=== PATIENT | female | born 1975 | race Caucasian/White ===

== ENCOUNTER 2017-08-22 08:19 | Inpatient (IN) | payer MEDICAID ==
[~2017-08-22] VITALS: Ht 162.6 cm; Wt 99.8 kg
[2017-08-22 08:26] VITALS: BP_SYST 140
[2017-08-22] MEDS ORDERED: LORazepam 2 MG/ML VIAL (FOR ER USE) IVP ONE (09:00)
[2017-08-22] MEDS ORDERED: METH500T PO (09:04)
[2017-08-22] MEDS ORDERED: LORA-673 PO (09:04)
[2017-08-22] MEDS ORDERED: MORP15TA60 PO (09:04)
[2017-08-22] MEDS ORDERED: ALBMDI INH (09:04)
[2017-08-22] MEDS ORDERED: GABA-533 PO (09:04)
[2017-08-22] MEDS ORDERED: LEVO150T PO (09:04)
[2017-08-22] MEDS ORDERED: LUBI24CA5 PO (09:04)
[2017-08-22] MEDS ORDERED: HYDR-4100 PO (09:04)
[2017-08-22] MEDS ORDERED: PARO20TA51 PO (09:04)
[2017-08-22] MEDS ORDERED: MONT10TA25 PO (09:04)
[2017-08-22] MEDS ORDERED: RANI-362 PO (09:04)
[2017-08-22 09:13] LABS: BILIRUBIN,URINE NEGATIVE (NEGATIVE); BLOOD, URINE NEGATIVE (NEGATIVE); CLARITY/URINE CLEAR (CLEAR); COLOR,URINE YELLOW (YELLOW); GLUCOSE,URINE NEGATIVE (NEGATIVE); KETONES,URINE NEGATIVE (NEGATIVE); LEUKOCYTE ESTERASE ,URINE NEGATIVE (NEGATIVE); NITRITE, URINE NEGATIVE (NEGATIVE); PH,URINE 6.5 (5.0-8.0); PROTEIN URINE NEGATIVE (NEGATIVE); UROBILINOGEN,URINE 0.2 (0.2-1.0)
[2017-08-22 09:17] LABS: BASOPHILS % (AUTO) 0.4 % (0.0-2.0); EOSINOPHILS # (AUTO) 0.2 K/uL (0.0-0.4); EOSINOPHILS % (AUTO) 1.8 % (0.0-4.0); HEMATOCRIT 40.6 % (36-48); HEMOGLOBIN 13.1 g/dL (12.0-16.0); LYMPHOCYTES # (AUTO) 1.8 K/uL (1.0-5.5); LYMPHOCYTES % (AUTO) 15.6 % (20.5-51.5); MEAN CORPUSCULAR HEMOGLOBIN 28 pg (27-31); MEAN CORPUSCULAR HGB CONC 32 % (32-36); MEAN CORPUSCULAR VOLUME 85 fL (79.0-98.0); MONOCYTES # (AUTO) 0.6 K/uL (0.0-1.0); MONOCYTES % (AUTO) 4.8 % (1.7-9.3); NEUTROPHILS % (AUTO) 77.4 % (40.0-70.0); PLATELET COUNT (AUTO) 343 K/uL (130-430); RED BLOOD CELL COUNT(AUTO) 4.76 MIL/uL (4.2-6.2); RED CELL DISTRIBUTION WIDTH 13.6 % (9.0-15.0); WHITE BLOOD COUNT (AUTO) 11.6 K/uL (4.8-10.8)
[2017-08-22 09:18] LABS: CALCIUM 9.3 mg/dL (8.4-11.0); CREATININE 0.57 mg/dL (0.55-1.30); POTASSIUM 4.3 mmol/L (3.5-5.1)
[2017-08-22 09:23] LABS: ALBUMIN 3.5 g/dL (3.4-4.8); TOTAL BILIRUBIN 0.3 mg/dL (0.0-1.0)
[2017-08-22] MEDS ORDERED: levETIRAcetam 500 MG TABLET PO ONE (10:15)
[2017-08-22 11:13] VITALS: BP_SYST 135
[2017-08-22] MEDS ORDERED: ALBUTEROL MDI INHALATION 8 GM INH INH PRN (12:00)
[2017-08-22] MEDS ORDERED: ALBUTEROL SULFATE (PRN) 2.5 MG/3 ML VIAL.NEB INH (12:30)
[2017-08-22 12:53] VITALS: BP_SYST 135
[2017-08-22] MEDS ORDERED: METHOCARBAMOL 500 MG TABLET PO SCH (13:00)
[2017-08-22] MEDS: GABAPENTIN 400 MG CAPSULE PO SCH ×3 (13:02→21:23)
[2017-08-22] MEDS ORDERED: LEVOTHYROXINE SODIUM 0.15 MG TABLET PO ONE (14:00)
[2017-08-22] MEDS: METHOCARBAMOL 500 MG TABLET PO SCH ×2 (14:09→21:23)
[2017-08-22] MEDS ORDERED: ONDANSETRON HCL 4 MG/2 ML VIAL IVP ONE (14:45)
[2017-08-22 15:30] VITALS: BP_SYST 117
[2017-08-22] MEDS: LORazepam 2 MG/ML VIAL IVP PRN (16:10)
[2017-08-22 17:29] LABS: BARBITURATE, URINE NEGATIVE (NEG <=200); BENZODIAZEPINE, URINE POSITIVE (NEG <=150); CANNABINOID, URINE NEGATIVE (NEG <=50); COCAINE, URINE NEGATIVE (NEG <=150); METHAMPHETAMINES SCREEN,URINE NEGATIVE (NEG <=500); OPIATE, URINE POSITIVE (NEG <=100); PHENCYCLIDINE SCREEN,URINE NEGATIVE (NEG <=25); UR TRICYCLIC ANTIDEPRESSANTS NEGATIVE (NEG <=300); URINE AMPHETAMINE NEGATIVE (NEG <=500); URINE METHADONE NEGATIVE (NEG <=200); URINE OXYCODONE SCREEN NEGATIVE (NEG <=100); URINE PROPOXYPHENE SCREEN NEGATIVE (NEG <=300)
[2017-08-22] MEDS: LUBIPROSTONE 24 MCG CAPSULE PO SCH (18:00)
[2017-08-22] MEDS ORDERED: MONTELUKAST 10 MG TABLET PO SCH (18:00)
[2017-08-22 20:00] VITALS: BP_SYST 107
[2017-08-22] MEDS ORDERED: MORPHINE SULFATE 15 MG TABLET.SA PO SCH (21:00)
[2017-08-22] MEDS: ONDANSETRON HCL 4 MG/2 ML VIAL IVP PRN (21:23)
[2017-08-22] MEDS: MORPHINE 2 MG/ML INJ. SYRINGE IVP PRN (21:24)
[2017-08-23] VITALS (7 sets, daily range): BP systolic 107–128
[2017-08-23] MEDS: MORPHINE 2 MG/ML INJ. SYRINGE IVP PRN ×3 (03:59→15:01)
[2017-08-23] MEDS: METHOCARBAMOL 500 MG TABLET PO SCH ×2 (06:03→13:31)
[2017-08-23] MEDS: LORazepam 2 MG/ML VIAL IVP PRN ×2 (06:14→09:09)
[2017-08-23] MEDS ORDERED: LEVOTHYROXINE SODIUM 0.15 MG TABLET PO SCH ×2 (07:00)
[2017-08-23 07:23] LABS: BASOPHILS # (AUTO) 0.1 K/uL (0.0-0.2); BASOPHILS % (AUTO) 0.6 % (0.0-2.0); EOSINOPHILS # (AUTO) 0.2 K/uL (0.0-0.4); EOSINOPHILS % (AUTO) 2.6 % (0.0-4.0); HEMATOCRIT 36.2 % (36-48); HEMOGLOBIN 12.1 g/dL (12.0-16.0); LYMPHOCYTES # (AUTO) 2.2 K/uL (1.0-5.5); LYMPHOCYTES % (AUTO) 23.7 % (20.5-51.5); MEAN CORPUSCULAR HEMOGLOBIN 29 pg (27-31); MEAN CORPUSCULAR HGB CONC 34 % (32-36); MEAN CORPUSCULAR VOLUME 85 fL (79.0-98.0); MONOCYTES # (AUTO) 0.6 K/uL (0.0-1.0); MONOCYTES % (AUTO) 6.7 % (1.7-9.3); NEUTROPHILS % (AUTO) 66.4 % (40.0-70.0); PLATELET COUNT (AUTO) 293 K/uL (130-430); RED BLOOD CELL COUNT(AUTO) 4.24 MIL/uL (4.2-6.2); RED CELL DISTRIBUTION WIDTH 13.7 % (9.0-15.0); WHITE BLOOD COUNT (AUTO) 9.1 K/uL (4.8-10.8)
[2017-08-23 08:02] LABS: CALCIUM 8.7 mg/dL (8.4-11.0); CREATININE 0.7 mg/dL (0.55-1.30); POTASSIUM 3.9 mmol/L (3.5-5.1); TOTAL BILIRUBIN 0.3 mg/dL (0.0-1.0)
[2017-08-23] MEDS: LUBIPROSTONE 24 MCG CAPSULE PO SCH (08:29)
[2017-08-23] MEDS: GABAPENTIN 400 MG CAPSULE PO SCH ×3 (08:30→16:06)
[2017-08-23] MEDS ORDERED: PARoxetine HCL 20 MG TABLET PO SCH (09:00)
[2017-08-23] MEDS: ONDANSETRON HCL 4 MG/2 ML VIAL IVP PRN ×2 (10:09→16:05)
[2017-08-23] MEDS ORDERED: *CUBICIN 4 MG/KG Q24H/PHARMACY XX PRN (11:00)
[2017-08-23] MEDS ORDERED: COMMUNICATION ORDER XX ONE (11:30)
[2017-08-23] MEDS ORDERED: DIPHENHYDRAMINE INJ 50 MG/ML VIAL IVP SCH (12:45)
[2017-08-23] MEDS ORDERED: DAPTOmycin 400 MG in NS 50 ML IV SCH (13:00)
[2017-08-23] MEDS ORDERED: MUPIROCIN 2% TOPICAL OINTMENT 22 GM NS SCH (21:00)
[2017-08-24] MEDS ORDERED: LEVOTHYROXINE SODIUM 0.075 MG TABLET PO SCH (07:00)
== END 2017-08-23 17:15 | disposition home health service (06) | DRG 53 ==
LOC: SED 08:19 → STU 10:51
PROVIDERS: ADMIT Internal Medicine; ATTEND Internal Medicine
DX: G40.909 Epilepsy, unspecified, not intractable, without status epilepticus (principal); L02.211 Cutaneous abscess of abdominal wall; B95.62 Methicillin resistant Staphylococcus aureus infection as the cause of diseases classified elsewhere; J45.909 Unspecified asthma, uncomplicated; G89.4 Chronic pain syndrome; E66.9 Obesity, unspecified; E87.6 Hypokalemia; E89.0 Postprocedural hypothyroidism; Z85.42 Personal history of malignant neoplasm of other parts of uterus; Z68.37 Body mass index [BMI] 37.0-37.9, adult; Z85.850 Personal history of malignant neoplasm of thyroid; Z90.710 Acquired absence of both cervix and uterus; Z88.9 Allergy status to unspecified drugs, medicaments and biological substances
CPT/HCPCS: 36415; 70450-TC; 70551; 71045; 80053; 80307; 81003; 83605; 83735-TC; 84443-TC; 84484; 85025; 87040-TC; 87070-TC; 87081; 93005; 95816; 96374; 99285; J0878; J1200; J2060; J2270; J2405

== ENCOUNTER → 2017-10-09 | Emergency (ER) | payer MEDICAID ==
[~2017-10-09] VITALS: Ht 154.9 cm; Wt 99.8 kg
[~2017-10-09] MED LIST: ALBMDI INH; GABA-533 PO; HYDR-4100 PO; KETOROLAC TROMETHAMINE 30 MG VIAL IVP ONE; LEVO150T PO; LORA-673 PO; LUBI24CA5 PO; METH500T PO; MONT10TA25 PO; MORP15TA60 PO; NACL 0.9% 1,000 ML IV ONE; ONDANSETRON HCL 4 MG/2 ML VIAL IVP ONE; PANTOPRAZOLE SODIUM 40 MG/VIAL (PROTONIX) IVP ONE; PARO20TA51 PO; RANI-362 PO
[2017-10-09 10:35] VITALS: BP_SYST 114
[2017-10-09 12:20] LABS: BASOPHILS # (AUTO) 0.2 K/uL (0.0-0.2); BASOPHILS % (AUTO) 1.5 % (0.0-2.0); EOSINOPHILS % (AUTO) 0.2 % (0.0-4.0); HEMATOCRIT 41.9 % (36-48); HEMOGLOBIN 13.7 g/dL (12.0-16.0); LYMPHOCYTES # (AUTO) 1.5 K/uL (1.0-5.5); LYMPHOCYTES % (AUTO) 11.8 % (20.5-51.5); MEAN CORPUSCULAR HEMOGLOBIN 27 pg (27-31); MEAN CORPUSCULAR HGB CONC 33 % (32-36); MEAN CORPUSCULAR VOLUME 83 fL (79.0-98.0); MONOCYTES # (AUTO) 0.4 K/uL (0.0-1.0); MONOCYTES % (AUTO) 3.2 % (1.7-9.3); NEUTROPHILS # (AUTO) 10.2 K/uL (1.8-7.7); NEUTROPHILS % (AUTO) 83.3 % (40.0-70.0); PLATELET COUNT (AUTO) 332 K/uL (130-430); RED BLOOD CELL COUNT(AUTO) 5.03 MIL/uL (4.2-6.2); RED CELL DISTRIBUTION WIDTH 13.1 % (9.0-15.0); WHITE BLOOD COUNT (AUTO) 12.4 K/uL (4.8-10.8)
[2017-10-09 12:37] LABS: ALBUMIN 3.5 g/dL (3.4-4.8); POTASSIUM 3.3 mmol/L (3.5-5.1); TOTAL BILIRUBIN 0.3 mg/dL (0.0-1.0)
[2017-10-09 12:41] LABS: BILIRUBIN,URINE NEGATIVE (NEGATIVE); BLOOD, URINE NEGATIVE (NEGATIVE); CLARITY/URINE SL HAZY (CLEAR); COLOR,URINE YELLOW (YELLOW); GLUCOSE,URINE NEGATIVE (NEGATIVE); KETONES,URINE 1+ (NEGATIVE); LEUKOCYTE ESTERASE ,URINE NEGATIVE (NEGATIVE); NITRITE, URINE NEGATIVE (NEGATIVE); PH,URINE 6.5 (5.0-8.0); PROTEIN URINE NEGATIVE (NEGATIVE)
[2017-10-09 12:43] LABS: CALCIUM 8.8 mg/dL (8.4-11.0)
[2017-10-09 12:47] LABS: CREATININE 0.72 mg/dL (0.55-1.30)
[2017-10-09 14:53] VITALS: BP_SYST 125
== END | disposition still patient (30) ==
LOC: SED 10:12
DX: R11.10 Vomiting, unspecified (principal); F41.9 Anxiety disorder, unspecified; Z85.850 Personal history of malignant neoplasm of thyroid; Z88.0 Allergy status to penicillin; Z88.2 Allergy status to sulfonamides; Z88.1 Allergy status to other antibiotic agents; Z88.5 Allergy status to narcotic agent; Z90.49 Acquired absence of other specified parts of digestive tract; Z90.710 Acquired absence of both cervix and uterus; Z88.8 Allergy status to other drugs, medicaments and biological substances; Z79.899 Other long term (current) drug therapy
CPT/HCPCS: 36415; 74176; 80053; 81003; 83690; 85025; 96361; 96374; 96375; 96376; 99285; C9113; J1885; J2405; J7030

== ENCOUNTER 2017-11-27 13:36 | Emergency (ER) | payer MEDICAID ==
[~2017-11-27] VITALS: Ht 154.9 cm; Wt 88.5 kg
[~2017-11-27 13:36] MED LIST changes: -KETOROLAC TROMETHAMINE 30 MG VIAL IVP ONE; -NACL 0.9% 1,000 ML IV ONE; -ONDANSETRON HCL 4 MG/2 ML VIAL IVP ONE; -PANTOPRAZOLE SODIUM 40 MG/VIAL (PROTONIX) IVP ONE
[2017-11-27 13:56] VITALS: BP_SYST 119
[2017-11-27 14:48] VITALS: BP_SYST 124
== END 2017-11-27 14:48 | disposition home or self-care (01) ==
LOC: SED 13:36
DX: R21 Rash and other nonspecific skin eruption (principal); R03.0 Elevated blood-pressure reading, without diagnosis of hypertension; F41.9 Anxiety disorder, unspecified; F32.9 Major depressive disorder, single episode, unspecified; Z90.710 Acquired absence of both cervix and uterus; Z88.0 Allergy status to penicillin; Z88.2 Allergy status to sulfonamides; Z88.1 Allergy status to other antibiotic agents; Z79.899 Other long term (current) drug therapy
CPT/HCPCS: 99283

== ENCOUNTER 2017-12-11 16:08 | Emergency (ER) | payer MEDICAID ==
[~2017-12-11] VITALS: Ht 154.9 cm; Wt 95.3 kg
[2017-12-11 16:13] VITALS: BP_SYST 133
--- NOTE | 2017-12-11 16:24 | NUR ---
Patient to ER bed 2 to gown for evaluation. Side rails up. Report given to Luly ARITA.
--- NOTE | 2017-12-11 16:27 | NUR ---
Pt brought by self,A&Ox4, pt presents to ER with bump and redmark on R lower abdomen,no discharge noted, pt states she has Hx of multiple abscess, also pt states she was diagnosed with shingles a week ago,pt on acyclovir , pt is afebrile, VS WNL.
--- NOTE | 2017-12-11 16:38 | NUR ---
ER ERIBERTO Oliva examining patient.
[2017-12-11] MEDS ORDERED: LIDOCAINE/EPI 2% 1:100000 20 ML VIAL INJ ONE (16:45)
[2017-12-11] MEDS ORDERED: LIDOCAINE 1% 10 MG/ML, 20 ML MDV INJ ONE (17:00)
[2017-12-11] MEDS ORDERED: HYDROcodone/ACETAMIN 7.5-325 MG TAB PO ONE (17:00)
[2017-12-11] MEDS ORDERED: HYDROcodone/ACETAMIN 7.5-325 MG TAB ONE (17:01)
--- NOTE | 2017-12-11 17:02 | NUR ---
Pain medication given, pt tolerated well. Medication would not scan, had to get from a different pyxis. Hazel WEI is at bedside performing I&D in sterile techinque
[2017-12-11 17:21] VITALS: BP_SYST 133
--- NOTE | 2017-12-11 17:21 | NUR ---
Note undone in EDM - 12/11/17 at 1723 by [email or web address] Patient given written and verbal discharge instructions and verbalizes understanding. ER MD discussed with patient the results and treatment provided. Patient in stable condition. ID arm band removed. IV catheter removed intact and dressing applied, no active bleeding. Rx of Muporocin and [place] given. Patient educated on pain management and to follow up with PMD. Pain Scale 2/10 tolerable for pt Opportunity for questions provided and answered. Medication side effect fact sheet provided.
== END 2017-12-11 17:21 | disposition home or self-care (01) ==
LOC: SED 16:08
DX: L02.211 Cutaneous abscess of abdominal wall (principal); R03.0 Elevated blood-pressure reading, without diagnosis of hypertension; F41.9 Anxiety disorder, unspecified; Z90.710 Acquired absence of both cervix and uterus; Z85.850 Personal history of malignant neoplasm of thyroid; Z79.899 Other long term (current) drug therapy; Z88.0 Allergy status to penicillin; Z88.2 Allergy status to sulfonamides; Z88.1 Allergy status to other antibiotic agents; Z88.8 Allergy status to other drugs, medicaments and biological substances
CPT/HCPCS: 99283; J2001

== ENCOUNTER 2018-02-19 12:15 | Emergency (ER) | payer MEDICAID ==
[~2018-02-19] VITALS: Ht 154.9 cm; Wt 97.5 kg
[~2018-02-19 12:15] MED LIST changes: +PARO-63 PO; -PARO20TA51 PO
[2018-02-19 12:19] VITALS: BP_SYST 107
--- NOTE | 2018-02-19 14:00 | NUR ---
Called patient, no answer.
--- NOTE | 2018-02-19 14:00 | NUR ---
Patient to ER bed 07 to gown for evaluation. Side rails up.
--- NOTE | 2018-02-19 14:32 | NUR ---
Called for patient. Unable to locate patient.
--- NOTE | 2018-02-19 14:41 | NUR ---
Called for patient. Unable to locate patient. Patient presumed to have left without being seen.
== END 2018-02-19 14:41 | disposition left against medical advice (07) ==
LOC: SED 12:15
DX: R42 Dizziness and giddiness (principal); Z53.21 Procedure and treatment not carried out due to patient leaving prior to being seen by health care provider

== ENCOUNTER 2018-03-04 05:20 | Emergency (ER) | payer MEDICAID ==
[~2018-03-04] VITALS: Ht 154.9 cm; Wt 97.5 kg
[2018-03-04 05:23] VITALS: BP_SYST 119
[2018-03-04] MEDS ORDERED: LIDOCAINE 1% 10 MG/ML, 20 ML MDV IJ ONE (06:30)
[2018-03-04 06:55] VITALS: BP_SYST 119
== END 2018-03-04 06:55 | disposition home or self-care (01) ==
LOC: SED 05:20
DX: L02.211 Cutaneous abscess of abdominal wall (principal); E03.9 Hypothyroidism, unspecified; F32.9 Major depressive disorder, single episode, unspecified; F41.9 Anxiety disorder, unspecified; Z86.14 Personal history of Methicillin resistant Staphylococcus aureus infection; Z90.710 Acquired absence of both cervix and uterus; Z79.899 Other long term (current) drug therapy; Z88.6 Allergy status to analgesic agent; Z88.1 Allergy status to other antibiotic agents; Z88.5 Allergy status to narcotic agent; Z88.0 Allergy status to penicillin; Z88.2 Allergy status to sulfonamides
CPT/HCPCS: 99283

== ENCOUNTER 2018-03-06 10:29 | Emergency (ER) | payer MEDICAID ==
[~2018-03-06] VITALS: Ht 154.9 cm; Wt 97.5 kg
[2018-03-06 10:33] VITALS: BP_SYST 112
== END 2018-03-06 11:34 | disposition home or self-care (01) ==
LOC: SED 10:29
DX: S50.02XA Contusion of left elbow, initial encounter (principal); F32.9 Major depressive disorder, single episode, unspecified; F41.9 Anxiety disorder, unspecified; Z85.850 Personal history of malignant neoplasm of thyroid; W22.8XXA Striking against or struck by other objects, initial encounter; Y93.89 Activity, other specified; Y92.89 Other specified places as the place of occurrence of the external cause; Y99.8 Other external cause status
CPT/HCPCS: 99284; J7120

== ENCOUNTER 2018-10-17 16:32 | Emergency (ER) | payer MEDICAID ==
[~2018-10-17] VITALS: Ht 154.9 cm; Wt 99.8 kg
[2018-10-17 16:32] VITALS: BP_SYST 119
--- NOTE | 2018-10-17 16:32 | NUR ---
BROUGHT BACK TO BED #3 AND TRIAGED. REPORT GIVEN TO TASNEEM
--- NOTE | 2018-10-17 16:45 | NUR ---
Patient presented to ER with C/o chest pain. atient A&Ox4, afebrile, skin pink, pain 10/10, respirations equal bilat. Patient placed on quality assurance monitor final and pulse-ox monitor, EKG completed upon arrival. Patietn states chest pain started 10/15/18 after PICC line placement, for past 2 days chest pain has increased prompting ER visit today. patient states she is receiving IV ABX treatment via PICC line with Dr. Mahoney. Patient states chest pain radiating to left arm.
--- NOTE | 2018-10-17 17:01 | NUR ---
ER Dr. Barraza at bedside examining patient.
[2018-10-17] MEDS ORDERED: KETOROLAC TROMETHAMINE 30 MG VIAL IVP ONE (17:15)
--- NOTE | 2018-10-17 17:15 | NUR ---
energy and conservation technician at bedside for X-ray
--- NOTE | 2018-10-17 17:21 | NUR ---
venipuncture at bedside for blood speciman collection
[2018-10-17 17:41] LABS: BASOPHILS # (AUTO) 0.1 K/uL (0.0-0.2); BASOPHILS % (AUTO) 0.5 % (0.0-2.0); EOSINOPHILS # (AUTO) 0.3 K/uL (0.0-0.4); EOSINOPHILS % (AUTO) 2.6 % (0.0-4.0); HEMATOCRIT 35.4 % (36-48); HEMOGLOBIN 11.4 g/dL (12.0-16.0); LYMPHOCYTES # (AUTO) 1.8 K/uL (1.0-5.5); LYMPHOCYTES % (AUTO) 14.3 % (20.5-51.5); MEAN CORPUSCULAR HEMOGLOBIN 26 pg (27-31); MEAN CORPUSCULAR HGB CONC 32 % (32-36); MEAN CORPUSCULAR VOLUME 80 fL (79.0-98.0); MONOCYTES # (AUTO) 0.7 K/uL (0.0-1.0); MONOCYTES % (AUTO) 5.4 % (1.7-9.3); NEUTROPHILS # (AUTO) 9.9 K/uL (1.8-7.7); NEUTROPHILS % (AUTO) 77.2 % (40.0-70.0); PLATELET COUNT (AUTO) 288 K/uL (130-430); RED BLOOD CELL COUNT(AUTO) 4.46 MIL/uL (4.2-6.2); RED CELL DISTRIBUTION WIDTH 16.8 % (9.0-15.0); WHITE BLOOD COUNT (AUTO) 12.8 K/uL (4.8-10.8)
[2018-10-17 17:49] LABS: CALCIUM 9.2 mg/dL (8.4-11.0); CREATININE 0.75 mg/dL (0.55-1.30); POTASSIUM 3.4 mmol/L (3.5-5.1)
[2018-10-17 17:54] LABS: ALBUMIN 3.2 g/dL (3.4-4.8); TOTAL BILIRUBIN 0.3 mg/dL (0.0-1.0)
--- NOTE | 2018-10-17 18:18 | NUR ---
radiology/air and hydronic balancing technician at bedside
[2018-10-17] MEDS ORDERED: MORPHINE 4 MG/ML INJ. SYRINGE IVP ONE (18:30)
--- NOTE | 2018-10-17 19:10 | NUR ---
1909 - Received report from LYLA Mcneal. Pt here for pain s/p PICC line placement 2 days ago. Pt states pain is 10/10, just received morphine IV, will re-assess. Vss. Awaiting lab results and dispo.
--- NOTE | 2018-10-17 19:10 | NUR ---
Report given to Naz ARITA
--- NOTE | 2018-10-17 19:50 | NUR ---
1950 - Pt up to rest room, states pain has decreased to 7/10. Awaiting dispo. Resp even and unlabored, vss, A&OX4. Ambulatory w/ steady gait, no assistance.
[2018-10-17 20:10] VITALS: BP_SYST 125
--- NOTE | 2018-10-17 20:10 | NUR ---
2009 - Patient given written and verbal discharge instructions and verbalizes understanding. ER MD discussed with patient the results and treatment provided. Patient in stable condition. ID arm band removed. PICC line remained in place, no redness, swelling noted, dressing dry and intact Patient educated on pain management and to follow up with PMD. Pain Scale 5. Opportunity for questions provided and answered. Medication side effect fact sheet provided.
== END 2018-10-17 20:10 | disposition home or self-care (01) ==
LOC: SED 16:32
DX: R07.89 Other chest pain (principal); F41.9 Anxiety disorder, unspecified; F32.9 Major depressive disorder, single episode, unspecified; Z85.850 Personal history of malignant neoplasm of thyroid; Z90.89 Acquired absence of other organs; Z90.710 Acquired absence of both cervix and uterus; Z88.0 Allergy status to penicillin; Z88.1 Allergy status to other antibiotic agents; Z88.2 Allergy status to sulfonamides; Z88.6 Allergy status to analgesic agent; Z88.8 Allergy status to other drugs, medicaments and biological substances; Z79.899 Other long term (current) drug therapy
CPT/HCPCS: 36415; 71045; 80053; 82550; 84484; 85025; 85379; 85610; 93005; 93971; 96374; 96375; 99284; J1885; J2270

== ENCOUNTER 2018-12-19 10:48 | Emergency (ER) | payer MEDICAID ==
[~2018-12-19] VITALS: Ht 154.9 cm; Wt 106.6 kg
[2018-12-19 10:48] VITALS: BP_SYST 113
[2018-12-19] MEDS ORDERED: PROCHLORPERAZINE EDISYLATE 10 MG/2 ML VIAL IVP ONE (11:15)
[2018-12-19] MEDS ORDERED: KETOROLAC TROMETHAMINE 30 MG VIAL IVP ONE (11:15)
[2018-12-19] MEDS ORDERED: MORPHINE 4 MG/ML INJ. SYRINGE IVP ONE (11:15)
[2018-12-19] MEDS ORDERED: NACL 0.9% 1,000 ML IV ONE (11:15)
[2018-12-19 11:32] LABS: BASOPHILS % (AUTO) 0.4 % (0.0-2.0); EOSINOPHILS # (AUTO) 0.1 K/uL (0.0-0.4); HEMATOCRIT 36.1 % (36-48); HEMOGLOBIN 11.7 g/dL (12.0-16.0); LYMPHOCYTES # (AUTO) 1.2 K/uL (1.0-5.5); LYMPHOCYTES % (AUTO) 13.5 % (20.5-51.5); MEAN CORPUSCULAR HEMOGLOBIN 26 pg (27-31); MEAN CORPUSCULAR HGB CONC 32 % (32-36); MEAN CORPUSCULAR VOLUME 79 fL (79.0-98.0); MONOCYTES # (AUTO) 0.5 K/uL (0.0-1.0); MONOCYTES % (AUTO) 5.8 % (1.7-9.3); NEUTROPHILS # (AUTO) 7.3 K/uL (1.8-7.7); NEUTROPHILS % (AUTO) 79.3 % (40.0-70.0); PLATELET COUNT (AUTO) 291 K/uL (130-430); RED BLOOD CELL COUNT(AUTO) 4.57 MIL/uL (4.2-6.2); RED CELL DISTRIBUTION WIDTH 16.3 % (9.0-15.0); WHITE BLOOD COUNT (AUTO) 9.2 K/uL (4.8-10.8)
[2018-12-19 11:48] LABS: BILIRUBIN,URINE NEGATIVE (NEGATIVE); BLOOD, URINE NEGATIVE (NEGATIVE); CLARITY/URINE SL HAZY (CLEAR); COLOR,URINE YELLOW (YELLOW); GLUCOSE,URINE NEGATIVE (NEGATIVE); KETONES,URINE NEGATIVE (NEGATIVE); LEUKOCYTE ESTERASE ,URINE NEGATIVE (NEGATIVE); NITRITE, URINE NEGATIVE (NEGATIVE); PH,URINE 6.5 (5.0-8.0); PROTEIN URINE NEGATIVE (NEGATIVE); UROBILINOGEN,URINE 0.2 (0.2-1.0)
[2018-12-19 11:57] LABS: CALCIUM 8.7 mg/dL (8.4-11.0); CREATININE 0.69 mg/dL (0.55-1.30); POTASSIUM 3.6 mmol/L (3.5-5.1)
[2018-12-19 12:00] LABS: PROTHROMBIN TIME 10.1 SECS (9.5-12.5)
[2018-12-19 12:01] LABS: ALBUMIN 3.2 g/dL (3.4-4.8); TOTAL BILIRUBIN 0.2 mg/dL (0.0-1.0)
[2018-12-19 12:08] LABS: BARBITURATE, URINE NEGATIVE (NEG <=200); BENZODIAZEPINE, URINE NEGATIVE (NEG <=150); CANNABINOID, URINE NEGATIVE (NEG <=50); COCAINE, URINE NEGATIVE (NEG <=150); METHAMPHETAMINES SCREEN,URINE NEGATIVE (NEG <=500); OPIATE, URINE NEGATIVE (NEG <=100); PHENCYCLIDINE SCREEN,URINE NEGATIVE (NEG <=25); UR TRICYCLIC ANTIDEPRESSANTS NEGATIVE (NEG <=300); URINE AMPHETAMINE NEGATIVE (NEG <=500); URINE METHADONE NEGATIVE (NEG <=200); URINE OXYCODONE SCREEN NEGATIVE (NEG <=100); URINE PROPOXYPHENE SCREEN NEGATIVE (NEG <=300)
[2018-12-19 13:27] VITALS: BP_SYST 113
== END 2018-12-19 13:27 | disposition home or self-care (01) ==
LOC: SED 10:48
DX: R51 Headache (principal); F41.9 Anxiety disorder, unspecified; F32.9 Major depressive disorder, single episode, unspecified; Z85.850 Personal history of malignant neoplasm of thyroid; Z88.0 Allergy status to penicillin; Z88.1 Allergy status to other antibiotic agents; Z88.2 Allergy status to sulfonamides; Z88.6 Allergy status to analgesic agent; Z88.8 Allergy status to other drugs, medicaments and biological substances; Z79.899 Other long term (current) drug therapy
CPT/HCPCS: 36415; 70450; 80053; 80307; 81003; 81025; 84484; 84703; 85025; 85610; 85730; 96361; 96374; 96375; 99284; J0780; J1885; J2270; J7030

== ENCOUNTER 2019-01-05 09:21 | Emergency (ER) | payer MEDICAID ==
[~2019-01-05] VITALS: Ht 154.9 cm; Wt 103.4 kg
[2019-01-05 09:24] VITALS: BP_SYST 116
[2019-01-05] MEDS ORDERED: FAMOTIDINE PF 20 MG/2 ML VIAL IVP ONE (09:45)
[2019-01-05] MEDS ORDERED: MORPHINE 4 MG/ML INJ. SYRINGE IVP ONE ×2 (09:45→11:15)
[2019-01-05] MEDS ORDERED: KETOROLAC TROMETHAMINE 15 MG VIAL IVP ONE (09:45)
[2019-01-05] MEDS ORDERED: NACL 0.9% 1,000 ML IV ONE (09:45)
[2019-01-05] MEDS ORDERED: ONDANSETRON HCL 4 MG/2 ML VIAL IVP ONE (09:45)
[2019-01-05 10:00] LABS: BASOPHILS # (AUTO) 0.1 K/uL (0.0-0.2); BASOPHILS % (AUTO) 0.5 % (0.0-2.0); EOSINOPHILS # (AUTO) 0.1 K/uL (0.0-0.4); EOSINOPHILS % (AUTO) 0.7 % (0.0-4.0); HEMATOCRIT 39.8 % (36-48); HEMOGLOBIN 12.8 g/dL (12.0-16.0); LYMPHOCYTES # (AUTO) 1.5 K/uL (1.0-5.5); LYMPHOCYTES % (AUTO) 15.2 % (20.5-51.5); MEAN CORPUSCULAR HEMOGLOBIN 26 pg (27-31); MEAN CORPUSCULAR HGB CONC 32 % (32-36); MEAN CORPUSCULAR VOLUME 80 fL (79.0-98.0); MONOCYTES # (AUTO) 0.4 K/uL (0.0-1.0); MONOCYTES % (AUTO) 4.1 % (1.7-9.3); NEUTROPHILS # (AUTO) 7.8 K/uL (1.8-7.7); NEUTROPHILS % (AUTO) 79.5 % (40.0-70.0); PLATELET COUNT (AUTO) 310 K/uL (130-430); RED BLOOD CELL COUNT(AUTO) 4.95 MIL/uL (4.2-6.2); RED CELL DISTRIBUTION WIDTH 16.9 % (9.0-15.0); WHITE BLOOD COUNT (AUTO) 9.9 K/uL (4.8-10.8)
[2019-01-05 10:15] LABS: CALCIUM 8.7 mg/dL (8.4-11.0); CREATININE 0.76 mg/dL (0.55-1.30); POTASSIUM 3.8 mmol/L (3.5-5.1)
[2019-01-05 10:20] LABS: ALBUMIN 3.4 g/dL (3.4-4.8); TOTAL BILIRUBIN 0.4 mg/dL (0.0-1.0)
[2019-01-05 13:31] VITALS: BP_SYST 105
== END 2019-01-05 12:30 | disposition home or self-care (01) ==
LOC: SED 09:21
DX: R10.10 Upper abdominal pain, unspecified (principal); R11.10 Vomiting, unspecified; R19.7 Diarrhea, unspecified; F32.9 Major depressive disorder, single episode, unspecified; F41.9 Anxiety disorder, unspecified; Z90.89 Acquired absence of other organs; Z88.0 Allergy status to penicillin; Z88.1 Allergy status to other antibiotic agents; Z88.2 Allergy status to sulfonamides; Z88.6 Allergy status to analgesic agent; Z88.8 Allergy status to other drugs, medicaments and biological substances; Z79.899 Other long term (current) drug therapy
CPT/HCPCS: 36415; 74021; 76700; 80053; 81025; 83690; 85025; 96361; 96374; 96375; 96376; 99284; J1885; J2270; J2405; J3490; J7030

== ENCOUNTER 2019-01-06 10:27 | Emergency (ER) | payer MEDICAID ==
[~2019-01-06] VITALS: Ht 154.9 cm; Wt 103.0 kg
[2019-01-06 10:39] VITALS: BP_SYST 126
--- NOTE | 2019-01-06 11:35 | NUR ---
Patient to ER bed 8 to gown for evaluation. Side rails up. Patient cohorted with significant other per patient request. Report given to Luly ARITA.
--- NOTE | 2019-01-06 11:36 | NUR ---
Pt brought by self, A&Ox4, pt presents to ER with epigastric pain, N/V, pt was recently seen at ER and given Zofran but symptoms not improving , skin pink and warm, cap refill <3.
--- NOTE | 2019-01-06 11:41 | NUR ---
JIMI Owens at bedside examining patient.
[2019-01-06] MEDS ORDERED: NACL 0.9% 1,000 ML IV ONE (11:42)
[2019-01-06] MEDS ORDERED: METOCLOPRAMIDE HCL 10 MG/2 ML VIAL IVP ONE (11:45)
[2019-01-06] MEDS ORDERED: MORPHINE 4 MG/ML INJ. SYRINGE IVP ONE ×2 (11:45→13:45)
[2019-01-06 12:08] LABS: BASOPHILS % (AUTO) 0.3 % (0.0-2.0); EOSINOPHILS # (AUTO) 0.1 K/uL (0.0-0.4); EOSINOPHILS % (AUTO) 0.6 % (0.0-4.0); HEMATOCRIT 40.3 % (36-48); LYMPHOCYTES # (AUTO) 0.8 K/uL (1.0-5.5); LYMPHOCYTES % (AUTO) 9.2 % (20.5-51.5); MEAN CORPUSCULAR HEMOGLOBIN 26 pg (27-31); MEAN CORPUSCULAR HGB CONC 32 % (32-36); MONOCYTES # (AUTO) 0.5 K/uL (0.0-1.0); MONOCYTES % (AUTO) 6.3 % (1.7-9.3); NEUTROPHILS # (AUTO) 7.3 K/uL (1.8-7.7); NEUTROPHILS % (AUTO) 83.6 % (40.0-70.0); PLATELET COUNT (AUTO) 252 K/uL (130-430); RED BLOOD CELL COUNT(AUTO) 4.95 MIL/uL (4.2-6.2); RED CELL DISTRIBUTION WIDTH 16.6 % (9.0-15.0); WHITE BLOOD COUNT (AUTO) 8.7 K/uL (4.8-10.8)
[2019-01-06 12:13] LABS: MEAN CORPUSCULAR VOLUME 82 fL (79.0-98.0)
[2019-01-06 12:20] LABS: BILIRUBIN,URINE NEGATIVE (NEGATIVE); BLOOD, URINE NEGATIVE (NEGATIVE); CLARITY/URINE HAZY (CLEAR); COLOR,URINE AMBER (YELLOW); GLUCOSE,URINE NEGATIVE (NEGATIVE); KETONES,URINE NEGATIVE (NEGATIVE); LEUKOCYTE ESTERASE ,URINE NEGATIVE (NEGATIVE); NITRITE, URINE NEGATIVE (NEGATIVE); PROTEIN URINE TRACE (NEGATIVE); UROBILINOGEN,URINE 0.2 (0.2-1.0)
[2019-01-06 12:20] LABS: CALCIUM 9.3 mg/dL (8.4-11.0); CREATININE 0.83 mg/dL (0.55-1.30); POTASSIUM 3.9 mmol/L (3.5-5.1)
[2019-01-06 12:26] LABS: ALBUMIN 3.5 g/dL (3.4-4.8); TOTAL BILIRUBIN 0.4 mg/dL (0.0-1.0)
[2019-01-06 12:27] LABS: BACTERIA,URINE FEW /HPF (None Seen); MUCUS,URINE 3+ /LPF (None Seen); RBC,URINE 0-3 /HPF (0-3); WBC,URINE 0-3 /HPF (0-3)
--- NOTE | 2019-01-06 12:30 | NUR ---
Pt resting at this time, VS WNL, respirations even and unlabored
[2019-01-06 14:41] VITALS: BP_SYST 126
--- NOTE | 2019-01-06 14:43 | NUR ---
Patient given written and verbal discharge instructions and verbalizes understanding. ER MD discussed with patient the results and treatment provided. Patient in stable condition. ID arm band removed. IV catheter removed intact and dressing applied, no active bleeding. Rx of [place] Reglan given. Patient educated on pain management and to follow up with PMD. Pain Scale 0/10 Opportunity for questions provided and answered. Medication side effect fact sheet provided.
[2019-01-07] MEDS ORDERED: HYDR2TAB4 PO (13:09)
[2019-01-07] MEDS ORDERED: MORP15TA60 PO (13:11)
== END 2019-01-06 14:41 | disposition home or self-care (01) ==
LOC: SED 10:27
DX: R10.10 Upper abdominal pain, unspecified (principal); R11.10 Vomiting, unspecified; R19.7 Diarrhea, unspecified; F32.9 Major depressive disorder, single episode, unspecified; F41.9 Anxiety disorder, unspecified; Z85.850 Personal history of malignant neoplasm of thyroid; Z88.0 Allergy status to penicillin; Z88.1 Allergy status to other antibiotic agents; Z88.2 Allergy status to sulfonamides; Z88.6 Allergy status to analgesic agent; Z88.8 Allergy status to other drugs, medicaments and biological substances; Z79.899 Other long term (current) drug therapy
CPT/HCPCS: 36415; 74176; 80053; 81000; 81025; 83690; 85025; 96361; 96374; 96375; 96376; 99284; J2270; J2765; J7030

== ENCOUNTER 2019-01-07 08:03 | Inpatient (IN) | payer MEDICAID ==
[~2019-01-07] VITALS: Ht 154.9 cm; Wt 103.0 kg
[2019-01-07 08:09] VITALS: BP_SYST 122
--- NOTE | 2019-01-07 08:14 | NUR ---
Patient to ER bed 8 to gown for evaluation. Side rails up. Report given to Yariel ARITA.
--- NOTE | 2019-01-07 08:16 | NUR ---
Pt c/o abd pain with vomiting .Pt seen in ED x 2 days. Pt h/o chronic anxiety,back pain and depression.
--- NOTE | 2019-01-07 08:33 | NUR ---
ER at bedside examining patient.
[2019-01-07] MEDS ORDERED: NACL 0.9% 1,000 ML IV ONE (08:54)
[2019-01-07] MEDS ORDERED: fentaNYL CITRATE/PF 100 MCG/2 ML AMP IVP ONE (09:00)
[2019-01-07] MEDS ORDERED: HALOPERIDOL LACTATE 5 MG/ML VIAL IVP ONE (09:15)
[2019-01-07] MEDS ORDERED: NS 250 ML IV ONE (09:30)
[2019-01-07] MEDS ORDERED: PHYTONADIONE 10 MG/ML AMP IV ONE (09:30)
[2019-01-07 09:31] LABS: BASOPHILS % (AUTO) 0.3 % (0.0-2.0); EOSINOPHILS % (AUTO) 0.2 % (0.0-4.0); HEMATOCRIT 39.5 % (36-48); HEMOGLOBIN 12.8 g/dL (12.0-16.0); LYMPHOCYTES # (AUTO) 0.7 K/uL (1.0-5.5); LYMPHOCYTES % (AUTO) 8.1 % (20.5-51.5); MEAN CORPUSCULAR HEMOGLOBIN 26 pg (27-31); MEAN CORPUSCULAR HGB CONC 32 % (32-36); MEAN CORPUSCULAR VOLUME 82 fL (79.0-98.0); MONOCYTES # (AUTO) 0.5 K/uL (0.0-1.0); MONOCYTES % (AUTO) 5.7 % (1.7-9.3); NEUTROPHILS # (AUTO) 7.4 K/uL (1.8-7.7); NEUTROPHILS % (AUTO) 85.7 % (40.0-70.0); PLATELET COUNT (AUTO) 255 K/uL (130-430); RED BLOOD CELL COUNT(AUTO) 4.85 MIL/uL (4.2-6.2); RED CELL DISTRIBUTION WIDTH 16.8 % (9.0-15.0); WHITE BLOOD COUNT (AUTO) 8.6 K/uL (4.8-10.8)
--- NOTE | 2019-01-07 09:40 | NUR ---
pt medicated for pain.pt tolerated well.
[2019-01-07 09:44] LABS: CALCIUM 8.8 mg/dL (8.4-11.0); CREATININE 0.87 mg/dL (0.55-1.30); POTASSIUM 3.8 mmol/L (3.5-5.1)
[2019-01-07 09:50] LABS: ALBUMIN 3.3 g/dL (3.4-4.8); TOTAL BILIRUBIN 0.4 mg/dL (0.0-1.0)
--- NOTE | 2019-01-07 10:00 | NUR ---
pt medicated for nausea.
[2019-01-07] MEDS ORDERED: DIPHENHYDRAMINE INJ 50 MG/ML VIAL IVP ONE ×2 (10:30→13:30)
--- NOTE | 2019-01-07 10:30 | NUR ---
pt medicated for anxiety after administering Haldol.Pt given Benadryl.Continuing to monitor.
[2019-01-07] MEDS ORDERED: DIPHENHYDRAMINE INJ 50 MG/ML VIAL ONE ×2 (10:37→13:41)
--- NOTE | 2019-01-07 11:15 | NUR ---
Nausea and pain resolving per pt report.Pt resting.
[2019-01-07 11:20] LABS: BILIRUBIN,URINE NEGATIVE (NEGATIVE); CLARITY/URINE CLEAR (CLEAR); COLOR,URINE YELLOW (YELLOW); GLUCOSE,URINE NEGATIVE (NEGATIVE); KETONES,URINE 1+ (NEGATIVE); LEUKOCYTE ESTERASE ,URINE NEGATIVE (NEGATIVE); NITRITE, URINE NEGATIVE (NEGATIVE); PH,URINE 6.5 (5.0-8.0); PROTEIN URINE TRACE (NEGATIVE); UROBILINOGEN,URINE 0.2 (0.2-1.0)
[2019-01-07 11:25] LABS: BARBITURATE, URINE NEGATIVE (NEG <=200); BENZODIAZEPINE, URINE NEGATIVE (NEG <=150); CANNABINOID, URINE NEGATIVE (NEG <=50); COCAINE, URINE NEGATIVE (NEG <=150); METHAMPHETAMINES SCREEN,URINE NEGATIVE (NEG <=500); OPIATE, URINE POSITIVE (NEG <=100); PHENCYCLIDINE SCREEN,URINE NEGATIVE (NEG <=25); UR TRICYCLIC ANTIDEPRESSANTS NEGATIVE (NEG <=300); URINE AMPHETAMINE NEGATIVE (NEG <=500); URINE METHADONE NEGATIVE (NEG <=200); URINE OXYCODONE SCREEN NEGATIVE (NEG <=100); URINE PROPOXYPHENE SCREEN NEGATIVE (NEG <=300)
[2019-01-07 11:26] LABS: BLOOD, URINE TRACE (NEGATIVE)
[2019-01-07 11:31] LABS: BACTERIA,URINE FEW /HPF (None Seen); RBC,URINE 0-3 /HPF (0-3); WBC,URINE 0-3 /HPF (0-3)
[2019-01-07 11:32] LABS: MUCUS,URINE 1+ /LPF (None Seen)
--- NOTE | 2019-01-07 12:20 | NUR ---
Pt reports pain continuing to resolve
[2019-01-07] MEDS ORDERED: PANTOPRAZOLE SODIUM 40 MG/VIAL (PROTONIX) IVP ONE (12:45)
[2019-01-07] MEDS ORDERED: HYDR2TAB4 PO (13:09)
[2019-01-07] MEDS ORDERED: MORP15TA60 PO (13:11)
--- NOTE | 2019-01-07 13:12 | NUR ---
Medication reconciliation completed with information provided by pt. Any prior medication reconciliation on file was reviewed and corrected.
--- NOTE | 2019-01-07 13:35 | NUR ---
Patient will be admitted to care of . Admitted to medsurg unit. Will go to room 134A. Summary report printed. Report will be given at bedside.
--- NOTE | 2019-01-07 13:40 | NUR ---
ADMISSION NOTE Received patient from ER via bunny, received report from HORTENSIA ARITA. Patient admitted with diagnosis of ABDOMINAL PAIN. Patient oriented to hospital routine, call light, toileting and safety-
--- NOTE | 2019-01-07 13:50 | NUR ---
OPENING NOTE: PATIENT RESTING IN BED, AWAKE AND ALERT. INTRODUCED PATIENT TO CALL LIGHT, BED AND ROOM. PATIENT IS AAOX4, VERBALLY RESPONSIVE WITH CLEAR SPEECH. PATIENT ON ROOM AIR AND SATURATING AT 99% O2, NO ACUTE SIGNS OF RESP DISTRESS, NO SOB. BREATHING EVEN AND UNLABORED. IV INTACT AND PATENT, NO REDNESS/SWELLING. CONTINUE TO MONITOR.
[2019-01-07 13:57] VITALS: BP_SYST 123
--- NOTE | 2019-01-07 14:00 | NUR ---
CONSULTATION PAGED REASON FOR CONSULTATION:ABDOMINAL PAIN WAS CONSULT CALLED?Y PERSON WHO WAS NOTIFIED:TINY CONSULTING PHYSICIAN:RADHA HILLMAN TRANSIT PLANNING MANAGER SPECIALTY:GI TRANSIT PLANNING MANAGER PHONE NUMBER:[phone] REQUESTING PHYSICIAN:SHAYNA HORTON
[2019-01-07] MEDS ORDERED: METOCLOPRAMIDE HCL 10 MG/2 ML VIAL IVP PRN (14:30)
[2019-01-07] MEDS ORDERED: MORPHINE 2 MG/ML INJ. SYRINGE IVP PRN (14:30)
[2019-01-07] MEDS: D5NS 1,000 ML IV SCH ×2 (15:13→23:50)
[2019-01-07] MEDS: ONDANSETRON HCL 4 MG/2 ML VIAL IVP PRN (15:13)
[2019-01-07] MEDS: LORazepam 2 MG/ML VIAL IVP PRN ×2 (15:13→21:18)
--- NOTE | 2019-01-07 18:54 | NUR ---
CLOSING NOTE: PATIENT RESTING IN BED, HOB ELEVATED. RESTING WITH EYES CLOSED, AROUSABLE TO LIGHT STIMULI. NO ACUTE SIGNS OF RESP DISTRESS, NO SOB. BREATHING EVEN AND UNLABORED. IV INTACT AND PATENT, NO REDNESS/SWELLING TO SITE. WILL ENDORSE PLAN OF CARE TO NOC RN.
[2019-01-07 19:00] VITALS: BP_SYST 115
--- NOTE | 2019-01-07 19:00 | NUR ---
change of shift.pt.preset quiescent affect;calm,somnolent.pt.presents iv fluids infusing.pt.to submit to egd;01/08/19. general status stable.respiratory stsu stable;unlabored @room air.pt.capable to reposition self.call light/telephone w/in the reach of the pt.
[2019-01-07 20:00] VITALS: BP_SYST 115
--- NOTE | 2019-01-07 20:00 | NUR ---
pt.assessed.v/s assessed;values w/in normal limits,.pt.presents no c/o pain,nausea.diet status to convert to npo:midnight.pt.to submit to egd;01/08/19.consent is singed.diet status;clear liquids.i have apprised the pt.that i may provide snacks/beverages w/in the clear liquids category.pt.has requested jello/juices.i have provided the the snacks/beverages,iv fluids infusing via peripheral line:location;lt. wrist.general status stable.respiratory status stale;unlabored @room air.pt.capable to reposition self.call light./telephone w/in the reach of the pt.
--- NOTE | 2019-01-07 21:00 | NUR ---
2100p medication administered;pepcid;ivp.pt.had requested ativan;anxiety;i have administered ativan;1mg ivp. to f/u re;medication efficacy.
[2019-01-07] MEDS: PANTOPRAZOLE SODIUM 40 MG/VIAL (PROTONIX) IVP SCH (21:12)
--- NOTE | 2019-01-07 22:00 | NUR ---
pt.assessed.pt.presents quiescent affect;calm.somnolent.iv acces intact;patent;iv fluids infusing.general status stable. pt.capable to reposition self.call light/telephone w/in the reach of the pt.
--- NOTE | 2019-01-08 | NUR ---
pt.assessed.v.s assessed;values w/in normal limits.no c/o pain,nausea.iv access assessed;intact;patent;iv fluids infusing.i have re-iterated to the pt.that the diet status has converted to npo::2/t egd in am.01/08/19.pt.capable to reposition self.general status stable.respiratory statu stable.call light/telephone placed w/in the reach of the pt.
--- NOTE | 2019-01-08 02:00 | NUR ---
pt.assessed.presents quiescent affect;calm;somnolent.iv access intact;patent.iv fluids infusing.general status stable.respiratory status stable. pt.capable to reposition self.call light/telephone w/in reach of the pt.pt's has arrived;present.
--- NOTE | 2019-01-08 02:30 | NUR ---
pt.has removed the iv access.i have changed the sheets/pillow cases.to re-established the iv access.
[2019-01-08 02:56] VITALS: BP_SYST 96
--- NOTE | 2019-01-08 04:00 | NUR ---
pt.assessed.pt.presents quiescent affect;calm,somnolent.general status stable.respiratory status stable;unlabored.pt.capable to reposition self.call light/telephone w/in the reach of the pt. @bedside.
[2019-01-08] MEDS: D5NS 1,000 ML IV SCH ×3 (06:16→20:34)
--- NOTE | 2019-01-08 06:22 | NUR ---
pt assessed.pt,.presents quiescent affect;calm,somnolent.pt.to submit to egd;01/08/19.consent signed.pt.has remained diet status;npo. pt.capable to reposition self.general status stable.respiratory status stable.call light/telephone w/in the reach of the pt.
--- NOTE | 2019-01-08 08:00 | NUR ---
OPENING NOTE patient is resting in bed A&O x4, patient denies any acute distress or pain, patient states she is having acid reflux, breathing is even and unlabored on room air, IV to right AC 22g started by Migue ARITA, IVF infusing as ordered, educated patient on plan of care and call light system, will continue to monitor, safety precautions in place, at bedside, NPO status in place, call light within reach.
[2019-01-08 08:10] VITALS: BP_SYST 137
[2019-01-08] MEDS: LORazepam 2 MG/ML VIAL IVP PRN ×2 (08:16→18:22)
[2019-01-08] MEDS: PANTOPRAZOLE SODIUM 40 MG/VIAL (PROTONIX) IVP SCH ×2 (08:16→20:27)
--- NOTE | 2019-01-08 09:25 | NUR ---
Paged Dr. Gonzales for EGD schedule
[2019-01-08] MEDS: MORPHINE 4 MG/ML INJ. SYRINGE IVP PRN ×3 (09:46→20:31)
--- NOTE | 2019-01-08 10:45 | NUR ---
NOTES patient is resting in bed with eyes closed, pain is controlled at this time, no other acute distress noted, breathing is even and unlabored on room air, at bedside, will continue to monitor, safety precautions in place, call light within reach.
--- NOTE | 2019-01-08 12:19 | NUR ---
PAGED DR TAM FOR EGD SCHEDULE S/W RAUDEL EXCHANGE
[2019-01-08 12:50] VITALS: BP_SYST 117
--- NOTE | 2019-01-08 14:15 | NUR ---
PATIENT OFF THE FLOOR FOR EGD.
[2019-01-08] MEDS ORDERED: fentaNYL CITRATE/PF 100 MCG/2 ML AMP ONE (14:18)
[2019-01-08] MEDS ORDERED: MIDAZOLAM HCL 5 MG/5 ML VIAL ONE ×2 (14:18→14:19)
[2019-01-08] MEDS ORDERED: SIMETHICONE 40 MG/0.6 ML ML ONE (14:19)
--- NOTE | 2019-01-08 15:38 | NUR ---
Back from GI lab via wheelchair EGD completed, alert/oriented, back to bed safety/fall precaution initiated verbalized understanding
[2019-01-08 15:45] VITALS: BP_SYST 119
--- NOTE | 2019-01-08 18:43 | NUR ---
CLOSING NOTE PATIENT IS RESTING IN BED, ANXIETY AND PAIN CONTROLLED AT THIS TIME, PATIENT DENIES ANY ACUTE DISTRESS, BREATHING IS EVEN AND UNLABORED ON ROOM AIR, IVF INFUSING ORDERED, ALL NEEDS WERE MET THROUGHOUT SHIFT, WILL ENDORSE REPORT TO ONCOMING NURSE, AT BEDSIDE, SAFETY PRECAUTIONS IN PLACE, CALL LIGHT WITHIN REACH.
--- NOTE | 2019-01-08 19:35 | NUR ---
OPENING NOTE RECEIVED CARE OF PT. PATIENT IS RESTING IN BED WITH A VISITOR AT BEDSIDE. NO S/S OF ACUTE ACUTE DISTRESS, BREATHING IS EVEN AND UNLABORED ON ROOM AIR. IVF INFUSING AT ORDERED RATE WITH NO SIGN OF INFILTRATION AT IV SITE. EDUCATED PT ON PLAN OF CARE AND USE OF CALL LIGHT. SAFETY PRECAUTIONS ARE IN PLACE: BED IS LOCKED IN LOWEST POSITION, CALL LIGHT IS WITH PT, SIDE RAILS UP X2, PERSONAL ITEMS WITHIN REACH. WILL MONITOR.
[2019-01-08 20:00] VITALS: BP_SYST 123
--- NOTE | 2019-01-08 20:31 | NUR ---
PAIN/MORPHINE PT REPORTING SEVERE ABDOMINAL PAIN. MORPHINE 4 MG IVP ADMINISTERED. MEDICATION ACTION AND POTENTIAL SIDE EFFECTS EXPLAINED TO PT. PT VERBALIZED UNDERSTANDING. SAFETY PRECAUTIONS ARE IN PLACE. WILL MONITOR.
--- NOTE | 2019-01-08 22:35 | NUR ---
RN ROUNDS: PT RESTING IN BED WITH EYES CLOSED, A VISITOR IS AT BEDSIDE. NO S/S OF ACUTE DISTRESS, BREATHING IS EVEN AND UNLABORED TO ROOM AIR WITH VISIBLE RISE AND FALL OF CHEST. IVF INFUSING AT ORDERED RATE. SAFETY PRECAUTIONS MAINTAINED. WILL MONITOR.
--- NOTE | 2019-01-09 | NUR ---
NPO PT NPO FOR PROCEDURE TOMORROW. PT EDUCATED REGARDING NPO STATUS. NPO CONE PLACED AT BEDSIDE. WILL MONITOR.
[2019-01-09 00:38] VITALS: BP_SYST 110
[2019-01-09] MEDS: LORazepam 2 MG/ML VIAL IVP PRN ×4 (00:38→21:57)
--- NOTE | 2019-01-09 00:38 | NUR ---
ANXIETY/ATIVAN PT REPORTING ANXIETY AND REQUESTING ATIVAN. ATIVAN 1 MG IVP ADMINISTERED TO PT. MEDICATION ACTION AND POTENTIAL SIDE EFFECTS EXPLAINED. PT VERBALIZED UNDERSTANDING. SAFETY MAINTAINED. WILL MONITOR.
--- NOTE | 2019-01-09 02:10 | NUR ---
RN ROUNDS: PT RESTING IN BED WITH EYES CLOSED. PT HAS FAMILY AT BEDSIDE. NO S/S OF ACUTE DISTRESS, BREATHING IS EVEN AND UNLABORED TO ROOM AIR WITH VISIBLE BILATERAL RISE AND FALL OF CHEST. IVF INFUSING AT ORDERED RATE WITH NO SIGN OF INFILTRATION AT IV SITE. SAFETY PRECAUTIONS REMAIN IN PLACE. WILL MONITOR.
[2019-01-09] MEDS: D5NS 1,000 ML IV SCH ×2 (03:05→20:11)
--- NOTE | 2019-01-09 04:04 | NUR ---
RN ROUNDS: PT RESTING IN BED, EYES ARE CLOSED, NO S/S OF ACUTE DISTRESS NOTED. VISIBLE RISE AND FALL OF CHEST BILATERALLY, BREATHING IS UNLABORED TO ROOM AIR. PT SEEMS TO BE COMFORTABLE AT THIS TIME. SAFETY PRECAUTIONS ARE IN PLACE. WILL MONITOR.
--- NOTE | 2019-01-09 06:52 | NUR ---
CLOSING NOTE PT AAOX4, RESTING IN BED. PT EDUCATED REGARDING HIDA PROCEDURE SCHEDULED FOR TODAY. NPO STATUS MAINTAINED. IVF ARE INFUSING AT ORDERED RATE. SAFETY PRECAUTIONS MAINTAINED. ALL NEEDS MET DURING SHIFT. WILL CONTINUE TO MONITOR UNTIL PT CARE IS ENDORSED TO DAY SHIFT RN.
--- NOTE | 2019-01-09 08:00 | NUR ---
initial notes rec patient awake alert with ivf infusing well on the l ac. no infiltration noted. resp easy and unlabored. no sob noted. bed to the lowest position and side rails up and locked. call light within reached. at bedside.
[2019-01-09] MEDS: PANTOPRAZOLE SODIUM 40 MG/VIAL (PROTONIX) IVP SCH ×2 (08:30→20:10)
--- NOTE | 2019-01-09 10:30 | NUR ---
rounds seen by dr dr cervantes and with orders. back from hida scan.stated if patient aman mechanical at dinner time can be d/c.
[2019-01-09] MEDS: MORPHINE 4 MG/ML INJ. SYRINGE IVP PRN ×2 (11:38→18:53)
--- NOTE | 2019-01-09 13:00 | NUR ---
rounds went for another picture of the hida scan via wheelchair and back. no sob noted.
[2019-01-09 14:33] VITALS: BP_SYST 123
--- NOTE | 2019-01-09 15:08 | NUR ---
Dietitian Recommendations * Recommend continuing full liquid diet * Consider advance diet if/when medically appropriate LP, RD Please refer to Nutrition Assessment for details. Addendum: 01/09/19 at [address] Amended: Links added.
--- NOTE | 2019-01-09 16:37 | NUR ---
Surgical consult called: for Dr. Gauthier, regarding cholecystitis, ordered by Dr. Kasper, spoke with Neena.
[2019-01-09 16:45] VITALS: BP_SYST 100
--- NOTE | 2019-01-09 18:48 | NUR ---
IV access IV site leaking, catheter removed, catheter intact, no bleeding, new IV catheter inserted to left wrist, 22G, flushes easily with blood return, patient tolerated well.
--- NOTE | 2019-01-09 19:00 | NUR ---
closing notes seen by dr bobo at bedside. no sob noted . bed to the lowest position and side rails up and locked. call light within reached.
--- NOTE | 2019-01-09 19:35 | NUR ---
OPENING NOTE RECEIVED CARE OF PT. PATIENT IS AAOX4, RESTING IN BED WITH AT BEDSIDE. NO S/S OF ACUTE ACUTE DISTRESS, BREATHING IS EVEN AND UNLABORED ON ROOM AIR. IVF INFUSING AT ORDERED RATE WITH NO SIGN OF INFILTRATION AT IV SITE. EDUCATED PT ON PLAN OF CARE AND USE OF CALL LIGHT. SAFETY PRECAUTIONS ARE IN PLACE: BED IS LOCKED IN LOWEST POSITION, CALL LIGHT IS WITH PT, SIDE RAILS UP X2, PERSONAL ITEMS WITHIN REACH. WILL MONITOR.
[2019-01-09 20:00] VITALS: BP_SYST 117
--- NOTE | 2019-01-09 20:30 | NUR ---
MD ROUNDS DR. EDDY AT NURSING STATION, INFORMED THAT PT WILL HAVE A LAPAROSCOPIC CHOLECYSTECTOMY TOMORROW.
--- NOTE | 2019-01-09 21:57 | NUR ---
ANXIETY/ATIVAN GIVEN PT REPORTING ANXIETY AND REQUESTING ATIVAN. ATIVAN 1 MG IVP ADMINISTERED TO PT. MEDICATION ACTION AND POTENTIAL SIDE EFFECTS EXPLAINED. PT VERBALIZED UNDERSTANDING. SAFETY MAINTAINED. WILL MONITOR.
--- NOTE | 2019-01-09 22:45 | NUR ---
IV RE-INSERTION: Complaining of pain to IV site. Restarted on RIGHT FOREARM. Successful after MULTIPLE attempts. Resumed current IVF of D5NS and regulated @ 125 per hour. Will observe for any signs of infiltration.
--- NOTE | 2019-01-10 | NUR ---
NPO PT NPO FOR PROCEDURE TOMORROW. PT EDUCATED REGARDING NPO STATUS. NPO CONE PLACED AT BEDSIDE. WILL MONITOR.
[2019-01-10 00:19] VITALS: BP_SYST 127
--- NOTE | 2019-01-10 00:30 | NUR ---
CONSENT SIGNED PT SIGNED CONSENT FOR SURGERY.
--- NOTE | 2019-01-10 02:05 | NUR ---
RN ROUNDS: PT RESTING IN BED WITH EYES CLOSED, IS AT BEDSIDE. NO S/S OF ACUTE DISTRESS, BREATHING IS EVEN AND UNLABORED TO ROOM AIR WITH VISIBLE RISE AND FALL OF CHEST. IVF INFUSING AT ORDERED RATE. SAFETY PRECAUTIONS MAINTAINED. WILL MONITOR.
[2019-01-10] MEDS: D5NS 1,000 ML IV SCH ×4 (04:01→23:32)
[2019-01-10] MEDS: LORazepam 2 MG/ML VIAL IVP PRN ×3 (04:06→23:42)
--- NOTE | 2019-01-10 04:06 | NUR ---
ANXIETY/ATIVAN PT REPORTING ANXIETY AND IS REQUESTING ATIVAN. ATIVAN 1 MG IVP ADMINISTERED TO PT ORDERED. PT REMINDED OF MEDICATION ACTION AND POTENTIAL SIDE EFFECTS, PT VERBALIZED UNDERSTANDING. SAFETY MAINTAINED. WILL MONITOR.
[2019-01-10 06:12] LABS: INR 1.1 (0.8-1.2); PROTHROMBIN TIME 11.1 SECS (9.5-12.5)
[2019-01-10 06:29] LABS: ALBUMIN 2.7 g/dL (3.4-4.8); CREATININE 0.68 mg/dL (0.55-1.30); POTASSIUM 3.3 mmol/L (3.5-5.1); TOTAL BILIRUBIN 0.3 mg/dL (0.0-1.0)
--- NOTE | 2019-01-10 06:47 | NUR ---
CLOSING NOTE PT AAOX4, RESTING IN BED. NO S/S OF ACUTE DISTRESS, BREATHING IS UNLABORED TO ROOM AIR. NPO STATUS MAINTAINED. IVF ARE INFUSING AT ORDERED RATE, NO SIGN OF INFILTRATION AT IV SITE. SAFETY PRECAUTIONS MAINTAINED. ALL NEEDS MET DURING SHIFT. WILL CONTINUE TO MONITOR UNTIL PT CARE IS ENDORSED TO DAY SHIFT RN.
[2019-01-10 07:30] LABS: BASOPHILS # (AUTO) 0.1 K/uL (0.0-0.2); BASOPHILS % (AUTO) 0.9 % (0.0-2.0); EOSINOPHILS # (AUTO) 0.1 K/uL (0.0-0.4); EOSINOPHILS % (AUTO) 1.2 % (0.0-4.0); HEMATOCRIT 36.2 % (36-48); HEMOGLOBIN 11.8 g/dL (12.0-16.0); LYMPHOCYTES # (AUTO) 1.2 K/uL (1.0-5.5); LYMPHOCYTES % (AUTO) 14.2 % (20.5-51.5); MEAN CORPUSCULAR HEMOGLOBIN 26 pg (27-31); MEAN CORPUSCULAR HGB CONC 33 % (32-36); MEAN CORPUSCULAR VOLUME 81 fL (79.0-98.0); MONOCYTES # (AUTO) 0.5 K/uL (0.0-1.0); MONOCYTES % (AUTO) 6.1 % (1.7-9.3); NEUTROPHILS # (AUTO) 6.8 K/uL (1.8-7.7); NEUTROPHILS % (AUTO) 77.6 % (40.0-70.0); PLATELET COUNT (AUTO) 257 K/uL (130-430); RED BLOOD CELL COUNT(AUTO) 4.48 MIL/uL (4.2-6.2); RED CELL DISTRIBUTION WIDTH 16.5 % (9.0-15.0); WHITE BLOOD COUNT (AUTO) 8.8 K/uL (4.8-10.8)
[2019-01-10 08:00] VITALS: BP_SYST 125
--- NOTE | 2019-01-10 08:08 | NUR ---
paged dr bay for k-level of 3.3, pt is npo for lap vs open tony.
[2019-01-10] MEDS: PANTOPRAZOLE SODIUM 40 MG/VIAL (PROTONIX) IVP SCH ×2 (08:28→20:47)
--- NOTE | 2019-01-10 09:06 | NUR ---
ATTENDING MD DR HORNE WAS CALLED RE: LOW K LEVEL. SPOKE TO FABI.
[2019-01-10] MEDS ORDERED: POTASSIUM CHLORIDE 20 MEQ in NS 250 ML IV ONE (09:45)
--- NOTE | 2019-01-10 12:13 | NUR ---
pt given chg bath in preparation for surgery.
--- NOTE | 2019-01-10 12:34 | NUR ---
pt in bed, resting comfortably, family at bedside.
[2019-01-10 13:08] VITALS: BP_SYST 133
[2019-01-10] MEDS: MORPHINE 4 MG/ML INJ. SYRINGE IVP PRN ×2 (14:04→20:48)
--- NOTE | 2019-01-10 14:05 | NUR ---
pt given pain med. family at bedside. informed pt that surgery unable to give me exact time for surgery.
[2019-01-10 14:12] VITALS: BP_SYST 133
[2019-01-10] MEDS ORDERED: ONDANSETRON HCL 4 MG/2 ML VIAL IVP PRN (15:30)
[2019-01-10] MEDS ORDERED: fentaNYL CITRATE/PF 100 MCG/2 ML AMP IVP PRN ×2 (15:30)
[2019-01-10] MEDS: DIPHENHYDRAMINE INJ 50 MG/ML VIAL IVP SCH ×2 (16:00→23:31)
--- NOTE | 2019-01-10 16:00 | NUR ---
pt taken by or tech nurses for surgery.
[2019-01-10] MEDS: AZTREONAM 1 GM in NS 50 ML IV SCH (16:30)
[2019-01-10 17:09] VITALS: BP_SYST 118
--- NOTE | 2019-01-10 17:30 | NUR ---
D/C Patient Patient given medication reconciliation form and D/C instructions. Exit Care provided. Patient verbalized understanding. MD discussed with patient the results and treatment provided. Ambulatory with steady gait for discharge to home. Patient in stable condition, ID band removed. IV catheter removed, intact and dressing applied, no active bleeding. Patient told to check with her pharmacy for new Rx. Patient educated on pain management. All belongings sent with patient. Pt on stable condition on discharged. Pt's family drove pt home. Addendum: 01/10/19 at 1943 by Robles Noel RN PLEASE DISREGARD THIS PATIENT NOTE: THIS BELONGS TO ANOTHER PATIENT.
[2019-01-10] MEDS: hydrALAZINE HCL 20 MG/ML VIAL ONE ×2 (18:05→18:50)
[2019-01-10] MEDS ORDERED: fentaNYL CITRATE/PF 100 MCG/2 ML AMP ONE (18:38)
--- NOTE | 2019-01-10 19:30 | NUR ---
Opening notes Received report. Patient resting in bed. Vital signs are stable. Patient is complaining of pain. PACU nurse has already given pain medications. Incision sites are clean, dry and intact. IVF are infusing. family is at the bedside. Call light with the patient. Safety precautions in place.
--- NOTE | 2019-01-10 19:43 | NUR ---
CLOSING NOTES, PT CAME BACK FROM [facility] AT AROUND [facility] , PT'S VITALS WNL, NO FEVER. C/O PAIN. PAIN MED WAS GIVEN IN PACU PER REPORT. . ENDORSED TO NIGHT LYLA HERNÁNDEZ.
[2019-01-10 20:00] VITALS: BP_SYST 121
--- NOTE | 2019-01-10 21:02 | NUR ---
Medications scheduled and prn pain medications given. Educated the action and side effects of medications. Patient verbalized understanding and tolerated well. No signs of allergic reaction noted. No other needs. Call light with the patient. Safety precautions in place.
--- NOTE | 2019-01-10 22:45 | NUR ---
Post op vitals refused. Initial and current vital signs are stable. No signs of distress noted. Breathing even and unlabored.
[2019-01-11] MEDS: AZTREONAM 1 GM in NS 50 ML IV SCH ×3 (00:07→16:21)
--- NOTE | 2019-01-11 00:49 | NUR ---
Antibiotics was started 30 minutes after benadryl was administered. Educated the action and side effects of medication. No signs of allergic reaction noted. Will continue to monitor.
[2019-01-11] MEDS: MORPHINE 4 MG/ML INJ. SYRINGE IVP PRN ×5 (01:54→22:37)
--- NOTE | 2019-01-11 03:00 | NUR ---
Resting Patient resting in bed. No signs of distress noted. Breathing even and unlabored. Provided patient with jello. No other needs. Call light with the patient. Safety precautions in place.
[2019-01-11 03:32] VITALS: BP_SYST 115
--- NOTE | 2019-01-11 04:45 | NUR ---
Sleeping No signs of distress noted. Breathing even and unlabored. IVF infusing well. Call light with the patient. Safety precautions in place.
[2019-01-11] MEDS: D5NS 1,000 ML IV SCH (06:16)
[2019-01-11] MEDS: LORazepam 2 MG/ML VIAL IVP PRN ×3 (06:46→21:32)
[2019-01-11] MEDS: LEVOTHYROXINE SODIUM 0.075 MG TABLET PO SCH (06:46)
--- NOTE | 2019-01-11 06:53 | NUR ---
Closing notes Patient complaining of anxiety. PRN anxiety medication given. Educated the action and side effects of medications. Patient verbalized understanding and tolerated well. No signs of allergic reaction. Informed patient to use incentive spirometer throughout the day and walk as much as tolerated. Patient verbalized understanding. All needs met throughout the shift. call light with the patient. Safety precautions in place. will endorse care to day shift RN.
--- NOTE | 2019-01-11 07:15 | NUR ---
report received at the bedside. patient aaox 4. lungs bilaterally clear. verbalized passing gas a lot. dressing x 3 on the abdominal areas. dry/intact. no bleeding noted. has iv access on the rt hand #20. w/D5NS at 125cc/hr infusing on well. bed in low position, alarmed and locked. call lights within reach. instructed to call for assistance.
--- NOTE | 2019-01-11 07:50 | NUR ---
morphine 4 mg iv given.
[2019-01-11 07:52] VITALS: BP_SYST 138
[2019-01-11] MEDS: DIPHENHYDRAMINE INJ 50 MG/ML VIAL IVP SCH (07:57)
--- NOTE | 2019-01-11 08:45 | NUR ---
azactam iv antibiotic given.
--- NOTE | 2019-01-11 09:00 | NUR ---
due medication given.
[2019-01-11] MEDS: PANTOPRAZOLE SODIUM 40 MG/VIAL (PROTONIX) IVP SCH ×2 (09:39→20:33)
--- NOTE | 2019-01-11 10:00 | NUR ---
seen by dr bay and order to have full liquid at this time.
--- NOTE | 2019-01-11 10:26 | NUR ---
stable at this time. watching tv.
--- NOTE | 2019-01-11 12:30 | NUR ---
tolerating clear liquids po.
[2019-01-11 12:39] VITALS: BP_SYST 132
[2019-01-11] MEDS: ONDANSETRON HCL 4 MG/2 ML VIAL IVP PRN (13:46)
--- NOTE | 2019-01-11 13:55 | NUR ---
Tolerating full liquid , no nausea/vomiting passing gas , bowel sound positive , pain is in the incision 10/10 ,dressing dry/clean due pain meds given slowly; Dr. Dumont informed regarding patient progress , IV fluid discontinued, fall safety/precaution initiated , verbalized understanding.
[2019-01-11] MEDS ORDERED: DIPHENHYDRAMINE INJ 50 MG/ML VIAL IVP ONE (16:00)
[2019-01-11 16:35] VITALS: BP_SYST 129
--- NOTE | 2019-01-11 17:00 | NUR ---
Premedicate patient with Benadryl prior to Azactam infusion , no adverse reaction .
--- NOTE | 2019-01-11 17:30 | NUR ---
Mobility Ambulate to hallway with steady gait accompanied by the , with mild abdominal incision pain tolerable as verbalized.
[2019-01-11] MEDS ORDERED: POTASSIUM CHLORIDE 20 MEQ TAB.PRT.SR PO ONE (19:15)
--- NOTE | 2019-01-11 19:15 | NUR ---
initial notes: pt is awake,alert,oriented x 4. still complain of pain9/10 after pain mediaction. explained give more time for medication to work. stable. iv lock to her right hand gauge 20- intact and patent. pt has 4 incision to her abdomen s/p lap tony, covered with steri strips clean dry and intact. pt is ambulatory. pt stated that she can take shower per ok by dr. bobo. explained to pt plan of care. safety, to use call light. pt verbalized understanding. needs attended call light in rails up. low bed position, at bedside. will follow u[p.
[2019-01-11 19:51] VITALS: BP_SYST 121
--- NOTE | 2019-01-11 20:30 | NUR ---
pt is having shower assisted by her , ty.
[2019-01-11] MEDS: DOCUSATE SODIUM 100 MG CAPSULE PO SCH (20:33)
--- NOTE | 2019-01-11 22:05 | NUR ---
pt is asking for pain mediation, told pt that her morphine is not due til 2229. pt willing to wait. explained the side effects. pt verbalized understanding. stable. needs attended. call light in reach. will follow-up.
--- NOTE | 2019-01-12 01:15 | NUR ---
pt complain that she is nauseated and had pain. explained to her zofran is available, but moprhine is due until 230 am. pt understanding. stable. not distress. needs attended. will given zofran.
[2019-01-12] MEDS: ONDANSETRON HCL 4 MG/2 ML VIAL IVP PRN (01:22)
[2019-01-12 01:51] VITALS: BP_SYST 128
--- NOTE | 2019-01-12 03:00 | NUR ---
pt call for pain medication, stable. remind about pain medication side effects. pt verbalizd understanding. call light in reach. side rails up. will follow-up.
[2019-01-12] MEDS: MORPHINE 4 MG/ML INJ. SYRINGE IVP PRN ×3 (03:12→11:50)
--- NOTE | 2019-01-12 04:58 | NUR ---
pt wakes up and call for pain medication, stable. no sob. explain to pt that pain medication is no due. pt willing to wait. needs attended. call light in reach. will follow-up.
--- NOTE | 2019-01-12 06:06 | NUR ---
sleeping, not distress. stable. no sob. call light in reach. at bedside. will follow-up.
[2019-01-12] MEDS: LEVOTHYROXINE SODIUM 0.075 MG TABLET PO SCH (06:42)
[2019-01-12 06:53] LABS: ALBUMIN 2.8 g/dL (3.4-4.8); CALCIUM 8.2 mg/dL (8.4-11.0); CREATININE 0.84 mg/dL (0.55-1.30); POTASSIUM 3.4 mmol/L (3.5-5.1); TOTAL BILIRUBIN 0.3 mg/dL (0.0-1.0)
--- NOTE | 2019-01-12 07:25 | NUR ---
closing: pt is resting, wakes up. no pain, not distress. iv lock intact and patent. needs attended the whole shift. at bedside. sbar report given to am rn.
--- NOTE | 2019-01-12 07:58 | NUR ---
Opening Note Report received from [facility] shift nurse. Patient is currently resting in bed. Abd incisions x 4 are dry and intact covered with steri strips. IV is on the right hand 20g, Sl. No signs of acute distress at the moment. Call light is within reach and bed is in the lowest position. Will continue to monitor.
[2019-01-12 08:00] VITALS: BP_SYST 122
[2019-01-12] MEDS: DOCUSATE SODIUM 100 MG CAPSULE PO SCH (08:33)
[2019-01-12] MEDS: LORazepam 2 MG/ML VIAL IVP PRN (08:33)
[2019-01-12] MEDS: PANTOPRAZOLE SODIUM 40 MG/VIAL (PROTONIX) IVP SCH (08:33)
--- NOTE | 2019-01-12 10:03 | NUR ---
MD rounds Dr. Dumont examined the patient at the bedside. stated that the patient may be dc'd home.
[2019-01-12] MEDS ORDERED: POTASSIUM CHLORIDE 20 MEQ TAB.PRT.SR PO ONE ×2 (10:30→11:45)
--- NOTE | 2019-01-12 12:03 | NUR ---
Rounds patient is currently resting in bed. Tolerating her diet well.
[2019-01-12 12:46] VITALS: BP_SYST 111
[2019-01-12 12:48] VITALS: BP_SYST 122
--- NOTE | 2019-01-12 13:40 | NUR ---
MD rounds Dr. Kwok examined the patient at the bedside. stated that patient may be dc'd home.
--- NOTE | 2019-01-12 14:10 | NUR ---
Transition of Care Note Patient given medication reconciliation form and D/C instructions. Exit Care provided. Patient verbalized understanding. MD discussed with patient the results and treatment provided. Ambulatory with steady gait for discharge to home. Patient in stable condition, ID band removed. IV catheter removed, intact and dressing applied, no active bleeding. Patient educated on pain management. All belongings sent with patient.
== END 2019-01-12 14:10 | disposition home or self-care (01) | DRG 263 ==
LOC: SED 08:03 → SMU 12:27
PROVIDERS: ADMIT Internal Medicine Hospice and Palliative Medicine; ATTEND Internal Medicine Hospice and Palliative Medicine
PROC: 0DB68ZX Excision of Stomach, Via Natural or Artificial Opening Endoscopic, Diagnostic (ICD-10-PCS; 2019-01-08)
PROC: 0DB98ZX Excision of Duodenum, Via Natural or Artificial Opening Endoscopic, Diagnostic (ICD-10-PCS; principal; 2019-01-08 14:00)
PROC: 0FT44ZZ Resection of Gallbladder, Percutaneous Endoscopic Approach (ICD-10-PCS; 2019-01-10)
DX: K82.8 Other specified diseases of gallbladder (principal); E44.1 Mild protein-calorie malnutrition; E66.01 Morbid (severe) obesity due to excess calories; K81.1 Chronic cholecystitis; G89.29 Other chronic pain; K66.0 Peritoneal adhesions (postprocedural) (postinfection); F31.9 Bipolar disorder, unspecified; E87.6 Hypokalemia; Z79.891 Long term (current) use of opiate analgesic; Z88.1 Allergy status to other antibiotic agents; Z88.0 Allergy status to penicillin; Z88.2 Allergy status to sulfonamides; Z88.8 Allergy status to other drugs, medicaments and biological substances; Z79.899 Other long term (current) drug therapy; Z90.710 Acquired absence of both cervix and uterus; Z68.41 Body mass index [BMI] 40.0-44.9, adult
CPT/HCPCS: 36415; 43239; 78226; 80053; 80307; 81000-TC; 83605; 83690-TC; 84702-TC; 85025; 85610-TC; 85730-TC; 87081; 88304; 88305; 88312; 88313; 93005; 94010; 96361; 96374; 96375; 96376; 99285; A9537; C1727; C9113; J0360; J1200; J1630; J2060; J2250; J2270; J2405; J3010; J3480; J3490; J7030; J7042; J7050

== ENCOUNTER 2019-01-13 00:49 | Emergency (ER) | payer MEDICAID ==
[~2019-01-13] VITALS: Ht 154.9 cm; Wt 103.0 kg
[~2019-01-13 00:49] MED LIST changes: -GABA-533 PO; -HYDR-4100 PO; +HYDR2TAB4 PO; -LORA-673 PO; -LUBI24CA5 PO; -METH500T PO; -PARO-63 PO
[2019-01-13 01:20] VITALS: BP_SYST 124
[2019-01-13] MEDS ORDERED: MORPHINE 4 MG/ML INJ. SYRINGE IVP ONE (01:45)
[2019-01-13 03:17] VITALS: BP_SYST 124
== END 2019-01-13 03:17 | disposition home or self-care (01) ==
LOC: SED 00:49
DX: G89.18 Other acute postprocedural pain (principal); Z90.49 Acquired absence of other specified parts of digestive tract; F41.9 Anxiety disorder, unspecified; Z79.899 Other long term (current) drug therapy; Z88.2 Allergy status to sulfonamides; Z88.1 Allergy status to other antibiotic agents; Z91.018 Allergy to other foods; W19.XXXA Unspecified fall, initial encounter; Y93.89 Activity, other specified; Y92.89 Other specified places as the place of occurrence of the external cause; Y99.8 Other external cause status
CPT/HCPCS: 74021; 96374; 99283; J2270

== ENCOUNTER 2019-01-15 11:01 | Emergency (ER) | payer MEDICAID ==
[~2019-01-15] VITALS: Ht 154.9 cm; Wt 102.1 kg
[2019-01-15 11:11] VITALS: BP_SYST 113
[2019-01-15] MEDS ORDERED: MORPHINE 4 MG/ML INJ. SYRINGE IM ONE ×2 (12:30→13:15)
[2019-01-15] MEDS ORDERED: MORPHINE 4 MG/ML INJ. SYRINGE IVP ONE (13:00)
[2019-01-15] MEDS ORDERED: ONDANSETRON HCL 4 MG/2 ML VIAL IVP ONE (13:00)
[2019-01-15] MEDS ORDERED: ONDANSETRON 4 MG ODT TAB PO ONE (13:15)
[2019-01-15] MEDS ORDERED: KETOROLAC TROMETHAMINE 30 MG VIAL IM ONE (13:30)
[2019-01-15 13:39] VITALS: BP_SYST 113
[2019-01-16] MEDS ORDERED: PREG75CA PO (21:49)
[2019-01-16] MEDS ORDERED: CYM30 PO (21:49)
== END 2019-01-15 13:39 | disposition home or self-care (01) ==
LOC: SED 11:01
DX: S50.11XA Contusion of right forearm, initial encounter (principal); R10.11 Right upper quadrant pain; E03.9 Hypothyroidism, unspecified; F32.9 Major depressive disorder, single episode, unspecified; F41.9 Anxiety disorder, unspecified; Z85.850 Personal history of malignant neoplasm of thyroid; Z79.899 Other long term (current) drug therapy; Z88.0 Allergy status to penicillin; Z88.1 Allergy status to other antibiotic agents; Z88.2 Allergy status to sulfonamides; Z88.6 Allergy status to analgesic agent; Z91.018 Allergy to other foods; Z88.8 Allergy status to other drugs, medicaments and biological substances; W01.0XXA Fall on same level from slipping, tripping and stumbling without subsequent striking against object, initial encounter; Y93.89 Activity, other specified; Y92.89 Other specified places as the place of occurrence of the external cause; Y99.8 Other external cause status
CPT/HCPCS: 73090; 96372; 99283; J1885; J2270; Q0162

== ENCOUNTER 2019-01-16 20:07 | Inpatient (IN) | payer MEDICAID ==
[~2019-01-16] VITALS: Ht 154.9 cm; Wt 106.1 kg
[2019-01-16 20:23] VITALS: BP_SYST 159
--- NOTE | 2019-01-16 20:28 | NUR ---
Patient to ER bed 4 to gown for evaluation. Side rails up. Report given to Margarito ARITA.
--- NOTE | 2019-01-16 20:30 | NUR ---
AWAKE, ALERT, ORIENTED X4. PT STATES THAT SHE HAD A GALL BLADDER SURGERY LAST 01/10/19. STATES THAT SINCE THIS MORNING SHE NOTICED SOME BUMPS, PIMPLES AND REDNESS ON THE INSERTION SITE OF THE LAPAROSCOPY. C/O PAIN 9/10 IN PAIN SCALE.
--- NOTE | 2019-01-16 20:35 | NUR ---
ER at bedside examining patient.
--- NOTE | 2019-01-16 21:20 | NUR ---
ABLE TO AMBULATE TO TOILET TO URINATE.
[2019-01-16] MEDS ORDERED: PREG75CA PO (21:49)
[2019-01-16] MEDS ORDERED: CYM30 PO (21:49)
[2019-01-16 22:32] LABS: BASOPHILS # (AUTO) 0.1 K/uL (0.0-0.2); BASOPHILS % (AUTO) 1.2 % (0.0-2.0); CALCIUM 8.6 mg/dL (8.4-11.0); CREATININE 0.78 mg/dL (0.55-1.30); EOSINOPHILS # (AUTO) 0.2 K/uL (0.0-0.4); EOSINOPHILS % (AUTO) 2.4 % (0.0-4.0); HEMATOCRIT 33.1 % (36-48); HEMOGLOBIN 10.7 g/dL (12.0-16.0); LYMPHOCYTES # (AUTO) 1.8 K/uL (1.0-5.5); LYMPHOCYTES % (AUTO) 18.2 % (20.5-51.5); MEAN CORPUSCULAR HEMOGLOBIN 27 pg (27-31); MEAN CORPUSCULAR HGB CONC 32 % (32-36); MEAN CORPUSCULAR VOLUME 82 fL (79.0-98.0); MONOCYTES # (AUTO) 0.6 K/uL (0.0-1.0); MONOCYTES % (AUTO) 6.1 % (1.7-9.3); NEUTROPHILS # (AUTO) 6.9 K/uL (1.8-7.7); NEUTROPHILS % (AUTO) 72.1 % (40.0-70.0); PLATELET COUNT (AUTO) 241 K/uL (130-430); POTASSIUM 3.7 mmol/L (3.5-5.1); RED BLOOD CELL COUNT(AUTO) 4.05 MIL/uL (4.2-6.2); RED CELL DISTRIBUTION WIDTH 16.7 % (9.0-15.0); WHITE BLOOD COUNT (AUTO) 9.6 K/uL (4.8-10.8)
[2019-01-16 22:38] LABS: ALBUMIN 2.8 g/dL (3.4-4.8); TOTAL BILIRUBIN 0.2 mg/dL (0.0-1.0)
--- NOTE | 2019-01-16 22:51 | NUR ---
Patient will be admitted to care of DR ESCALANTE. Admitted to unit. Will go to room . Belongings list completed. Summary report printed. Report GIVEN TO KRIS ARITA.
--- NOTE | 2019-01-16 22:58 | NUR ---
ADMISSION: The patient, CATINA VELAZQUEZ, 43 y/o, F admitted by AMADO ESCALANTE MD with diagnosis of abd wall infection, was given written information regarding hospital policies, unit procedures and contact persons.
[2019-01-16 23:05] VITALS: BP_SYST 118
--- NOTE | 2019-01-16 23:05 | NUR ---
ROUNDS PATIENT RESTING COMFORTABLY IN BED, NOT IN DISTRESS, VITALS STABLE. CLAIMED TO HAVE ABDOMINAL PAIN AT THIS TIME. ASSESSMENT DONE AND DOCUMENTED. SEE FLOWSHEET. PLAN OF CARE DISCUSSED AND PATIENT VERBALIZED UNDERSTANDING. ORIENTED TO HER ROOM, PHONE AND CALL LIGHT . NEEDS ATTENDED TO. SAFETY AND FALL PRECAUTION MEASURES IN PLACED. CALL LIGHT PLACED WITHIN REACH.
--- NOTE | 2019-01-16 23:25 | NUR ---
Paged Dr. Ventura.
--- NOTE | 2019-01-16 23:30 | NUR ---
DR. ESCALANTE CALLED AND TALKED TO DR. ESCALANTE, PATIENT WANTS MORPHINE IV SINCE [facility]CO WILL NOT BE WORKING ON HER. NO NEW ORDER GIVEN, WILL NOT GIVE ANY IV PAIN MEDICATION. WILL CONTINUE TO MONITOR.
[2019-01-17] VITALS (7 sets, daily range): BP systolic 101–133
[2019-01-17] MEDS: HYDROcodone/ACETAMIN 5-325 MG TAB (NORCO/ VICODIN) PO PRN ×3 (00:01→20:38)
[2019-01-17] MEDS: ONDANSETRON HCL 4 MG/2 ML VIAL IVP PRN ×3 (00:01→20:38)
--- NOTE | 2019-01-17 02:13 | NUR ---
ROUNDS PATIENT ASLEEP, RESPIRATIONS EVEN AND UNLABORED, NO SIGNS OF ANY PAIN AND DISCOMFORT NOTED. WILL CONTINUE TO MONITOR.
--- NOTE | 2019-01-17 04:12 | NUR ---
PATIENT RESTING: Patient resting quietly. No acute distress noted. Vital signs within normal range.
--- NOTE | 2019-01-17 06:26 | NUR ---
CLOSING NOTES PATIENT AWAKE, VITALS STABLE, NO COMPLAINTS AT THIS TIME. ALL NEEDS ATTENDED TO. SAFETY MEASURES MAINTAINED. CALL LIGHT PLACED WITHIN REACH.
--- NOTE | 2019-01-17 07:55 | NUR ---
patient aaox 4. lungs bilaterally clear. no pain nor acute distress noted.
--- NOTE | 2019-01-17 10:00 | NUR ---
went to the bathroom. family at the bedside.
--- NOTE | 2019-01-17 11:35 | NUR ---
ID consult called: for Dr. Parker, regarding abdominal wall infection, ordered by Dr. Ventura, spoke with Ayana.
--- NOTE | 2019-01-17 11:45 | NUR ---
dr ugarte came and evaluate the patient.
[2019-01-17] MEDS ORDERED: *CUBICIN 4 MG/KG Q24H/PHARMACY XX PRN (12:00)
--- NOTE | 2019-01-17 13:14 | NUR ---
placed a arm board on the right hand for safety.
--- NOTE | 2019-01-17 13:49 | NUR ---
Dietitian Recommendations *Recommend continuing Low Fat diet per MD orders. Please see Nutritional Assessment for details. HUYEN, RD
[2019-01-17] MEDS ORDERED: DIPHENHYDRAMINE INJ 50 MG/ML VIAL IVP SCH (14:30)
--- NOTE | 2019-01-17 14:30 | NUR ---
dr cervantes see the patient and made orders.
--- NOTE | 2019-01-17 14:54 | NUR ---
dr cervantes came and see the patient. medication reconciliation done.
[2019-01-17] MEDS ORDERED: DIPHENHYDRAMINE INJ 50 MG/ML VIAL IVP ONE (15:00)
[2019-01-17] MEDS ORDERED: LevALBUTEROL HCL 1.25 MG/0.5 ML *CONC.* VIAL.NEB (XOPENEX CONC.) INH PRN (15:00)
--- NOTE | 2019-01-17 15:21 | NUR ---
benadryl 50 mg iv given before iv cubicin
[2019-01-17] MEDS: DAPTOmycin 400 MG in NS 50 ML IV SCH (15:52)
--- NOTE | 2019-01-17 15:52 | NUR ---
cubicin iv given at this time. after benadryl iv administration
--- NOTE | 2019-01-17 16:00 | NUR ---
assists on adls.
[2019-01-17] MEDS: MONTELUKAST 10 MG TABLET PO SCH (18:08)
--- NOTE | 2019-01-17 18:48 | NUR ---
eat dinner good. no complained made so far
--- NOTE | 2019-01-17 19:25 | NUR ---
Opening notes Received report. Patient resting in bed. No signs of distress noted. Patient complains of pain and nausea. Will medication. Breathing even and unlabored. IV patent and intact, saline locked. No other needs. Call light with the patient. Safety precautions in place.
--- NOTE | 2019-01-17 19:30 | NUR ---
endorsed to incoming nurse Victorina ARITA
[2019-01-17] MEDS: PREGABALIN 75 MG CAPSULE (LYRICA) PO SCH (20:38)
--- NOTE | 2019-01-17 21:00 | NUR ---
New IV inserted/Medications New IV inserted to R hand 24. Patient tolerated well. Medications scheduled and prn given. Educated the action and side effects of medications. Patient verbalized understanding and tolerated well. No signs of allergic reaction noted. Call light with the patient. Safety precautions in place.
--- NOTE | 2019-01-17 23:00 | NUR ---
Resting Patient resting in bed. Watching TV. No signs of distress noted. Breathing even and unlabored. Call light with the patient. Safety precautions in place.
--- NOTE | 2019-01-18 02:00 | NUR ---
Sleeping Provided patient with warm blanked. No signs of distress noted. Breathing even and unlabored. Call light with the patient. Safety precautions in place.
[2019-01-18] MEDS: HYDROcodone/ACETAMIN 5-325 MG TAB (NORCO/ VICODIN) PO PRN ×2 (02:57→11:23)
--- NOTE | 2019-01-18 04:00 | NUR ---
Sleeping No signs of distress noted. Breathing even and unlabored. Call light with the patient. Safety precautions in place. at bedside.
[2019-01-18] MEDS: LEVOTHYROXINE SODIUM 0.075 MG TABLET PO SCH (06:05)
[2019-01-18] MEDS: ONDANSETRON HCL 4 MG/2 ML VIAL IVP PRN ×2 (06:10→11:21)
--- NOTE | 2019-01-18 07:00 | NUR ---
Closing notes Patient resting in bed. PRN nausea medication given for nausea. No adverse effects noted. IV patent and intact, saline locked. All needs met throughout the shift. Call light with the patient. safety precautions in place. Will endorse care to day shift RN.
--- NOTE | 2019-01-18 07:12 | NUR ---
report received at the bedside. patient aaox 4. lungs clear bilaterally. has new iv access on the rt hand #24. saline lock. ambulatory. bed in low position, alarmed and locked. call lights within reach. call for any assistance.
[2019-01-18 08:01] VITALS: BP_SYST 98
--- NOTE | 2019-01-18 08:07 | NUR ---
patient has eaten breakfast good. no pain nor distress. noted.
[2019-01-18] MEDS: DULoxetine HCL 30 MG CAPSULE.DR (CYMBALTA) PO SCH (08:14)
[2019-01-18] MEDS: DULoxetine HCL 20 MG CAPSULE.DR PO SCH (08:14)
[2019-01-18] MEDS: PREGABALIN 75 MG CAPSULE (LYRICA) PO SCH ×2 (08:14→20:15)
--- NOTE | 2019-01-18 09:00 | NUR ---
due medication given as ordered.
--- NOTE | 2019-01-18 10:36 | NUR ---
patient resting and family at the bedside.
--- NOTE | 2019-01-18 11:23 | NUR ---
norco tablet po given. zofran 4 mg iv for nausea. made comfortable.
[2019-01-18 11:31] VITALS: BP_SYST 113
--- NOTE | 2019-01-18 13:10 | NUR ---
benadryl 50 mg iv given prior to Cubicin Iv antibiotic.
[2019-01-18] MEDS: DAPTOmycin 400 MG in NS 50 ML IV SCH (13:42)
[2019-01-18] MEDS ORDERED: DIPHENHYDRAMINE INJ 50 MG/ML VIAL IVP SCH (14:00)
[2019-01-18 15:32] VITALS: BP_SYST 98
--- NOTE | 2019-01-18 16:00 | NUR ---
resting. no pain nor acute distress noted.
[2019-01-18] MEDS: MONTELUKAST 10 MG TABLET PO SCH (17:43)
--- NOTE | 2019-01-18 17:50 | NUR ---
dr cervantes called by sarah for orders.
--- NOTE | 2019-01-18 18:14 | NUR ---
awaiting for dr cervantes to call for pain medication
--- NOTE | 2019-01-18 18:42 | NUR ---
toradol 15 mg iv given as ordered for pain
[2019-01-18] MEDS ORDERED: KETOROLAC TROMETHAMINE 15 MG VIAL IVP ONE (18:45)
[2019-01-18] MEDS ORDERED: KETOROLAC TROMETHAMINE 30 MG VIAL ONE (18:50)
--- NOTE | 2019-01-18 18:59 | NUR ---
closing notes: patient verbalized many thanks for taking care of me today. very much happy. all needs are met. still w/rt hand #24. saline lock. maintained safety precaution. bed in low position, alarmed and locked. call lights within reach. toradol 15 mg iv given x one 1842pm for abdominal pain. ambulatory. endorsed to incoming nurse
--- NOTE | 2019-01-18 19:37 | NUR ---
endorsed to incoming nurse Vidya ARITA
--- NOTE | 2019-01-18 20:15 | NUR ---
Opening notes Pt AAOx4, VSS afebrile. No s/s distress noted. Pt denies pain at this time. Mid abdomen and lower abdomen noted with erythema, but no drainage noted. Encouraged pt to call for assistance. Call light within reach. To monitor.
[2019-01-18 21:43] VITALS: BP_SYST 105
[2019-01-19 00:45] VITALS: BP_SYST 108
[2019-01-19] MEDS: KETOROLAC TROMETHAMINE 15 MG VIAL IVP PRN ×4 (00:50→18:56)
--- NOTE | 2019-01-19 00:50 | NUR ---
Pain Pt c/o abd sharp pain, medicated with Toradol 15mg IVP as needed. R. hand no s/s infiltration. Call light within reach. To monitor.
--- NOTE | 2019-01-19 02:15 | NUR ---
Rounds Pt asleep, no s/s distress noted. Call light within reach. To monitor.
--- NOTE | 2019-01-19 05:00 | NUR ---
Rounds Pt asleep, no s/s distress or discomfort noted. Call light within reach. To monitor.
[2019-01-19 06:19] LABS: CALCIUM 8.5 mg/dL (8.4-11.0); CREATININE 0.89 mg/dL (0.55-1.30); POTASSIUM 4.5 mmol/L (3.5-5.1)
[2019-01-19] MEDS: LEVOTHYROXINE SODIUM 0.075 MG TABLET PO SCH (06:41)
[2019-01-19] MEDS: ONDANSETRON HCL 4 MG/2 ML VIAL IVP PRN ×4 (06:41→23:07)
--- NOTE | 2019-01-19 07:15 | NUR ---
Closing notes Pt c/o abd pain. IV R hand clogged. AN restarted on L. wrist 22G flushes well with NS. Toradol 15mg IVP given as needed and Zofran 4mg IVP. All needs met throughout the night. CAll light within reach. Endorsed to AM nurse.
--- NOTE | 2019-01-19 07:23 | NUR ---
Opening Note received bedside SBAR report from physical therapy aide RN, patient resting in bed, no acute distress noted, respirations even and unlabored, educated patient on use of call light and asked to call for assistance, patient verbalized understanding, call light in reach, educated patient on use of bed alarm for patient safety, patient refusing bed alarm, bed in low and locked position.
[2019-01-19 08:00] VITALS: BP_SYST 113
[2019-01-19] MEDS: DULoxetine HCL 30 MG CAPSULE.DR (CYMBALTA) PO SCH (08:28)
[2019-01-19] MEDS: PREGABALIN 75 MG CAPSULE (LYRICA) PO SCH ×2 (08:28→21:52)
[2019-01-19] MEDS: DULoxetine HCL 20 MG CAPSULE.DR PO SCH (08:36)
--- NOTE | 2019-01-19 09:17 | NUR ---
RN Rounds patient resting in bed, no acute distress noted, patient reports pain is controlled, no additional needs at this time.
[2019-01-19] MEDS: DIPHENHYDRAMINE INJ 50 MG/ML VIAL IVP SCH (11:30)
--- NOTE | 2019-01-19 11:41 | NUR ---
Nausea/Medication patient complaint of nausea, patient requesting PRN medication for nausea, educated patient on use and side effects of zofran, patient verbalized understanding, tolerated medication administration well, no acute distress noted.
[2019-01-19 12:00] VITALS: BP_SYST 125
[2019-01-19] MEDS: DAPTOmycin 400 MG in NS 50 ML IV SCH (12:41)
--- NOTE | 2019-01-19 13:15 | NUR ---
RN Rounds patient resting in bed, no acute distress noted, patient reports pain is controlled at this time, no additional needs.
--- NOTE | 2019-01-19 15:20 | NUR ---
Ambulated to bathroom patient ambulated to bathroom, steady gait noted, voided x1, patient ambulated back to bed, patient resting in bed.
[2019-01-19 16:00] VITALS: BP_SYST 106
[2019-01-19] MEDS: HYDROcodone/ACETAMIN 5-325 MG TAB (NORCO/ VICODIN) PO PRN (16:42)
--- NOTE | 2019-01-19 16:55 | NUR ---
Nausea/Medication patient complaint of nausea, patient complaint of pain, educated patient on use and side effects of PRN norco and PRN zofran, patient verbalized understanding, tolerated medication administration well, no acute distress noted, patients at bedside.
[2019-01-19] MEDS: MONTELUKAST 10 MG TABLET PO SCH (17:58)
--- NOTE | 2019-01-19 18:17 | NUR ---
RN Rounds patient sitting up in bed eating dinner, tolerating well, patient reports nausea is controlled, no acute distress noted, patients at bedside.
--- NOTE | 2019-01-19 19:21 | NUR ---
Closing Note bedside SBAR report given to receiving RN, patient resting in bed, patient reports pain is controlled, no acute distress noted, patients at bedside, educated patient on use of call light and asked to call for assistance, patient verbalized understanding, call light in reach, educated patient on use of bed alarm for patient safety, patient refusing bed alarm, bed in low and locked position, care endorsed to welfare administrator RN.
[2019-01-19 20:00] VITALS: BP_SYST 112
--- NOTE | 2019-01-19 20:00 | NUR ---
Initial note: Received report from daysmacrina RN. Patient is awake in bed, no distress. Alert and oriented x4, tolerating room air. IV site to left wrist is patent and benign. Pain is at controlled level at this time, not requesting pain medication. Call light with patient. Safety and fall precautions in place. Will continue with plan of care.
--- NOTE | 2019-01-19 23:07 | NUR ---
Nausea: Patient complained feeling nauseous. Educated patient regarding Zofran indications and side effects, understanding verbalized. Medication administered as ordered. Call light with patient. Will continue to monitor.
[2019-01-20 00:22] VITALS: BP_SYST 103
[2019-01-20] MEDS: KETOROLAC TROMETHAMINE 15 MG VIAL IVP PRN ×4 (01:43→22:45)
--- NOTE | 2019-01-20 01:45 | NUR ---
Pain: Patient complaining of moderate abdominal pain. Toradol IVP administered via right AC IV site. Education provided regarding indications, side effects. Call light with patient. Safety, fall precautions in place. Will continue monitoring.
--- NOTE | 2019-01-20 04:04 | NUR ---
Rounds: Patient is resting in bed, no distress. Even, unlabored breathing on room air. Call light with patient. Will continue to monitor.
[2019-01-20] MEDS: LEVOTHYROXINE SODIUM 0.075 MG TABLET PO SCH (06:02)
--- NOTE | 2019-01-20 06:48 | NUR ---
Closing note: Patient is resting in bed, no distress. IV site to left wrist is patent and benign. All needs met. Call light is with patient. Safety and fall precautions observed. Hourly rounding performed throughout shift. Will endorse care to dayshift RN.
--- NOTE | 2019-01-20 07:08 | NUR ---
Opening Note received bedside SBAR report from data designer RN, patient resting in bed, no acute distress noted, patient reports pain is controlled, patients at bedside, educated patient on use of call light and asked to call for assistance, patient verbalized understanding, call light in reach, educated patient on use of bed alarm for patient safety, patient refusing bed alarm, bed in low and locked position, contact isolation precautions in place.
[2019-01-20 08:00] VITALS: BP_SYST 103
[2019-01-20] MEDS: PREGABALIN 75 MG CAPSULE (LYRICA) PO SCH ×2 (08:03→20:16)
[2019-01-20] MEDS: DULoxetine HCL 30 MG CAPSULE.DR (CYMBALTA) PO SCH (08:03)
[2019-01-20] MEDS: ONDANSETRON HCL 4 MG/2 ML VIAL IVP PRN ×4 (08:03→22:45)
[2019-01-20] MEDS: DULoxetine HCL 20 MG CAPSULE.DR PO SCH (08:03)
--- NOTE | 2019-01-20 09:29 | NUR ---
RN Rounds patient resting in bed, respirations even and unlabored on room air, no acute distress noted, patient reports pain and nausea are controlled, patients at bedside.
--- NOTE | 2019-01-20 11:45 | NUR ---
RN Rounds patient resting in bed, no acute distress noted, provided patient with towel, clean gown, and hygiene items, patient completed hygiene independently, no additional needs at this time.
[2019-01-20 12:00] VITALS: BP_SYST 127
[2019-01-20] MEDS: DIPHENHYDRAMINE INJ 50 MG/ML VIAL IVP SCH (12:41)
[2019-01-20] MEDS: DAPTOmycin 400 MG in NS 50 ML IV SCH (13:43)
--- NOTE | 2019-01-20 13:45 | NUR ---
RN Rounds patient resting in bed, respirations even and unlabored on room air, no acute distress noted, patient reports pain is controlled, patients at bedside.
--- NOTE | 2019-01-20 16:31 | NUR ---
Pain Management patient complain of pain, patient requesting PRN pain medication, educated patient on use and side effects of PRN toradol, patient verbalized understanding, tolerated medication administration well, no acute distress noted, patients at bedside.
[2019-01-20 16:32] VITALS: BP_SYST 100
[2019-01-20] MEDS: MONTELUKAST 10 MG TABLET PO SCH (17:23)
--- NOTE | 2019-01-20 17:51 | NUR ---
RN Rounds patient sitting up in bed eating dinner, tolerating well, patient reports nausea is controlled, patients at bedside.
--- NOTE | 2019-01-20 19:16 | NUR ---
Closing Note bedside SBAR report given to receiving RN, patient resting in bed, no acute distress noted, patients at bedside, educated patient on use of call light and asked to call for assistance, patient verbalized understanding, call light in reach, educated patient on use of bed alarm for patient safety, patient refusing bed alarm, bed in low and locked position, contact isolation precautions in place, care endorsed to nightclub manager RN.
--- NOTE | 2019-01-20 19:20 | NUR ---
Initial note: Received report from dayshift RN. Patient is awake in bed, complaining of abdominal pain, but no acute distress otherwise. Alert and oriented x4, tolerating room air. IV to left wrist is patent and benign. Patient's present at bedside. Contact isolation in place per Dr. Daly for MRSA of wound. Call light with patient. Safety and fall precautions in place. Will continue with plan of care.
[2019-01-20] MEDS: HYDROcodone/ACETAMIN 5-325 MG TAB (NORCO/ VICODIN) PO PRN (19:21)
--- NOTE | 2019-01-20 19:22 | NUR ---
Pain: Patient complained of abdominal pain. Administered [place] 5-325 as indicated. Patient was educated regarding indications and side effects of medication. Patient verbalized understanding. Call light with patient, will continue monitoring.
[2019-01-20 20:00] VITALS: BP_SYST 109
--- NOTE | 2019-01-20 21:05 | NUR ---
Rounds: Patient is awake in bed, no distress. Even and unlabored breathing on room air. Call light with patient. Safety, fall precautions in place. Will continue to monitor.
--- NOTE | 2019-01-20 22:47 | NUR ---
Pain/nausea: Patient complaining of moderate abdominal pain and nausea. Educated patient regarding Toradol IVP for pain and Zofran IVP for nausea. Medications both administered intravenously via left wrist IV site, no infiltration noted. Call light is with patient. Safety and fall precautions in place. Will continue to monitor.
--- NOTE | 2019-01-21 00:32 | NUR ---
Rounds: Patient is resting in bed, no distress noted. Even and unlabored breathing on room air. Call light with patient. Safety, fall, contact isolation precautions in place. Will continue monitoring.
[2019-01-21 00:58] VITALS: BP_SYST 103
--- NOTE | 2019-01-21 03:43 | NUR ---
Rounds: Patient is sleeping. Respirations are even, unlabored on room air. present at bedside. Call light with patient. Will continue to monitor.
[2019-01-21] MEDS: KETOROLAC TROMETHAMINE 15 MG VIAL IVP PRN ×2 (05:13→11:11)
[2019-01-21] MEDS: ONDANSETRON HCL 4 MG/2 ML VIAL IVP PRN ×2 (05:13→11:11)
[2019-01-21] MEDS: LEVOTHYROXINE SODIUM 0.075 MG TABLET PO SCH (06:42)
--- NOTE | 2019-01-21 06:48 | NUR ---
Closing note: Patient is awake in bed, no acute distress. Even and unlabored breathing on room air. No complaints of pain at this time. All needs met. Safety, fall, contact isolation precautions observed. Hourly rounding done throughout shift. Will endorse care to dayshift RN.
--- NOTE | 2019-01-21 07:30 | NUR ---
rn opening note Report was endorsed by night nurse. Patient is awake and alert, no signs of any distress, breathing is equal and non labored. Patient has no complaints at this time. Patient educated transportation supervisor light,call light is with patient. Patients spouse is at bed side. no other needs at this time. will continue to monitor.
[2019-01-21 07:49] VITALS: BP_SYST 105
[2019-01-21 08:00] VITALS: BP_SYST 105
[2019-01-21] MEDS: DULoxetine HCL 20 MG CAPSULE.DR PO SCH (08:38)
[2019-01-21] MEDS: PREGABALIN 75 MG CAPSULE (LYRICA) PO SCH (08:38)
[2019-01-21] MEDS: DULoxetine HCL 30 MG CAPSULE.DR (CYMBALTA) PO SCH (08:38)
--- NOTE | 2019-01-21 09:00 | NUR ---
rn rounding Patient is awake and alert, sitting up in bed no signs of any distress, breathing is equal and non labored. Patients spouse is at bed side. Patient has all safety precautions in place. will continue to monitor. no other needs at this time.
--- NOTE | 2019-01-21 11:17 | NUR ---
Pain medication/nausea medication Patient complains of pain and also states that she is having nausea and vomited one time. Medicated per order. Patient is awake and alert. Patient educated distillation operator light for assistance. Patient has call light with her. Patient spouse is at bed side. Patient has no other needs at this time. will continue to monitor.
[2019-01-21 11:26] VITALS: BP_SYST 117
[2019-01-21] MEDS: DIPHENHYDRAMINE INJ 50 MG/ML VIAL IVP SCH (12:23)
--- NOTE | 2019-01-21 12:27 | NUR ---
Medication Patients scheduled medication given as ordered. Patient is awake and alert educated on side effects and to use call light for assistance. Patient verbalized understanding. Patient has call light with her. Will continue to monitor. no other needs at this time.
[2019-01-21] MEDS: DAPTOmycin 400 MG in NS 50 ML IV SCH (13:38)
--- NOTE | 2019-01-21 13:40 | NUR ---
Medication Patients scheduled medication given as ordered. Patient pictures taken of wounds. Patient educated golf tournament consultant light for assistance. Call light is with patient. Patient has call light with her. States she is going to take a nap. Her sister will be here to pick her up for discharge.
--- NOTE | 2019-01-21 13:43 | NUR ---
DC Planning: Per dr Daly: the pt can be dc home today and to go to outpatient infusion ctr for IV cubicin x [address] Ventura made aware. >> CM call [facility] infusion [facility], [place] # [phone] opt#5, LVM to Kamryn, project control officer to return my call confirming the IV Cubicin set up, starting first dose tomorrow. The pt will be dc today per dr. Ventura order. >> Per pt: she aware of the outpatient IV abx infusion . She already spoke with dr. Daly this am.
[2019-01-21 14:33] VITALS: BP_SYST 117
[2019-01-21 14:53] VITALS: BP_SYST 97
--- NOTE | 2019-01-21 15:17 | NUR ---
discharge Patient's sister jen here to continuous pickling line pickler helper patient. Patient is awake and alert, no signs of any distress, breathing is equal and non labored. Patient has no complaints at this time. IV catheter to left wrist removed catheter intact gauze placed at insertion site. Patient educated on discharge paper work. Patient copy given to patient no further questions. will follow up with IV antibiotics at outside clinic. Patient refusing to be transferred VIA wheelchair to car states she wants to walk her self. ID band was removed. no other needs .
== END 2019-01-21 15:15 | disposition home or self-care (01) | DRG 383 ==
LOC: SED 20:07 → SMU 22:14
PROVIDERS: ADMIT Family Medicine; ATTEND Family Medicine
DX: L03.311 Cellulitis of abdominal wall (principal); Z68.41 Body mass index [BMI] 40.0-44.9, adult; L02.221 Furuncle of abdominal wall; L02.211 Cutaneous abscess of abdominal wall; B95.62 Methicillin resistant Staphylococcus aureus infection as the cause of diseases classified elsewhere; E03.9 Hypothyroidism, unspecified; F41.9 Anxiety disorder, unspecified; G89.29 Other chronic pain; M54.9 Dorsalgia, unspecified; F32.9 Major depressive disorder, single episode, unspecified; J45.909 Unspecified asthma, uncomplicated; E66.9 Obesity, unspecified; Z90.49 Acquired absence of other specified parts of digestive tract; Z88.2 Allergy status to sulfonamides; Z88.0 Allergy status to penicillin; Z88.1 Allergy status to other antibiotic agents; Z86.14 Personal history of Methicillin resistant Staphylococcus aureus infection; Z88.6 Allergy status to analgesic agent; Z91.018 Allergy to other foods; Z79.899 Other long term (current) drug therapy
CPT/HCPCS: 36415; 80048; 80053; 83605; 85025; 87040-TC; 87081; 99284; J0878; J1200; J1885; J2405; J7050

== ENCOUNTER 2019-03-03 15:24 | Inpatient (IN) | payer MEDICAID ==
[~2019-03-03] VITALS: Ht 154.9 cm; Wt 105.7 kg
[~2019-03-03 15:24] MED LIST changes: +CYM30 PO; -HYDR2TAB4 PO; +PREG75CA PO
[2019-03-03 15:32] VITALS: BP_SYST 14; BP_SYST 142
--- NOTE | 2019-03-03 15:32 | NUR ---
Patient to ER bed 7 to gown for evaluation. Side rails up. Assumed care.
--- NOTE | 2019-03-03 16:05 | NUR ---
Patient arrived via POV with spouse. Patient AAOX4, and ambulatory with limping gait. Patient c/c of spider bites x3 to right lateral leg. Patient states associated symptoms are mild abdominal pain, nausea, slight diarrhea, pain to right knee down. rate at 8/10. Patient states she first noticed the bites last night. Patient took PO benadryl last night with no relief. Patient applied alcohol topically. Motrin was taken for pain, approximately 1100, with no relief. Patient notes she has history of abscesses, and has allergies to almost antibiotics, she can only take IV abx, cubicin and she must take benadryl prior to administering. Will continue to follow up and monitor.
--- NOTE | 2019-03-03 16:07 | NUR ---
ER at bedside examining patient.
[2019-03-03] MEDS ORDERED: NACL 0.9% 1,000 ML IV ONE (16:15)
[2019-03-03 16:51] LABS: BASOPHILS % (AUTO) 0.4 % (0.0-2.0); EOSINOPHILS # (AUTO) 0.1 K/uL (0.0-0.4); EOSINOPHILS % (AUTO) 1.1 % (0.0-4.0); HEMATOCRIT 35.4 % (36-48); HEMOGLOBIN 11.5 g/dL (12.0-16.0); LYMPHOCYTES # (AUTO) 1.3 K/uL (1.0-5.5); LYMPHOCYTES % (AUTO) 14.3 % (20.5-51.5); MEAN CORPUSCULAR HEMOGLOBIN 27 pg (27-31); MEAN CORPUSCULAR HGB CONC 33 % (32-36); MEAN CORPUSCULAR VOLUME 82 fL (79.0-98.0); MONOCYTES # (AUTO) 0.5 K/uL (0.0-1.0); MONOCYTES % (AUTO) 5.7 % (1.7-9.3); NEUTROPHILS # (AUTO) 6.9 K/uL (1.8-7.7); NEUTROPHILS % (AUTO) 78.5 % (40.0-70.0); PLATELET COUNT (AUTO) 275 K/uL (130-430); RED BLOOD CELL COUNT(AUTO) 4.31 MIL/uL (4.2-6.2); RED CELL DISTRIBUTION WIDTH 17.4 % (9.0-15.0); WHITE BLOOD COUNT (AUTO) 8.8 K/uL (4.8-10.8)
--- NOTE | 2019-03-03 16:53 | NUR ---
Patient will be admitted to care of Dr. James. Admitted to Medsurg unit. Will go to room 119B. Belongings list completed. Summary report printed. Report will be given at bedside.
[2019-03-03 16:57] LABS: BILIRUBIN,URINE NEGATIVE (NEGATIVE); BLOOD, URINE NEGATIVE (NEGATIVE); CLARITY/URINE CLEAR (CLEAR); COLOR,URINE YELLOW (YELLOW); GLUCOSE,URINE NEGATIVE (NEGATIVE); KETONES,URINE NEGATIVE (NEGATIVE); LEUKOCYTE ESTERASE ,URINE NEGATIVE (NEGATIVE); NITRITE, URINE NEGATIVE (NEGATIVE); PROTEIN URINE NEGATIVE (NEGATIVE); UROBILINOGEN,URINE 0.2 (0.2-1.0)
[2019-03-03] MEDS ORDERED: FLUT1BLS3 INH (16:57)
[2019-03-03] MEDS ORDERED: LEVO125T PO (16:57)
[2019-03-03] MEDS ORDERED: PREG75CA PO (16:57)
[2019-03-03] MEDS ORDERED: TRAZ-218 PO (16:57)
[2019-03-03] MEDS ORDERED: SPIRIVA INH (16:57)
[2019-03-03] MEDS ORDERED: MONT10TA25 PO (16:57)
[2019-03-03] MEDS ORDERED: DULO60CA41 PO (16:57)
[2019-03-03 16:58] LABS: CALCIUM 8.5 mg/dL (8.4-11.0); CREATININE 0.8 mg/dL (0.55-1.30); POTASSIUM 3.6 mmol/L (3.5-5.1)
[2019-03-03 17:00] LABS: PROTHROMBIN TIME 10.1 SECS (9.5-12.5)
--- NOTE | 2019-03-03 17:01 | NUR ---
ADMISSION NOTE Received patient from ER via bunny, received report from CHRISTIANA ARITA. Patient admitted with diagnosis of CELLULITIS. Patient oriented to hospital routine, call light, toileting and safety-patient verbalized understanding.
--- NOTE | 2019-03-03 17:05 | NUR ---
CONSULTATION PAGED REASON FOR CONSULTATION:CELLULITIS, MULTIPLE ABX ALLERGIES WAS CONSULT CALLED?Y PERSON WHO WAS NOTIFIED:KIM CONSULTING PHYSICIAN:JASVIR MARIN ( AEROSPACE QUALITY ENGINEER) STAMPING PRESS OPERATOR SPECIALTY:INFECTIOUS DISEASE STAMPING PRESS OPERATOR PHONE NUMBER:[phone] REQUESTING PHYSICIAN:
[2019-03-03 17:11] VITALS: BP_SYST 144
[2019-03-03 17:13] LABS: ALBUMIN 3.4 g/dL (3.4-4.8); TOTAL BILIRUBIN 0.2 mg/dL (0.0-1.0)
[2019-03-03] MEDS: MONTELUKAST 10 MG TABLET PO SCH (17:13)
[2019-03-03] MEDS: DIPHENHYDRAMINE INJ 50 MG/ML VIAL IVP PRN (17:13)
[2019-03-03 17:15] VITALS: BP_SYST 134
[2019-03-03] MEDS: ALBUTEROL SULFATE 0.083% 2.5 MG/3 ML VIAL.NEB INH PRN (17:20)
[2019-03-03] MEDS ORDERED: MORPHINE SULFATE 15 MG TABLET.ER PO ONE (17:30)
--- NOTE | 2019-03-03 18:23 | NUR ---
end of shift: Needs attended. No change in assessment.
--- NOTE | 2019-03-03 19:10 | NUR ---
OPENING NOTES RECEIVED PATIENT IN BED AAO X4. BREATHING UNLABORED ON ROOM AIR. PLAN OF CARE REVIEWED WITH PATIENT. BE DIN LOWEST LOCKED POSITION. CALL LIGHT WITH IN REACH.
[2019-03-03 20:49] VITALS: BP_SYST 122
[2019-03-03] MEDS: PREGABALIN 75 MG CAPSULE (LYRICA) PO SCH (20:58)
[2019-03-03] MEDS: traZODone HCL 50 MG TABLET (DESYREL) PO SCH (20:58)
[2019-03-03] MEDS: NACL 0.9% 1,000 ML IV SCH (20:58)
--- NOTE | 2019-03-03 20:58 | NUR ---
MED PASS PATIENT DUE MEDICATIONS GIVEN. STARTED PATIENT ON IVF OF NS @ 100 ML/HR. IV LINE INTACT AND PATENT.
[2019-03-04] MEDS: DIPHENHYDRAMINE INJ 50 MG/ML VIAL IVP PRN ×4 (00:07→17:58)
--- NOTE | 2019-03-04 00:07 | NUR ---
ITCHING PATIENT MEDICATED WITH BENADRYL FOR C/O ITCHING TO RT LEG.
[2019-03-04 01:06] VITALS: BP_SYST 150; BP_SYST 99
[2019-03-04 02:11] LABS: HCG,QUAL RESULT NEGATIVE (NEGATIVE)
[2019-03-04 02:41] LABS: BARBITURATE, URINE NEGATIVE (NEG <=200); BENZODIAZEPINE, URINE NEGATIVE (NEG <=150); CANNABINOID, URINE NEGATIVE (NEG <=50); COCAINE, URINE NEGATIVE (NEG <=150); METHAMPHETAMINES SCREEN,URINE NEGATIVE (NEG <=500); OPIATE, URINE POSITIVE (NEG <=100); PHENCYCLIDINE SCREEN,URINE NEGATIVE (NEG <=25); UR TRICYCLIC ANTIDEPRESSANTS NEGATIVE (NEG <=300); URINE AMPHETAMINE NEGATIVE (NEG <=500); URINE METHADONE NEGATIVE (NEG <=200); URINE OXYCODONE SCREEN NEGATIVE (NEG <=100); URINE PROPOXYPHENE SCREEN NEGATIVE (NEG <=300)
--- NOTE | 2019-03-04 03:04 | NUR ---
ROUNDS PATIENT RESTING IN BED. BREATHING UNLABORED. IVF INFUSING. CALL LIGHT WITH IN REACH.
[2019-03-04 05:42] LABS: BASOPHILS % (AUTO) 0.5 % (0.0-2.0); EOSINOPHILS # (AUTO) 0.2 K/uL (0.0-0.4); HEMATOCRIT 31.2 % (36-48); HEMOGLOBIN 10.2 g/dL (12.0-16.0); LYMPHOCYTES # (AUTO) 1.5 K/uL (1.0-5.5); LYMPHOCYTES % (AUTO) 23.2 % (20.5-51.5); MEAN CORPUSCULAR HEMOGLOBIN 27 pg (27-31); MEAN CORPUSCULAR HGB CONC 33 % (32-36); MEAN CORPUSCULAR VOLUME 83 fL (79.0-98.0); MONOCYTES # (AUTO) 0.6 K/uL (0.0-1.0); MONOCYTES % (AUTO) 8.7 % (1.7-9.3); NEUTROPHILS # (AUTO) 4.1 K/uL (1.8-7.7); NEUTROPHILS % (AUTO) 64.6 % (40.0-70.0); PLATELET COUNT (AUTO) 222 K/uL (130-430); RED BLOOD CELL COUNT(AUTO) 3.77 MIL/uL (4.2-6.2); RED CELL DISTRIBUTION WIDTH 17.5 % (9.0-15.0)
[2019-03-04] MEDS: LEVOTHYROXINE SODIUM 0.125 MG TABLET PO SCH (06:20)
--- NOTE | 2019-03-04 06:38 | NUR ---
CLOSING NOTES PATIENT RESTING IN BED. NO DISTRESS NOTED. IVF INFUSING. PATIENT NEEDS ATTENDED. CALL LIGHT WITH IN REACH.
[2019-03-04 06:57] LABS: CALCIUM 7.8 mg/dL (8.4-11.0); CREATININE 0.71 mg/dL (0.55-1.30); PHOSPHORUS 3.8 mg/dL (2.7-4.5); POTASSIUM 3.6 mmol/L (3.5-5.1); THYROID STIMULATING HORMONE 0.75 uIu/mL (0.34-4.82)
[2019-03-04] MEDS ORDERED: LEVOTHYROXINE SODIUM 0.075 MG TABLET PO SCH (07:00)
[2019-03-04] MEDS: NACL 0.9% 1,000 ML IV SCH ×2 (07:00→17:54)
[2019-03-04 07:14] LABS: WHITE BLOOD COUNT (AUTO) 6.4 K/uL (4.8-10.8)
[2019-03-04 07:54] VITALS: BP_SYST 129
[2019-03-04] MEDS: ALBUTEROL SULFATE 0.083% 2.5 MG/3 ML VIAL.NEB INH SCH ×3 (08:00→16:24)
[2019-03-04] MEDS: IPRATROPIUM BROM 0.5 MG/2.5 ML VIAL.NEB (ATROVENT) INH SCH ×3 (08:00→19:39)
--- NOTE | 2019-03-04 08:00 | NUR ---
Note Pt sitting up in bed eating her breakfast. No SOB/resp distress or pain/discomfort noted at this time. IV in left AC intact and patent infusing IVF's well at this time. No needs noted. Call light within reach.
[2019-03-04] MEDS: DULoxetine HCL 30 MG CAPSULE.DR (CYMBALTA) PO SCH (08:56)
[2019-03-04] MEDS: MORPHINE SULFATE 15 MG TABLET.ER PO SCH ×2 (08:56→21:10)
[2019-03-04] MEDS: FAMOTIDINE 20 MG TABLET PO SCH (08:56)
[2019-03-04] MEDS: PREGABALIN 75 MG CAPSULE (LYRICA) PO SCH ×2 (08:56→21:10)
[2019-03-04] MEDS ORDERED: PREGABALIN 75 MG CAPSULE (LYRICA) PO SCH (09:00)
[2019-03-04] MEDS ORDERED: DULoxetine HCL 30 MG CAPSULE.DR (CYMBALTA) PO SCH ×2 (09:00)
[2019-03-04] MEDS ORDERED: *CUBICIN 4 MG/KG Q24H/PHARMACY XX PRN (11:00)
--- NOTE | 2019-03-04 11:05 | NUR ---
Note Pt sitting up in bed watching television with visitor at bedside. No needs noted at this time. Call light within reach. Right lower leg has 3 spider bites (?) - area red and tender to touch. No open areas/bleeding noted at this time.
[2019-03-04] MEDS: DAPTOmycin 300 MG in NS 50 ML IV SCH (12:15)
[2019-03-04 12:35] VITALS: BP_SYST 133
--- NOTE | 2019-03-04 16:15 | NUR ---
Note Pt resting in bed, at bedside at this time. Pt ambulates in room and to restroom with steady gait and IV pole. No needs noted at this time. Call light within reach.
[2019-03-04 16:21] VITALS: BP_SYST 114
[2019-03-04] MEDS: MONTELUKAST 10 MG TABLET PO SCH (17:54)
[2019-03-04] MEDS ORDERED: MONTELUKAST 10 MG TABLET PO SCH (18:00)
--- NOTE | 2019-03-04 18:25 | NUR ---
Note Pt sitting up in bed eating her dinner. Pt was given Benadryl IVP for itching in right lower leg at this time. IV in left AC intact and patent infusing IVF's well at this time. Pt was checked on q1' and PRN all shift for needs and care. No SOB/resp distress or pain/discomfort noted at this time. No needs noted at this time. Call light within reach.
--- NOTE | 2019-03-04 19:34 | NUR ---
Opening Note Pt in bed, AAO. On RA, no s/s of distress noted. Pt has even unlabored breaths. Pt has IVF infusing, site C/D/I, no s/s of infiltration noted. Pt able to make needs known. Bed locked in lowest position, call light in reach, and safety precautions in place. Will continue to monitor.
[2019-03-04] MEDS: ALBUTEROL SULFATE 0.083% 2.5 MG/3 ML VIAL.NEB INH PRN (19:38)
[2019-03-04] MEDS: BUDESONIDE 0.5 MG/2 ML AMPUL.NEB INH SCH (19:55)
[2019-03-04 20:00] VITALS: BP_SYST 141
[2019-03-04] MEDS: traZODone HCL 50 MG TABLET (DESYREL) PO SCH (21:10)
--- NOTE | 2019-03-04 21:10 | NUR ---
Medication administered. Pt educated on medication and side effects. Pt verbalized understanding. Pt tolerated medications well, no s/s of adverse reactions noted. Pt given water, Pt has no other needs at this time. Will continue to monitor.
[2019-03-05] VITALS: BP_SYST 98
--- NOTE | 2019-03-05 00:23 | NUR ---
Pt in bed sleeping. VSS. No c/o of pain or itchiness at this time. Will continue to monitor.
[2019-03-05] MEDS: DIPHENHYDRAMINE INJ 50 MG/ML VIAL IVP PRN ×4 (00:33→23:40)
--- NOTE | 2019-03-05 00:38 | NUR ---
Pt stated she started to feel itchy on her leg, PRN benedryl given. Pt tolerated well. Went back to sleep. Will continue to monitor.
[2019-03-05] MEDS: ALBUTEROL SULFATE 0.083% 2.5 MG/3 ML VIAL.NEB INH SCH ×4 (00:44→19:52)
[2019-03-05] MEDS: IPRATROPIUM BROM 0.5 MG/2.5 ML VIAL.NEB (ATROVENT) INH SCH ×4 (00:44→19:52)
[2019-03-05] MEDS: NACL 0.9% 1,000 ML IV SCH ×3 (03:19→20:58)
--- NOTE | 2019-03-05 03:42 | NUR ---
Pt in bed asleep. No s/s of itchiness noted. Pt able to make needs known. Will continue to monitor. Addendum: 03/05/19 at 0347 by Rachel Koch RN New bag of IVF hung. No other needs. call light with the patient. Safety precautions in place.
--- NOTE | 2019-03-05 05:22 | NUR ---
Pt in bed asleep. No s/s of distress noted. Pt has not c/o of any itchiness since the PRN medication was given. Will continue to monitor.
[2019-03-05] MEDS: LEVOTHYROXINE SODIUM 0.125 MG TABLET PO SCH (06:18)
--- NOTE | 2019-03-05 06:37 | NUR ---
Closing Note Pt in bed, remains AAO. Took morning medications. Educated on action and side effects. Pt verbalized understanding. No c/o of pain or itchiness at this time. Pt IVF infusing, no s/s of infiltration noted. C/D/I. All needs met, no further request from Pt. Bed locked in lowest position, call light in reach, and safety precautions in place. Will endorse to oncoming RN.
[2019-03-05 07:19] LABS: BASOPHILS % (AUTO) 0.4 % (0.0-2.0); EOSINOPHILS # (AUTO) 0.2 K/uL (0.0-0.4); EOSINOPHILS % (AUTO) 2.9 % (0.0-4.0); HEMATOCRIT 32.1 % (36-48); HEMOGLOBIN 10.5 g/dL (12.0-16.0); LYMPHOCYTES # (AUTO) 1.5 K/uL (1.0-5.5); LYMPHOCYTES % (AUTO) 22.4 % (20.5-51.5); MEAN CORPUSCULAR HEMOGLOBIN 27 pg (27-31); MEAN CORPUSCULAR HGB CONC 33 % (32-36); MEAN CORPUSCULAR VOLUME 82 fL (79.0-98.0); MONOCYTES # (AUTO) 0.5 K/uL (0.0-1.0); MONOCYTES % (AUTO) 7.9 % (1.7-9.3); NEUTROPHILS # (AUTO) 4.5 K/uL (1.8-7.7); NEUTROPHILS % (AUTO) 66.4 % (40.0-70.0); PLATELET COUNT (AUTO) 238 K/uL (130-430); RED BLOOD CELL COUNT(AUTO) 3.91 MIL/uL (4.2-6.2); RED CELL DISTRIBUTION WIDTH 17.4 % (9.0-15.0); WHITE BLOOD COUNT (AUTO) 6.7 K/uL (4.8-10.8)
--- NOTE | 2019-03-05 07:20 | NUR ---
AM ROUNDS: RECEIVED REPORT FROM NIGHT NURSE MARIANA. NO ACUTE DISTRESS. CALL LIGHT WITH IN REACH. BED LOCKED AT LOWEST POSITION. NO NEEDS THIS TIME. Addendum: 03/05/19 at 1040 by Meg Bah RN DUPLICATE CHARTING.
[2019-03-05 07:38] LABS: CALCIUM 7.5 mg/dL (8.4-11.0); CREATININE 0.73 mg/dL (0.55-1.30); PHOSPHORUS 3.7 mg/dL (2.7-4.5); POTASSIUM 3.5 mmol/L (3.5-5.1)
--- NOTE | 2019-03-05 07:41 | NUR ---
AM ASSESSMENT Report received from Satya ARITA using SBAR. Pt received laying in bed with eyes closed, pt is easily awaken to verbal stimuli. Even and symmetrical rise and fall of chest, pt on room air. Pt has not complaints of pain or acute distress at this time. Bed in lowest position with call light within reach.
[2019-03-05 08:34] VITALS: BP_SYST 121
[2019-03-05] MEDS: PREGABALIN 75 MG CAPSULE (LYRICA) PO SCH ×2 (08:36→20:58)
[2019-03-05] MEDS: DULoxetine HCL 30 MG CAPSULE.DR (CYMBALTA) PO SCH (08:37)
[2019-03-05] MEDS: MORPHINE SULFATE 15 MG TABLET.ER PO SCH ×2 (08:37→20:58)
[2019-03-05] MEDS: FAMOTIDINE 20 MG TABLET PO SCH (08:37)
[2019-03-05] MEDS: BUDESONIDE 0.5 MG/2 ML AMPUL.NEB INH SCH ×2 (10:30→20:08)
--- NOTE | 2019-03-05 10:30 | NUR ---
RN ROUNDS: WITH VISITOR AT THE BEDSIDE. NO NEEDS THIS TIME.
[2019-03-05] MEDS ORDERED: SENNOSIDES 8.6 MG TABLET PO ONE (11:00)
[2019-03-05] MEDS ORDERED: DIPHENHYDRAMINE INJ 50 MG/ML VIAL IVP ONE (11:30)
[2019-03-05] MEDS: DAPTOmycin 300 MG in NS 50 ML IV SCH (11:53)
--- NOTE | 2019-03-05 12:30 | NUR ---
RN ROUNDS: PATIENT HAVING LUNCH DURING ROUNDS. STABLE.
[2019-03-05 12:48] VITALS: BP_SYST 118
--- NOTE | 2019-03-05 14:35 | NUR ---
RN ROUNDS: RESTING. NO ACUTE DISTRESS.
--- NOTE | 2019-03-05 15:14 | NUR ---
Dietitian Recommendations * Recommend continuing regular diet * RD provided general healthy/wt loss MNT BRONWYN YUAN Please refer to Nutrition Assessment for details. Addendum: 03/05/19 at [address] Amended: Links added.
--- NOTE | 2019-03-05 15:30 | NUR ---
ID VERIFIED DC: SPOKE WITH DR STEPHEN AND PATIENT NOT CLEAR FOR DISCHARGE TODAY.CONTINUE IV ANTIBIOTICS ORDERED.
--- NOTE | 2019-03-05 16:11 | NUR ---
RN ROUNDS: RESTING. NOT IN ANY DISTRESS.
[2019-03-05 16:31] VITALS: BP_SYST 119
[2019-03-05] MEDS: MONTELUKAST 10 MG TABLET PO SCH (17:30)
--- NOTE | 2019-03-05 18:18 | NUR ---
END OF SHIFT: PATIENT HAVING DINNER THIS TIME. NOT IN ANY DISTRESS. CALL LIGHT WITHIN REACH. BED LOCKED AT LOWEST POSITION.
--- NOTE | 2019-03-05 19:30 | NUR ---
OPENING NOTES RECEIVED PATIENT CARE OF PT. PT IS RESTING IN BED, AAO X4. BREATHING IS UNLABORED ON ROOM AIR. IVF INFUSING AT ORDERED RATE, NO S/S OF INFILTRATION AT IV SITE. PLAN OF CARE REVIEWED WITH PATIENT. SAFETY PRECAUTIONS ARE IN PLACE: BED IN LOWEST LOCKED POSITION. CALL LIGHT WITH PT. SIDE RAILS UPX2. WILL MONITOR.
[2019-03-05 20:00] VITALS: BP_SYST 110
[2019-03-05] MEDS: traZODone HCL 50 MG TABLET (DESYREL) PO SCH (20:57)
--- NOTE | 2019-03-05 20:58 | NUR ---
MEDICATION PASS SCHEDULED MEDICATIONS ADMINISTERED. MEDICATIONS AND POTENTIAL SIDE EFFECTS EXPLAINED TO PT. PT VERBALIZED UNDERSTANDING. NO S/S OF DISTRESS. PT DENIES FURTHER NEEDS AT THIS TIME. SAFETY AND FALL PRECAUTIONS OBSERVED. WILL MONITOR.
--- NOTE | 2019-03-05 23:40 | NUR ---
ITCHING/BENADRYL PT REPORTING FEELING ITCHY AT BUG BITE SITE. BENADRYL 25 MG IVP ADMINISTERED. MEDICATION AND POTENTIAL SIDE EFFECTS EXPLAINED TO PT. PT VERBALIZED UNDERSTANDING. PT ENCOURAGED TO CALL FOR FURTHER ASSISTANCE. SAFETY PRECAUTIONS MAINTAINED. WILL MONITOR.
[2019-03-06] MEDS: ALBUTEROL SULFATE 0.083% 2.5 MG/3 ML VIAL.NEB INH SCH ×2 (01:00→07:12)
[2019-03-06] MEDS: IPRATROPIUM BROM 0.5 MG/2.5 ML VIAL.NEB (ATROVENT) INH SCH ×2 (01:00→07:12)
[2019-03-06 01:01] VITALS: BP_SYST 102
--- NOTE | 2019-03-06 01:40 | NUR ---
RESTING PT RESTING IN BED WITH NO S/S OF ACUTE DISTRESS. BREATHING IS EVEN AND UNLABORED TO ROOM AIR. SKIN IS WARM AND DRY TO TOUCH. NO SIGN OF PAIN OR FACIAL GRIMACE. WILL MONITOR.
--- NOTE | 2019-03-06 03:28 | NUR ---
RN NOTE PT RESTING IN BED, NO S/S OF ACUTE DISTRESS, BREATHING IS UNLABORED TO ROOM AIR. NO SIGN OF DISCOMFORT, NO SIGN OF PAIN NOTED AT THIS TIME. IVF INFUSING AT ORDERED RATE. SAFETY AND FALL PRECAUTIONS ARE IN PLACE. WILL MONITOR.
[2019-03-06] MEDS: LEVOTHYROXINE SODIUM 0.125 MG TABLET PO SCH (05:58)
[2019-03-06] MEDS: DIPHENHYDRAMINE INJ 50 MG/ML VIAL IVP PRN ×2 (05:58→11:37)
--- NOTE | 2019-03-06 05:58 | NUR ---
ITCHY/BENADRYL PT GIVEN BENADRYL FOR ITCHINESS. NO S/S OF ACUTE DISTRESS. PT TOLERATED WELL. SAFETY MAINTAINED. WILL MONITOR.
[2019-03-06] MEDS ORDERED: DAPT350V IV (06:06)
--- NOTE | 2019-03-06 06:58 | NUR ---
CLOSING NOTE PT RESTING IN BED. NO S/S OF ACUTE DISTRESS. IVF INFUSING. SAFETY MAINTAINED. ALL NEEDS MET DURING SHIFT. WILL ENDORSE TO DAY SHIFT.
[2019-03-06] MEDS: BUDESONIDE 0.5 MG/2 ML AMPUL.NEB INH SCH (07:12)
--- NOTE | 2019-03-06 07:51 | NUR ---
RN INITIAL NOTES RECEIVED PATIENT IN BED ALERT DOING BREATHING TREATMENT, NO DISTRESS PATIENT WITH IVF TO LEFT AC NO INFILTRATION , PATIENT RESP EVEN AND UNLABORED, SAFETY ENSURED AND CALL LIGHT WITHIN REACH, PATIENT HAS A DC ORDER TODAY AFTER CUBICIN IV ATB IS GIVEN AND WILL CONT WITH OUT PATIENT IV THERAPY TO THE INFECTIOUS DRS OFFICE ,PATIENT VERBALIZED THAT SHE FULLY UNDERSTAND THE FOLLOW UP TOT THE DRS OFFICE AND AWARE OF THE PROCEDURE, STATED SHE KNOW THE ROUTINE TO THE THERAPY
--- NOTE | 2019-03-06 07:59 | NUR ---
RN INITIAL NOTES RECEIVED PATIENT IN BED ALERT AWAKE AND VERBAL, NO COMPLAIN OF PAIN NO DISTRESS. PATIENT VERBALIZED SHE FELT BETTER TODAY ,WILL CONT CARE
[2019-03-06 08:31] VITALS: BP_SYST 101
[2019-03-06] MEDS: PREGABALIN 75 MG CAPSULE (LYRICA) PO SCH (09:03)
[2019-03-06] MEDS: FAMOTIDINE 20 MG TABLET PO SCH (09:03)
[2019-03-06] MEDS: MORPHINE SULFATE 15 MG TABLET.ER PO SCH (09:04)
[2019-03-06] MEDS: DULoxetine HCL 30 MG CAPSULE.DR (CYMBALTA) PO SCH (09:12)
--- NOTE | 2019-03-06 10:00 | NUR ---
ROUNDS PATIENT IS ALERT AWARE THAT SHE WILL BE DC AFTER IV ATB AT BEDSIDE NO COMPLAIN OF PAIN
[2019-03-06 10:14] VITALS: BP_SYST 120
--- NOTE | 2019-03-06 11:30 | NUR ---
Dc Planning: Per dr. Daly: no need to arrange IV infusion. The pt. already set up the outpatient schedules for ABX treatments with dr. Mahoney's office.
[2019-03-06 11:35] VITALS: BP_SYST 120
[2019-03-06] MEDS: DAPTOmycin 300 MG in NS 50 ML IV SCH (11:49)
--- NOTE | 2019-03-06 13:26 | NUR ---
D/C Patient Patient given medication reconciliation form and D/C instructions. Exit Care provided. Patient verbalized understanding. MD discussed with patient the results and treatment provided. Ambulatory with steady gait for discharge to home. Patient in stable condition, ID band removed. IV catheter removed, intact and dressing applied, no active bleeding. taken patient home per patient she will call the [facility] office for appt and aware she will cont with her IV ATB [place] ,infusion center to be arranged by Dr Parker for IV/atb completion. Patient educated on pain management. All belongings sent with patient.
== END 2019-03-06 13:20 | disposition home or self-care (01) | DRG 816 ==
LOC: SED 15:24 → SMU 16:18
PROVIDERS: ADMIT Family Medicine; ATTEND Family Medicine
DX: T63.311A Toxic effect of venom of black widow spider, accidental (unintentional), initial encounter (principal); E87.2 Acidosis; L03.115 Cellulitis of right lower limb; E66.01 Morbid (severe) obesity due to excess calories; E83.41 Hypermagnesemia; L02.425 Furuncle of right lower limb; L02.92 Furuncle, unspecified; J45.909 Unspecified asthma, uncomplicated; F32.9 Major depressive disorder, single episode, unspecified; F41.9 Anxiety disorder, unspecified; G89.4 Chronic pain syndrome; E03.2 Hypothyroidism due to medicaments and other exogenous substances; Z85.850 Personal history of malignant neoplasm of thyroid; Z86.14 Personal history of Methicillin resistant Staphylococcus aureus infection; Z92.3 Personal history of irradiation; Z90.89 Acquired absence of other organs; Z90.49 Acquired absence of other specified parts of digestive tract; Z90.710 Acquired absence of both cervix and uterus; Z79.899 Other long term (current) drug therapy; Z88.1 Allergy status to other antibiotic agents; Z88.0 Allergy status to penicillin; Z88.2 Allergy status to sulfonamides; Z88.8 Allergy status to other drugs, medicaments and biological substances; Z91.018 Allergy to other foods; Z80.9 Family history of malignant neoplasm, unspecified; Z83.3 Family history of diabetes mellitus; Y92.89 Other specified places as the place of occurrence of the external cause; Z68.41 Body mass index [BMI] 40.0-44.9, adult; Z22.322 Carrier or suspected carrier of Methicillin resistant Staphylococcus aureus
CPT/HCPCS: 36415; 71045; 80048; 80053; 80061; 80307; 81003; 83036; 83605; 83735-TC; 84100-TC; 84443-TC; 84484; 84703; 85025; 85610-TC; 85730-TC; 87040-TC; 87081; 87086; 94640; 96360; 99285; J0878; J1200; J7030; J7613; J7626

== ENCOUNTER 2019-03-07 01:18 | Emergency (ER) | payer MEDICAID ==
[~2019-03-07] VITALS: Ht 154.9 cm; Wt 104.3 kg
[~2019-03-07 01:18] MED LIST changes: -CYM30 PO; +DAPT350V IV; +DULO60CA41 PO; +FLUT1BLS3 INH; +LEVO125T PO; -LEVO150T PO; +SPIRIVA INH; +TRAZ-250 PO
[2019-03-07 01:25] VITALS: BP_SYST 106
--- NOTE | 2019-03-07 02:32 | NUR ---
Patient to ER bed 5 to gown for evaluation. Side rails up. Report given to Sanya ARITA.
--- NOTE | 2019-03-07 02:50 | NUR ---
ER at bedside examining patient.
[2019-03-07] MEDS ORDERED: NACL 0.9% 1,000 ML IV ONE (02:52)
[2019-03-07] MEDS ORDERED: BACITRACIN 1 GM OINT TP ONE (03:00)
--- NOTE | 2019-03-07 03:06 | NUR ---
Pt C/O abcess to the Lt flank was recently discharge for cellulitus. Pt's abcess is reddnened and C/O pain on palpation. Denies any other symptoms at this time. Will continue to monitor.
[2019-03-07 03:33] VITALS: BP_SYST 106
--- NOTE | 2019-03-07 03:33 | NUR ---
Patient given written and verbal discharge instructions and verbalizes understanding. ER MD discussed with patient the results and treatment provided. Patient in stable condition. ID arm band removed. Rx of [place] given. Patient educated on pain management and to follow up with PMD. Pain Scale 0. Opportunity for questions provided and answered. Medication side effect fact sheet provided.
== END 2019-03-07 03:33 | disposition home or self-care (01) ==
LOC: SED 01:18
DX: L03.311 Cellulitis of abdominal wall (principal); L08.9 Local infection of the skin and subcutaneous tissue, unspecified; E03.9 Hypothyroidism, unspecified; F41.9 Anxiety disorder, unspecified; F32.9 Major depressive disorder, single episode, unspecified; Z88.0 Allergy status to penicillin; Z88.1 Allergy status to other antibiotic agents; Z88.8 Allergy status to other drugs, medicaments and biological substances
CPT/HCPCS: 99283

== ENCOUNTER 2019-03-15 12:37 | Emergency (ER) | payer MEDICAID ==
[~2019-03-15] VITALS: Ht 154.9 cm; Wt 102.1 kg
[~2019-03-15 12:37] MED LIST changes: +TRAZ-218 PO; -TRAZ-250 PO
[2019-03-15 12:56] VITALS: BP_SYST 140
--- NOTE | 2019-03-15 14:54 | NUR ---
Patient to ER bed 02 to gown for evaluation. Side rails up.
--- NOTE | 2019-03-15 15:00 | NUR ---
Patient presented to ER with C/O hip lump pain. Patient A&Ox4, using wheelchair in ER, afebrile, skin pink, pain 10/10, nausea present, denies V/D, ambulatory to restroom. Patient states lump on left hip present x2 days, patient states she was seen at PMD, Dr. Mahoney last week for chronic skin infection, on 7 day ABX course day #4. Patient states left hip lump pain is 10/10 causing difficulty ambulating. Patient states health hx includes us of morphine for chronic back pain, depression, anxiety, chronic absess, asthma, hypothyroid.
--- NOTE | 2019-03-15 15:20 | NUR ---
ER Dr. Franz at bedside examining patient.
[2019-03-15] MEDS ORDERED: KETOROLAC TROMETHAMINE 60 MG/2 ML VIAL IM ONE (15:30)
--- NOTE | 2019-03-15 15:35 | NUR ---
Patient to Radiology with staff for Ultrasound.
[2019-03-15 15:45] LABS: BASOPHILS # (AUTO) 0.1 K/uL (0.0-0.2); BASOPHILS % (AUTO) 0.9 % (0.0-2.0); EOSINOPHILS # (AUTO) 0.2 K/uL (0.0-0.4); EOSINOPHILS % (AUTO) 1.7 % (0.0-4.0); HEMATOCRIT 34.8 % (36-48); HEMOGLOBIN 11.1 g/dL (12.0-16.0); LYMPHOCYTES # (AUTO) 1.8 K/uL (1.0-5.5); LYMPHOCYTES % (AUTO) 16.1 % (20.5-51.5); MEAN CORPUSCULAR HEMOGLOBIN 26 pg (27-31); MEAN CORPUSCULAR HGB CONC 32 % (32-36); MEAN CORPUSCULAR VOLUME 82 fL (79.0-98.0); MONOCYTES # (AUTO) 0.7 K/uL (0.0-1.0); MONOCYTES % (AUTO) 6.4 % (1.7-9.3); NEUTROPHILS # (AUTO) 8.5 K/uL (1.8-7.7); NEUTROPHILS % (AUTO) 74.9 % (40.0-70.0); PLATELET COUNT (AUTO) 285 K/uL (130-430); RED BLOOD CELL COUNT(AUTO) 4.25 MIL/uL (4.2-6.2); RED CELL DISTRIBUTION WIDTH 17.2 % (9.0-15.0); WHITE BLOOD COUNT (AUTO) 11.4 K/uL (4.8-10.8)
--- NOTE | 2019-03-15 15:45 | NUR ---
Patient to ER bed 2 from radiology via wheelchair
[2019-03-15 15:53] LABS: CREATININE 0.92 mg/dL (0.55-1.30); POTASSIUM 3.6 mmol/L (3.5-5.1)
[2019-03-15 15:59] LABS: ALBUMIN 2.8 g/dL (3.4-4.8); TOTAL BILIRUBIN 0.2 mg/dL (0.0-1.0)
--- NOTE | 2019-03-15 16:24 | NUR ---
ER Dr. Franz at bedside discussing lab results patient.
[2019-03-15 16:45] VITALS: BP_SYST 140
--- NOTE | 2019-03-15 16:45 | NUR ---
Patient given written and verbal discharge instructions and verbalizes understanding. ER MD discussed with patient the results and treatment provided. Patient in stable condition. ID arm band removed. No Rx given. Patient educated on pain management and to follow up with PMD. Pain Scale 0/10. Opportunity for questions provided and answered. Medication side effect fact sheet provided.
== END 2019-03-15 16:45 | disposition home or self-care (01) ==
LOC: SED 12:37
DX: R10.32 Left lower quadrant pain (principal); L08.9 Local infection of the skin and subcutaneous tissue, unspecified; F32.9 Major depressive disorder, single episode, unspecified; F41.9 Anxiety disorder, unspecified; Z90.49 Acquired absence of other specified parts of digestive tract; Z90.89 Acquired absence of other organs; Z86.79 Personal history of other diseases of the circulatory system; Z79.899 Other long term (current) drug therapy; Z88.0 Allergy status to penicillin; Z88.2 Allergy status to sulfonamides; Z88.1 Allergy status to other antibiotic agents; Z88.8 Allergy status to other drugs, medicaments and biological substances; Z91.018 Allergy to other foods
CPT/HCPCS: 36415; 76882; 80053; 81002; 85025; 96372; 99284; J1885

== ENCOUNTER 2019-03-29 14:55 | Inpatient (IN) | payer MEDICAID ==
[~2019-03-29] VITALS: Ht 154.9 cm; Wt 108.9 kg
[2019-03-29 14:55] VITALS: BP_SYST 180
[~2019-03-29 14:55] MED LIST changes: -TRAZ-218 PO; +TRAZ-250 PO
[2019-03-29] MEDS ORDERED: DIPHENHYDRAMINE INJ 50 MG/ML VIAL IVP ONE (15:15)
[2019-03-29] MEDS ORDERED: KETOROLAC TROMETHAMINE 30 MG VIAL IVP ONE (16:00)
[2019-03-29 16:37] LABS: BILIRUBIN,URINE NEGATIVE (NEGATIVE); BLOOD, URINE NEGATIVE (NEGATIVE); CLARITY/URINE SL CLOUDY (CLEAR); COLOR,URINE YELLOW (YELLOW); GLUCOSE,URINE NEGATIVE (NEGATIVE); KETONES,URINE NEGATIVE (NEGATIVE); LEUKOCYTE ESTERASE ,URINE NEGATIVE (NEGATIVE); NITRITE, URINE NEGATIVE (NEGATIVE); PH,URINE 8.5 (5.0-8.0); PROTEIN URINE NEGATIVE (NEGATIVE); UROBILINOGEN,URINE 0.2 (0.2-1.0)
[2019-03-29 16:44] LABS: BASOPHILS # (AUTO) 0.1 K/uL (0.0-0.2); BASOPHILS % (AUTO) 0.7 % (0.0-2.0); EOSINOPHILS # (AUTO) 0.2 K/uL (0.0-0.4); EOSINOPHILS % (AUTO) 2.4 % (0.0-4.0); HEMATOCRIT 36.8 % (36-48); LYMPHOCYTES # (AUTO) 1.7 K/uL (1.0-5.5); LYMPHOCYTES % (AUTO) 17.8 % (20.5-51.5); MEAN CORPUSCULAR HEMOGLOBIN 27 pg (27-31); MEAN CORPUSCULAR HGB CONC 33 % (32-36); MEAN CORPUSCULAR VOLUME 82 fL (79.0-98.0); MONOCYTES # (AUTO) 0.5 K/uL (0.0-1.0); MONOCYTES % (AUTO) 5.8 % (1.7-9.3); NEUTROPHILS # (AUTO) 6.9 K/uL (1.8-7.7); NEUTROPHILS % (AUTO) 73.3 % (40.0-70.0); PLATELET COUNT (AUTO) 306 K/uL (130-430); RED BLOOD CELL COUNT(AUTO) 4.51 MIL/uL (4.2-6.2); RED CELL DISTRIBUTION WIDTH 16.6 % (9.0-15.0); WHITE BLOOD COUNT (AUTO) 9.4 K/uL (4.8-10.8)
[2019-03-29 16:48] LABS: BACTERIA,URINE FEW /HPF (None Seen); CALCIUM 8.9 mg/dL (8.4-11.0); CREATININE 0.75 mg/dL (0.55-1.30); MUCUS,URINE None Seen /LPF (None Seen); POTASSIUM 3.5 mmol/L (3.5-5.1); RBC,URINE NONE SEEN /HPF (0-3); URINE AMORPHOUS PHOSPHATES 3+ /HPF (None Seen); WBC,URINE 0-3 /HPF (0-3)
[2019-03-29 16:59] LABS: ALBUMIN 3.2 g/dL (3.4-4.8); TOTAL BILIRUBIN 0.2 mg/dL (0.0-1.0)
[2019-03-29 18:15] VITALS: BP_SYST 140
[2019-03-29 19:00] VITALS: BP_SYST 117
[2019-03-29] MEDS ORDERED: DIPHENHYDRAMINE INJ 50 MG/ML VIAL IM PRN (19:00)
[2019-03-29] MEDS ORDERED: DIPHENHYDRAMINE INJ 50 MG/ML VIAL IM ONE (19:00)
[2019-03-29] MEDS ORDERED: DULO20CA PO (19:04)
[2019-03-29] MEDS ORDERED: DOCU250C14 PO (19:04)
[2019-03-29] MEDS ORDERED: ASPI-1153 PO (19:04)
[2019-03-29] MEDS ORDERED: VITD2000 PO (19:04)
[2019-03-29] MEDS ORDERED: BLAC80CA PO (19:04)
[2019-03-29] MEDS ORDERED: IMI50 PO (19:04)
[2019-03-29] MEDS ORDERED: HYDR1KIT RC (19:04)
[2019-03-29] MEDS ORDERED: ACETAMINOPHEN 325 MG TABLET PO PRN (19:15)
[2019-03-29] MEDS ORDERED: ONDANSETRON HCL 4 MG/2 ML VIAL IVP PRN (19:15)
[2019-03-29] MEDS ORDERED: ALBUTEROL SULFATE 0.083% 2.5 MG/3 ML VIAL.NEB INH PRN (19:15)
[2019-03-29 20:00] VITALS: BP_SYST 117
[2019-03-29] MEDS: DIPHENHYDRAMINE INJ 50 MG/ML VIAL IVP PRN (20:59)
[2019-03-29] MEDS: DOCUSATE SODIUM 250 MG CAPSULE PO SCH (21:01)
[2019-03-29] MEDS: traZODone HCL 50 MG TABLET (DESYREL) PO SCH (21:01)
[2019-03-29] MEDS: FAMOTIDINE 20 MG TABLET PO SCH (21:02)
[2019-03-29] MEDS: MORPHINE SULFATE 15 MG TABLET.ER PO SCH (21:02)
[2019-03-29] MEDS: SUMAtriptan SUCCINATE 50 MG TABLET PO SCH (22:09)
[2019-03-30] MEDS: DIPHENHYDRAMINE INJ 50 MG/ML VIAL IVP PRN ×2 (04:55→17:23)
[2019-03-30 05:04] VITALS: BP_SYST 138
[2019-03-30] MEDS: LEVOTHYROXINE SODIUM 0.05 MG TABLET PO SCH (06:22)
[2019-03-30 07:26] LABS: BASOPHILS % (AUTO) 0.4 % (0.0-2.0); EOSINOPHILS # (AUTO) 0.3 K/uL (0.0-0.4); EOSINOPHILS % (AUTO) 3.7 % (0.0-4.0); HEMATOCRIT 35.7 % (36-48); HEMOGLOBIN 11.7 g/dL (12.0-16.0); LYMPHOCYTES # (AUTO) 1.7 K/uL (1.0-5.5); LYMPHOCYTES % (AUTO) 22.8 % (20.5-51.5); MEAN CORPUSCULAR HEMOGLOBIN 27 pg (27-31); MEAN CORPUSCULAR HGB CONC 33 % (32-36); MEAN CORPUSCULAR VOLUME 82 fL (79.0-98.0); MONOCYTES # (AUTO) 0.5 K/uL (0.0-1.0); MONOCYTES % (AUTO) 6.3 % (1.7-9.3); NEUTROPHILS # (AUTO) 4.9 K/uL (1.8-7.7); NEUTROPHILS % (AUTO) 66.8 % (40.0-70.0); PLATELET COUNT (AUTO) 260 K/uL (130-430); RED BLOOD CELL COUNT(AUTO) 4.37 MIL/uL (4.2-6.2); RED CELL DISTRIBUTION WIDTH 16.9 % (9.0-15.0); WHITE BLOOD COUNT (AUTO) 7.4 K/uL (4.8-10.8)
[2019-03-30 07:28] LABS: CALCIUM 8.1 mg/dL (8.4-11.0); CREATININE 0.76 mg/dL (0.55-1.30); PHOSPHORUS 3.9 mg/dL (2.7-4.5); POTASSIUM 3.8 mmol/L (3.5-5.1)
[2019-03-30] MEDS: IPRATROPIUM BROM 0.5 MG/2.5 ML VIAL.NEB (ATROVENT) INH SCH ×3 (07:43→21:20)
[2019-03-30] MEDS: ALBUTEROL SULFATE 0.083% 2.5 MG/3 ML VIAL.NEB INH SCH ×3 (07:43→21:21)
[2019-03-30] MEDS: BUDESONIDE 0.5 MG/2 ML AMPUL.NEB INH SCH ×2 (07:46→21:35)
[2019-03-30] MEDS ORDERED: DAPTOmycin 350 MG in NS 50 ML IV SCH (11:00)
[2019-03-30] MEDS: CHOLECALCIFEROL (VITAMIN D3) 2,000 UNIT TABLET PO SCH (11:09)
[2019-03-30] MEDS: ASPIRIN 81 MG TABLET(ECOTRIN) PO SCH (11:09)
[2019-03-30] MEDS: DOCUSATE SODIUM 250 MG CAPSULE PO SCH ×2 (11:09→21:00)
[2019-03-30] MEDS: FAMOTIDINE 20 MG TABLET PO SCH ×2 (11:09→21:00)
[2019-03-30] MEDS: MORPHINE SULFATE 15 MG TABLET.ER PO SCH ×2 (11:10→21:00)
[2019-03-30] MEDS: PREGABALIN 75 MG CAPSULE (LYRICA) PO SCH (11:10)
[2019-03-30] MEDS: DULoxetine HCL 20 MG CAPSULE.DR PO SCH (11:17)
[2019-03-30 11:30] VITALS: BP_SYST 115
[2019-03-30] MEDS ORDERED: DIPHENHYDRAMINE INJ 50 MG/ML VIAL IVP ONE (11:30)
[2019-03-30] MEDS: DAPTOmycin 350 MG in NS 50 ML IV SCH (13:19)
[2019-03-30 15:24] VITALS: BP_SYST 102
[2019-03-30] MEDS: SUMAtriptan SUCCINATE 50 MG TABLET PO SCH (17:16)
[2019-03-30] MEDS ORDERED: MONTELUKAST 10 MG TABLET PO SCH (18:00)
[2019-03-30 19:00] VITALS: BP_SYST 139
[2019-03-30 20:00] VITALS: BP_SYST 139
[2019-03-30] MEDS: traZODone HCL 50 MG TABLET (DESYREL) PO SCH (21:00)
[2019-03-30] MEDS: methylPREDNISolone SOD SUCC 40 MG/ML VIAL IVP SCH (21:01)
[2019-03-31] MEDS: IPRATROPIUM BROM 0.5 MG/2.5 ML VIAL.NEB (ATROVENT) INH SCH ×3 (01:00→13:29)
[2019-03-31] MEDS: ALBUTEROL SULFATE 0.083% 2.5 MG/3 ML VIAL.NEB INH SCH ×3 (01:00→13:29)
[2019-03-31] MEDS: DIPHENHYDRAMINE INJ 50 MG/ML VIAL IVP PRN ×3 (01:22→15:22)
[2019-03-31 02:29] VITALS: BP_SYST 106
[2019-03-31] MEDS: LEVOTHYROXINE SODIUM 0.05 MG TABLET PO SCH (06:25)
[2019-03-31 07:15] LABS: BASOPHILS % (AUTO) 0.2 % (0.0-2.0); HEMATOCRIT 34.6 % (36-48); HEMOGLOBIN 11.5 g/dL (12.0-16.0); LYMPHOCYTES # (AUTO) 0.6 K/uL (1.0-5.5); LYMPHOCYTES % (AUTO) 6.6 % (20.5-51.5); MEAN CORPUSCULAR HEMOGLOBIN 27 pg (27-31); MEAN CORPUSCULAR HGB CONC 33 % (32-36); MEAN CORPUSCULAR VOLUME 82 fL (79.0-98.0); MONOCYTES # (AUTO) 0.1 K/uL (0.0-1.0); NEUTROPHILS # (AUTO) 9.1 K/uL (1.8-7.7); NEUTROPHILS % (AUTO) 92.2 % (40.0-70.0); PLATELET COUNT (AUTO) 281 K/uL (130-430); RED BLOOD CELL COUNT(AUTO) 4.21 MIL/uL (4.2-6.2); RED CELL DISTRIBUTION WIDTH 16.6 % (9.0-15.0)
[2019-03-31] MEDS: BUDESONIDE 0.5 MG/2 ML AMPUL.NEB INH SCH (07:16)
[2019-03-31 07:23] LABS: CALCIUM 8.2 mg/dL (8.4-11.0); CREATININE 0.77 mg/dL (0.55-1.30); PHOSPHORUS 2.4 mg/dL (2.7-4.5); POTASSIUM 4.3 mmol/L (3.5-5.1)
[2019-03-31 08:50] VITALS: BP_SYST 114
[2019-03-31 09:08] LABS: WHITE BLOOD COUNT (AUTO) 9.9 K/uL (4.8-10.8)
[2019-03-31] MEDS: CHOLECALCIFEROL (VITAMIN D3) 2,000 UNIT TABLET PO SCH (09:22)
[2019-03-31] MEDS: ASPIRIN 81 MG TABLET(ECOTRIN) PO SCH (09:22)
[2019-03-31] MEDS: methylPREDNISolone SOD SUCC 40 MG/ML VIAL IVP SCH (09:22)
[2019-03-31] MEDS: PREGABALIN 75 MG CAPSULE (LYRICA) PO SCH (09:22)
[2019-03-31] MEDS: FAMOTIDINE 20 MG TABLET PO SCH (09:23)
[2019-03-31] MEDS: MORPHINE SULFATE 15 MG TABLET.ER PO SCH (09:23)
[2019-03-31] MEDS: SUMAtriptan SUCCINATE 50 MG TABLET PO SCH (09:24)
[2019-03-31] MEDS: DULoxetine HCL 20 MG CAPSULE.DR PO SCH (09:27)
[2019-03-31] MEDS: DOCUSATE SODIUM 250 MG CAPSULE PO SCH (09:31)
[2019-03-31] MEDS ORDERED: DIPHENHYDRAMINE INJ 50 MG/ML VIAL IVP ONE (11:30)
[2019-03-31 11:38] VITALS: BP_SYST 130
[2019-03-31] MEDS: DAPTOmycin 350 MG in NS 50 ML IV SCH (12:06)
[2019-03-31] MEDS ORDERED: DIF100 PO (12:24)
[2019-03-31] MEDS ORDERED: MED4 PO (12:24)
[2019-03-31 14:24] VITALS: BP_SYST 114
[2019-03-31 15:15] VITALS: BP_SYST 110
== END 2019-03-31 15:45 | disposition home or self-care (01) | DRG 383 ==
LOC: SED 14:55 → SMU 17:59
PROVIDERS: ADMIT Family Medicine; ATTEND Family Medicine
DX: L03.319 Cellulitis of trunk, unspecified (principal); R65.10 Systemic inflammatory response syndrome (SIRS) of non-infectious origin without acute organ dysfunction; E44.1 Mild protein-calorie malnutrition; L02.212 Cutaneous abscess of back [any part, except buttock and flank]; Z68.41 Body mass index [BMI] 40.0-44.9, adult; E03.9 Hypothyroidism, unspecified; L02.219 Cutaneous abscess of trunk, unspecified; F32.9 Major depressive disorder, single episode, unspecified; F41.9 Anxiety disorder, unspecified; G89.29 Other chronic pain; M54.9 Dorsalgia, unspecified; M54.30 Sciatica, unspecified side; G43.909 Migraine, unspecified, not intractable, without status migrainosus; G47.00 Insomnia, unspecified; E66.9 Obesity, unspecified; L02.92 Furuncle, unspecified; Z88.1 Allergy status to other antibiotic agents; Z85.850 Personal history of malignant neoplasm of thyroid; Z88.0 Allergy status to penicillin; Z91.013 Allergy to seafood; Z91.018 Allergy to other foods; Z86.73 Personal history of transient ischemic attack (TIA), and cerebral infarction without residual deficits; Z90.49 Acquired absence of other specified parts of digestive tract; Z90.710 Acquired absence of both cervix and uterus; Z80.41 Family history of malignant neoplasm of ovary; Z88.2 Allergy status to sulfonamides
CPT/HCPCS: 36415; 80048; 80053; 81000-TC; 83605; 83735-TC; 84100-TC; 85025; 87040-TC; 87070-TC; 87075-TC; 87081; 87086; 94640; 94760; 96374; 96375; 99285; J0878; J1030; J1200; J1885; J7613; J7626

== ENCOUNTER 2019-04-07 17:44 | Emergency (ER) | payer MEDICAID ==
[~2019-04-07] VITALS: Ht 154.9 cm; Wt 108.9 kg
[~2019-04-07 17:44] MED LIST changes: +ASPI-1153 PO; +BLAC80CA PO; +DIF100 PO; +DOCU250C14 PO; +DULO20CA PO; +HYDR1KIT RC; +IMI50 PO; +MED4 PO; +VITD2000 PO
[2019-04-07 17:45] VITALS: BP_SYST 114
--- NOTE | 2019-04-07 17:45 | NUR ---
Patient triaged and placed in waiting room. VSS and patient appears in no acute distress at this time. Accompanied by FAMILY, awaiting available bed, and MD notified of need for MSE.
--- NOTE | 2019-04-07 18:59 | NUR ---
BROUGHT BACK TO BED #6 AND TRIAGED. REPORT GIVEN TO PRINCIPAL ENGINEER
[2019-04-07] MEDS ORDERED: ONDANSETRON 4 MG ODT TAB PO ONE (19:30)
[2019-04-07 19:43] LABS: BASOPHILS # (AUTO) 0.1 K/uL (0.0-0.2); BASOPHILS % (AUTO) 0.9 % (0.0-2.0); EOSINOPHILS # (AUTO) 0.1 K/uL (0.0-0.4); EOSINOPHILS % (AUTO) 0.8 % (0.0-4.0); HEMATOCRIT 37.3 % (36-48); HEMOGLOBIN 12.3 g/dL (12.0-16.0); LYMPHOCYTES # (AUTO) 2.5 K/uL (1.0-5.5); LYMPHOCYTES % (AUTO) 17.7 % (20.5-51.5); MEAN CORPUSCULAR HEMOGLOBIN 27 pg (27-31); MEAN CORPUSCULAR HGB CONC 33 % (32-36); MEAN CORPUSCULAR VOLUME 82 fL (79.0-98.0); MONOCYTES # (AUTO) 0.9 K/uL (0.0-1.0); NEUTROPHILS # (AUTO) 10.6 K/uL (1.8-7.7); NEUTROPHILS % (AUTO) 74.6 % (40.0-70.0); PLATELET COUNT (AUTO) 306 K/uL (130-430); RED BLOOD CELL COUNT(AUTO) 4.56 MIL/uL (4.2-6.2); RED CELL DISTRIBUTION WIDTH 16.6 % (9.0-15.0); WHITE BLOOD COUNT (AUTO) 14.2 K/uL (4.8-10.8)
[2019-04-07 19:56] LABS: CALCIUM 8.4 mg/dL (8.4-11.0); CREATININE 0.79 mg/dL (0.55-1.30); POTASSIUM 3.5 mmol/L (3.5-5.1)
[2019-04-07 20:01] LABS: TOTAL BILIRUBIN 0.2 mg/dL (0.0-1.0)
[2019-04-07 20:41] VITALS: BP_SYST 114
== END 2019-04-07 20:41 | disposition home or self-care (01) ==
LOC: SED 17:44
DX: R11.2 Nausea with vomiting, unspecified (principal); R10.13 Epigastric pain; E03.9 Hypothyroidism, unspecified; Z85.850 Personal history of malignant neoplasm of thyroid; Z86.73 Personal history of transient ischemic attack (TIA), and cerebral infarction without residual deficits; Z90.49 Acquired absence of other specified parts of digestive tract; Z90.89 Acquired absence of other organs; Z90.710 Acquired absence of both cervix and uterus; Z88.1 Allergy status to other antibiotic agents; Z88.0 Allergy status to penicillin; Z88.2 Allergy status to sulfonamides; Z91.018 Allergy to other foods; Z79.899 Other long term (current) drug therapy
CPT/HCPCS: 36415; 80053; 85025; 99283; Q0162

== ENCOUNTER 2019-05-20 15:20 | Emergency (ER) | payer MEDICAID ==
[~2019-05-20] VITALS: Ht 154.9 cm; Wt 106.6 kg
[2019-05-20 15:29] VITALS: BP_SYST 131
--- NOTE | 2019-05-20 20:10 | NUR ---
Called patient x 1 , no answer
--- NOTE | 2019-05-20 20:15 | NUR ---
Called pt x 2 , no answer
--- NOTE | 2019-05-20 20:20 | NUR ---
Called pt x 3, no answer
--- NOTE | 2019-05-20 20:20 | NUR ---
Patient left without being seen.
== END 2019-05-20 20:20 | disposition left against medical advice (07) ==
LOC: SED 15:20
DX: M54.5 Low back pain (principal); Z53.21 Procedure and treatment not carried out due to patient leaving prior to being seen by health care provider

== ENCOUNTER 2019-05-21 11:54 | Emergency (ER) | payer MEDICAID ==
[~2019-05-21] VITALS: Ht 154.9 cm; Wt 106.6 kg
[2019-05-21 12:02] VITALS: BP_SYST 106
--- NOTE | 2019-05-21 12:02 | NUR ---
Patient to ER bed 08 to gown for evaluation. Side rails up.
--- NOTE | 2019-05-21 12:05 | NUR ---
JIMI Peterson at bedside examining patient.
[2019-05-21] MEDS ORDERED: KETOROLAC TROMETHAMINE 30 MG VIAL IVP ONE (12:15)
[2019-05-21] MEDS ORDERED: MORPHINE 4 MG/ML INJ. SYRINGE IVP ONE (12:15)
--- NOTE | 2019-05-21 12:15 | NUR ---
Patient presented to ER c/o lower back pain. Patient A&ox4, afebrile, ambulatory to ER, skin pink and warm, pain 04/04, denies N/V/D. Patient states she has chronic back pain today pain to lower back radiating to Left leg.
[2019-05-21 13:07] VITALS: BP_SYST 106
--- NOTE | 2019-05-21 13:07 | NUR ---
Patient given written and verbal discharge instructions and verbalizes understanding. ER MD discussed with patient the results and treatment provided. Patient in stable condition. ID arm band removed. No Rx given. Patient educated on pain management and to follow up with PMD. Pain Scale 2/10 tolerable for pt. Opportunity for questions provided and answered. Medication side effect fact sheet provided.
== END 2019-05-21 13:07 | disposition home or self-care (01) ==
LOC: SED 11:54
DX: G89.29 Other chronic pain (principal); M54.5 Low back pain; I63.9 Cerebral infarction, unspecified; R56.9 Unspecified convulsions; E03.9 Hypothyroidism, unspecified; F32.9 Major depressive disorder, single episode, unspecified; F41.9 Anxiety disorder, unspecified; Z85.850 Personal history of malignant neoplasm of thyroid; Z86.14 Personal history of Methicillin resistant Staphylococcus aureus infection; Z90.49 Acquired absence of other specified parts of digestive tract; Z79.82 Long term (current) use of aspirin; Z79.899 Other long term (current) drug therapy; Z88.1 Allergy status to other antibiotic agents; Z88.0 Allergy status to penicillin; Z88.2 Allergy status to sulfonamides; Z88.8 Allergy status to other drugs, medicaments and biological substances; Z91.018 Allergy to other foods
CPT/HCPCS: 96374; 96375; 99283; J1885; J2270

== ENCOUNTER 2019-05-25 11:12 | Emergency (ER) | payer MEDICAID ==
[~2019-05-25] VITALS: Ht 154.9 cm; Wt 106.6 kg
[2019-05-25 11:21] VITALS: BP_SYST 117
[2019-05-25] MEDS ORDERED: KETOROLAC TROMETHAMINE 60 MG/2 ML VIAL IM ONE (11:45)
[2019-05-25] MEDS ORDERED: MORPHINE 4 MG/ML INJ. SYRINGE IM ONE (11:45)
[2019-05-25 12:29] VITALS: BP_SYST 125
== END 2019-05-25 12:28 | disposition home or self-care (01) ==
LOC: SED 11:12
DX: G89.29 Other chronic pain (principal); M54.9 Dorsalgia, unspecified; F41.9 Anxiety disorder, unspecified; F32.9 Major depressive disorder, single episode, unspecified; Z88.0 Allergy status to penicillin; Z88.1 Allergy status to other antibiotic agents; Z88.2 Allergy status to sulfonamides; Z79.899 Other long term (current) drug therapy
CPT/HCPCS: 96372; 99283; J1885; J2270

== ENCOUNTER 2019-05-30 08:00 | Emergency (ER) | payer MEDICAID ==
[2019-05-30] MEDS ORDERED: KETAMINE 30 MG/3 ML SYRINGE ONE (08:45)
[2019-05-30] MEDS ORDERED: MORPHINE 4 MG/ML INJ. SYRINGE ONE (08:45)
== END 2019-05-30 09:45 | disposition home or self-care (01) ==
LOC: SED 08:00
DX: M54.16 Radiculopathy, lumbar region (principal); E03.9 Hypothyroidism, unspecified; F32.9 Major depressive disorder, single episode, unspecified; Z88.0 Allergy status to penicillin; Z88.1 Allergy status to other antibiotic agents; Z91.018 Allergy to other foods; Z79.899 Other long term (current) drug therapy; Z79.82 Long term (current) use of aspirin
CPT/HCPCS: 96374; 96375; 99283; J2270

== ENCOUNTER 2019-06-01 19:18 | Emergency (ER) | payer MEDICAID ==
[~2019-06-01] VITALS: Ht 154.9 cm; Wt 106.6 kg
[2019-06-01 23:58] VITALS: BP_SYST 130
--- NOTE | 2019-06-02 00:04 | NUR ---
Patient triaged and placed in waiting room. VSS and patient appears in no acute distress at this time. Accompanied by family, awaiting available bed, and MD notified of need for MSE.
--- NOTE | 2019-06-02 02:56 | NUR ---
Dr. Pro evaluating pt in triage room
--- NOTE | 2019-06-02 05:55 | NUR ---
PT eloped at this time per admitting staff.
--- NOTE | 2019-06-02 05:55 | NUR ---
Ciera hines in EDM - 06/02/19 at 0701 by SDEDSTC Pt LWBS at this time per admitting.
[2019-06-03] MEDS ORDERED: BIOT10006 PO (14:37)
[2019-06-03] MEDS ORDERED: DULO20CA PO (14:37)
[2019-06-03] MEDS ORDERED: LEVO25TA7 PO (14:37)
[2019-06-03] MEDS ORDERED: ALBMDI INH (14:37)
== END 2019-06-02 05:55 | disposition left against medical advice (07) ==
LOC: SED 19:18
DX: L03.116 Cellulitis of left lower limb (principal); F41.9 Anxiety disorder, unspecified; E03.9 Hypothyroidism, unspecified; M54.5 Low back pain; R56.9 Unspecified convulsions; Z90.49 Acquired absence of other specified parts of digestive tract; Z90.710 Acquired absence of both cervix and uterus; Z85.850 Personal history of malignant neoplasm of thyroid; Z79.82 Long term (current) use of aspirin; Z79.899 Other long term (current) drug therapy; Z88.0 Allergy status to penicillin; Z88.1 Allergy status to other antibiotic agents; Z88.2 Allergy status to sulfonamides; Z91.018 Allergy to other foods; Z86.14 Personal history of Methicillin resistant Staphylococcus aureus infection; Z86.73 Personal history of transient ischemic attack (TIA), and cerebral infarction without residual deficits
CPT/HCPCS: 99281

== ENCOUNTER 2019-06-03 10:14 | Inpatient (IN) | payer MEDICAID ==
[~2019-06-03] VITALS: Ht 154.9 cm; Wt 106.6 kg
[2019-06-03 10:33] VITALS: BP_SYST 153
[2019-06-03 13:14] LABS: BASOPHILS # (AUTO) 0.1 K/uL (0.0-0.2); BASOPHILS % (AUTO) 0.6 % (0.0-2.0); EOSINOPHILS # (AUTO) 0.5 K/uL (0.0-0.4); EOSINOPHILS % (AUTO) 4.4 % (0.0-4.0); HEMATOCRIT 40.3 % (36-48); HEMOGLOBIN 13.4 g/dL (12.0-16.0); LYMPHOCYTES # (AUTO) 1.5 K/uL (1.0-5.5); LYMPHOCYTES % (AUTO) 13.8 % (20.5-51.5); MEAN CORPUSCULAR HEMOGLOBIN 27 pg (27-31); MEAN CORPUSCULAR HGB CONC 33 % (32-36); MEAN CORPUSCULAR VOLUME 82 fL (79.0-98.0); MONOCYTES # (AUTO) 0.6 K/uL (0.0-1.0); MONOCYTES % (AUTO) 5.9 % (1.7-9.3); NEUTROPHILS % (AUTO) 75.3 % (40.0-70.0); PLATELET COUNT (AUTO) 290 K/uL (130-430); RED BLOOD CELL COUNT(AUTO) 4.91 MIL/uL (4.2-6.2); RED CELL DISTRIBUTION WIDTH 16.8 % (9.0-15.0); WHITE BLOOD COUNT (AUTO) 10.6 K/uL (4.8-10.8)
[2019-06-03 13:21] LABS: CREATININE 0.76 mg/dL (0.55-1.30); POTASSIUM 3.1 mmol/L (3.5-5.1)
[2019-06-03 13:27] LABS: ALBUMIN 3.4 g/dL (3.4-4.8); TOTAL BILIRUBIN 0.4 mg/dL (0.0-1.0)
[2019-06-03] MEDS ORDERED: LEVO25TA7 PO (14:37)
[2019-06-03] MEDS ORDERED: BIOT10006 PO (14:37)
[2019-06-03] MEDS ORDERED: ALBMDI INH (14:37)
[2019-06-03] MEDS ORDERED: DULO20CA PO (14:37)
[2019-06-03] MEDS ORDERED: POTASSIUM CHLORIDE 20 MEQ/PKT PACKET PO ONE (16:15)
[2019-06-03] MEDS ORDERED: MORPHINE 4 MG/ML INJ. SYRINGE IVP ONE (18:15)
[2019-06-03] MEDS ORDERED: PROCHLORPERAZINE EDISYLATE 10 MG/2 ML VIAL IVP PRN (18:15)
[2019-06-03] MEDS ORDERED: DIPHENHYDRAMINE INJ 50 MG/ML VIAL IVP ONE (20:30)
[2019-06-03] MEDS: DAPTOmycin 400 MG in NS 50 ML IV SCH (20:30)
[2019-06-03] MEDS ORDERED: ONDANSETRON HCL 4 MG/2 ML VIAL IVP PRN (22:00)
[2019-06-03] MEDS: MORPHINE 2 MG/ML INJ. SYRINGE IVP PRN (22:50)
[2019-06-04] MEDS: MORPHINE 2 MG/ML INJ. SYRINGE IVP PRN ×4 (02:59→21:35)
[2019-06-04] MEDS ORDERED: FLUTICASONE/VILANTEROL 1 EACH BLST.W.DEV INH SCH (10:00)
[2019-06-04 12:12] VITALS: BP_SYST 112
[2019-06-04] MEDS ORDERED: LEVOTHYROXINE SODIUM 0.025 MG TABLET PO ONE (13:15)
[2019-06-04] MEDS ORDERED: PREGABALIN 75 MG CAPSULE (LYRICA) PO ONE ×2 (13:25→13:30)
[2019-06-04] MEDS ORDERED: MORPHINE SULFATE 15 MG TABLET.ER PO ONE (13:30)
[2019-06-04] MEDS ORDERED: LEVOTHYROXINE SODIUM 0.075 MG TABLET PO ONE (13:30)
[2019-06-04] MEDS ORDERED: LEVOTHYROXINE SODIUM 0.1 MG TABLET PO ONE (13:30)
[2019-06-04 16:10] VITALS: BP_SYST 117
[2019-06-04] MEDS: MONTELUKAST 10 MG TABLET PO SCH (17:53)
[2019-06-04] MEDS ORDERED: DIPHENHYDRAMINE INJ 50 MG/ML VIAL ONE (17:53)
[2019-06-04] MEDS: DAPTOmycin 400 MG in NS 50 ML IV SCH (17:58)
[2019-06-04 20:00] VITALS: BP_SYST 119
[2019-06-04] MEDS: MORPHINE SULFATE 15 MG TABLET.ER PO SCH (20:26)
[2019-06-04] MEDS: traZODone HCL 50 MG TABLET (DESYREL) PO SCH (20:26)
[2019-06-05] MEDS: DIPHENHYDRAMINE INJ 50 MG/ML VIAL IVP SCH ×5 (00:11→23:47)
[2019-06-05 01:57] VITALS: BP_SYST 133
[2019-06-05] MEDS: LEVOTHYROXINE SODIUM 0.075 MG TABLET PO SCH (05:40)
[2019-06-05] MEDS: LEVOTHYROXINE SODIUM 0.1 MG TABLET PO SCH (05:41)
[2019-06-05] MEDS: ALBUTEROL SULFATE 0.083% 2.5 MG/3 ML VIAL.NEB INH SCH ×3 (07:27→19:51)
[2019-06-05] MEDS: BUDESONIDE 0.5 MG/2 ML AMPUL.NEB INH SCH ×2 (07:27→20:05)
[2019-06-05 08:00] VITALS: BP_SYST 100
[2019-06-05] MEDS: DULoxetine HCL 20 MG CAPSULE.DR PO SCH ×2 (09:00→12:44)
[2019-06-05] MEDS: PREGABALIN 75 MG CAPSULE (LYRICA) PO SCH (11:02)
[2019-06-05] MEDS: ASPIRIN 81 MG TABLET(ECOTRIN) PO SCH (11:03)
[2019-06-05] MEDS: MORPHINE SULFATE 15 MG TABLET.ER PO SCH ×2 (11:03→21:58)
[2019-06-05] MEDS: MORPHINE 2 MG/ML INJ. SYRINGE IVP PRN ×2 (11:13→20:38)
[2019-06-05 12:00] VITALS: BP_SYST 128
[2019-06-05 16:00] VITALS: BP_SYST 108
[2019-06-05] MEDS: MONTELUKAST 10 MG TABLET PO SCH (18:23)
[2019-06-05] MEDS: DAPTOmycin 400 MG in NS 50 ML IV SCH (19:42)
[2019-06-05 20:00] VITALS: BP_SYST 121
[2019-06-05] MEDS: traZODone HCL 50 MG TABLET (DESYREL) PO SCH (20:38)
[2019-06-06] MEDS: ALBUTEROL SULFATE 0.083% 2.5 MG/3 ML VIAL.NEB INH SCH ×3 (01:00→19:00)
[2019-06-06 01:20] VITALS: BP_SYST 110
[2019-06-06] MEDS: MORPHINE 2 MG/ML INJ. SYRINGE IVP PRN ×3 (03:42→19:04)
[2019-06-06] MEDS: LEVOTHYROXINE SODIUM 0.075 MG TABLET PO SCH (06:12)
[2019-06-06] MEDS: LEVOTHYROXINE SODIUM 0.1 MG TABLET PO SCH (06:12)
[2019-06-06] MEDS: DIPHENHYDRAMINE INJ 50 MG/ML VIAL IVP SCH ×3 (06:12→17:32)
[2019-06-06] MEDS: BUDESONIDE 0.5 MG/2 ML AMPUL.NEB INH SCH ×2 (07:52→19:00)
[2019-06-06 08:00] VITALS: BP_SYST 125
[2019-06-06] MEDS: DULoxetine HCL 20 MG CAPSULE.DR PO SCH (08:45)
[2019-06-06] MEDS: ASPIRIN 81 MG TABLET(ECOTRIN) PO SCH (08:45)
[2019-06-06] MEDS: PREGABALIN 75 MG CAPSULE (LYRICA) PO SCH (08:45)
[2019-06-06] MEDS: MORPHINE SULFATE 15 MG TABLET.ER PO SCH (08:46)
[2019-06-06 12:35] VITALS: BP_SYST 123
[2019-06-06 16:40] VITALS: BP_SYST 127
[2019-06-06 17:16] VITALS: BP_SYST 119
[2019-06-06] MEDS: MONTELUKAST 10 MG TABLET PO SCH (17:32)
[2019-06-06] MEDS: DAPTOmycin 400 MG in NS 50 ML IV SCH (18:00)
== END 2019-06-06 20:40 | disposition home or self-care (01) | DRG 383 ==
LOC: SED 10:14 → SMU 16:26
PROVIDERS: ADMIT Internal Medicine Hospice and Palliative Medicine; ATTEND Internal Medicine Hospice and Palliative Medicine
DX: L03.116 Cellulitis of left lower limb (principal); E66.01 Morbid (severe) obesity due to excess calories; L02.416 Cutaneous abscess of left lower limb; B95.62 Methicillin resistant Staphylococcus aureus infection as the cause of diseases classified elsewhere; E89.0 Postprocedural hypothyroidism; F32.9 Major depressive disorder, single episode, unspecified; F41.9 Anxiety disorder, unspecified; L73.9 Follicular disorder, unspecified; G89.4 Chronic pain syndrome; G40.909 Epilepsy, unspecified, not intractable, without status epilepticus; J45.909 Unspecified asthma, uncomplicated; Z85.850 Personal history of malignant neoplasm of thyroid; Z88.1 Allergy status to other antibiotic agents; Z68.44 Body mass index [BMI] 60.0-69.9, adult; Z88.8 Allergy status to other drugs, medicaments and biological substances; Z88.2 Allergy status to sulfonamides; Z79.899 Other long term (current) drug therapy; Z86.73 Personal history of transient ischemic attack (TIA), and cerebral infarction without residual deficits
CPT/HCPCS: 36415; 80053; 82962; 83605; 85025; 87040-TC; 87081; 94640; 96374; 96375; 99285; J0780; J0878; J1200; J2270; J7613; J7626

== ENCOUNTER 2019-07-09 14:27 | Emergency (ER) | payer MEDICAID ==
[~2019-07-09] VITALS: Ht 154.9 cm; Wt 108.9 kg
[~2019-07-09 14:27] MED LIST changes: +BIOT10006 PO; -DAPT350V IV; -DIF100 PO; -DULO60CA41 PO; -LEVO125T PO; +LEVO25TA7 PO; -MED4 PO
[2019-07-09 14:56] VITALS: BP_SYST 133
--- NOTE | 2019-07-09 17:23 | NUR ---
Patient to ER bed 07 to gown for evaluation. Side rails up.
--- NOTE | 2019-07-09 17:25 | NUR ---
Pt brought by self, A&Ox4, pt presents to ER with anxiety, intermittent chest pain, skin pink and warm, cap refill <3, VSS, respirations even and unlabored.
--- NOTE | 2019-07-09 17:34 | NUR ---
DR WOODALL AT BEDSIDE FOR EVALUATION
[2019-07-09 18:02] LABS: BASOPHILS # (AUTO) 0.1 K/uL (0.0-0.2); BASOPHILS % (AUTO) 0.7 % (0.0-2.0); EOSINOPHILS # (AUTO) 0.2 K/uL (0.0-0.4); EOSINOPHILS % (AUTO) 2.3 % (0.0-4.0); HEMATOCRIT 37.3 % (36-48); HEMOGLOBIN 12.1 g/dL (12.0-16.0); LYMPHOCYTES # (AUTO) 1.8 K/uL (1.0-5.5); LYMPHOCYTES % (AUTO) 18.6 % (20.5-51.5); MEAN CORPUSCULAR HEMOGLOBIN 26 pg (27-31); MEAN CORPUSCULAR HGB CONC 32 % (32-36); MEAN CORPUSCULAR VOLUME 82 fL (79.0-98.0); MONOCYTES # (AUTO) 0.6 K/uL (0.0-1.0); MONOCYTES % (AUTO) 5.9 % (1.7-9.3); NEUTROPHILS # (AUTO) 6.8 K/uL (1.8-7.7); NEUTROPHILS % (AUTO) 72.5 % (40.0-70.0); PLATELET COUNT (AUTO) 248 K/uL (130-430); RED BLOOD CELL COUNT(AUTO) 4.57 MIL/uL (4.2-6.2); RED CELL DISTRIBUTION WIDTH 16.6 % (9.0-15.0); WHITE BLOOD COUNT (AUTO) 9.4 K/uL (4.8-10.8)
[2019-07-09 18:21] LABS: ALBUMIN 3.3 g/dL (3.4-4.8); CREATININE 0.66 mg/dL (0.55-1.30); POTASSIUM 3.4 mmol/L (3.5-5.1); TOTAL BILIRUBIN 0.2 mg/dL (0.0-1.0)
[2019-07-09 18:28] LABS: CALCIUM 8.1 mg/dL (8.4-11.0)
--- NOTE | 2019-07-09 18:45 | NUR ---
Pt resting at this time, no s/s of distress, VSS.
[2019-07-09 19:00] VITALS: BP_SYST 133
== END 2019-07-09 19:00 | disposition home or self-care (01) ==
LOC: SED 14:27
DX: F41.9 Anxiety disorder, unspecified (principal); R07.89 Other chest pain; J45.909 Unspecified asthma, uncomplicated; E03.9 Hypothyroidism, unspecified; M54.5 Low back pain; F32.9 Major depressive disorder, single episode, unspecified; Z86.79 Personal history of other diseases of the circulatory system; Z85.850 Personal history of malignant neoplasm of thyroid; Z86.14 Personal history of Methicillin resistant Staphylococcus aureus infection; Z88.0 Allergy status to penicillin; Z88.1 Allergy status to other antibiotic agents; Z88.2 Allergy status to sulfonamides; Z88.6 Allergy status to analgesic agent; Z91.018 Allergy to other foods
CPT/HCPCS: 36415; 71045; 80053; 81025; 84484; 85025; 93005; 99284

== ENCOUNTER 2019-12-22 13:57 | Emergency (ER) | payer OTHER, MEDICAID ==
[~2019-12-22] VITALS: Ht 154.9 cm; Wt 102.1 kg
[2019-12-22 14:14] VITALS: BP_SYST 113
--- NOTE | 2019-12-22 14:15 | NUR ---
Patient to ER bed H1 to gown for evaluation. Side rails up. Assumed care from LYLA Mcneal triage nurse.
--- NOTE | 2019-12-22 14:25 | NUR ---
ER at bedside examining patient.
--- NOTE | 2019-12-22 14:30 | NUR ---
Patient arrived via POV, AAOx4, and ambulatory with limping gait with cane. Patient states she had a fall [address] and has been in pain since, takes home pain medications but it is not working. Patient states she has chronic back pain but it is worsened. Patient notes pain to low back, left ankle and left knee. Patient has only small bruise to left forearm which she states has no pain. Patient states it is a trip and fall. Patient is calm and cooperative. Will continue to follow up and monitor.
[2019-12-22] MEDS ORDERED: NACL 0.9% 1,000 ML IV ONE (14:34)
[2019-12-22] MEDS ORDERED: ONDANSETRON HCL 4 MG/2 ML VIAL IVP ONE (14:45)
[2019-12-22] MEDS ORDERED: MORPHINE 4 MG/ML INJ. SYRINGE IVP ONE (14:45)
--- NOTE | 2019-12-22 15:02 | NUR ---
Urine specimen collected and analyzed in ER. Results given to ER MD. HCG NEGATIVE AND URINE DIP COMPLETED, PATIENT TAKEN TO CT SCAN VIA WHEELCHAIR.
[2019-12-22 15:13] LABS: BASOPHILS # (AUTO) 0.1 K/uL (0.0-0.2); BASOPHILS % (AUTO) 0.9 % (0.0-2.0); EOSINOPHILS # (AUTO) 0.1 K/uL (0.0-0.4); EOSINOPHILS % (AUTO) 1.6 % (0.0-4.0); HEMATOCRIT 37.3 % (36-48); HEMOGLOBIN 12.2 g/dL (12.0-16.0); LYMPHOCYTES # (AUTO) 1.7 K/uL (1.0-5.5); LYMPHOCYTES % (AUTO) 19.6 % (20.5-51.5); MEAN CORPUSCULAR HEMOGLOBIN 27 pg (27-31); MEAN CORPUSCULAR HGB CONC 33 % (32-36); MEAN CORPUSCULAR VOLUME 81 fL (79.0-98.0); MONOCYTES # (AUTO) 0.6 K/uL (0.0-1.0); MONOCYTES % (AUTO) 7.1 % (1.7-9.3); NEUTROPHILS % (AUTO) 70.8 % (40.0-70.0); PLATELET COUNT (AUTO) 281 K/uL (130-430); RED BLOOD CELL COUNT(AUTO) 4.58 MIL/uL (4.2-6.2); RED CELL DISTRIBUTION WIDTH 16.2 % (9.0-15.0); WHITE BLOOD COUNT (AUTO) 8.5 K/uL (4.8-10.8)
[2019-12-22 15:23] LABS: BILIRUBIN,URINE NEGATIVE (NEGATIVE); BLOOD, URINE NEGATIVE (NEGATIVE); CLARITY/URINE CLEAR (CLEAR); COLOR,URINE YELLOW (YELLOW); GLUCOSE,URINE NEGATIVE (NEGATIVE); KETONES,URINE NEGATIVE (NEGATIVE); LEUKOCYTE ESTERASE ,URINE NEGATIVE (NEGATIVE); NITRITE, URINE NEGATIVE (NEGATIVE); PROTEIN URINE NEGATIVE (NEGATIVE); UROBILINOGEN,URINE 0.2 (0.2-1.0)
[2019-12-22 15:29] LABS: CALCIUM 8.3 mg/dL (8.4-11.0); CREATININE 0.86 mg/dL (0.55-1.30); POTASSIUM 3.6 mmol/L (3.5-5.1)
[2019-12-22 15:34] LABS: ALBUMIN 3.2 g/dL (3.4-4.8); TOTAL BILIRUBIN 0.3 mg/dL (0.0-1.0)
[2019-12-22 15:38] LABS: INR 1.1 (0.8-1.2); PROTHROMBIN TIME 10.9 SECS (9.5-12.5)
[2019-12-22 17:10] VITALS: BP_SYST 121
--- NOTE | 2019-12-22 17:10 | NUR ---
Patient given written and verbal discharge instructions and verbalizes understanding. ER MD discussed with patient the results and treatment provided. Patient in stable condition. ID arm band removed. IV catheter removed intact and dressing applied, no active bleeding. Rx given. Patient educated on pain management and to follow up with PMD. Pain Scale 0/10 Opportunity for questions provided and answered. Medication side effect fact sheet provided.
== END 2019-12-22 17:10 | disposition home or self-care (01) ==
LOC: SED 13:57
DX: G89.29 Other chronic pain (principal); M54.5 Low back pain; M54.2 Cervicalgia; M99.89 Other biomechanical lesions of abdomen and other regions; J45.909 Unspecified asthma, uncomplicated; F41.9 Anxiety disorder, unspecified; Z85.850 Personal history of malignant neoplasm of thyroid; Z86.73 Personal history of transient ischemic attack (TIA), and cerebral infarction without residual deficits; Z90.710 Acquired absence of both cervix and uterus; Z79.899 Other long term (current) drug therapy; Z79.82 Long term (current) use of aspirin; Z88.0 Allergy status to penicillin; Z88.1 Allergy status to other antibiotic agents; Z91.018 Allergy to other foods; Z88.2 Allergy status to sulfonamides; W18.39XA Other fall on same level, initial encounter; Y93.89 Activity, other specified; Y92.89 Other specified places as the place of occurrence of the external cause; Y99.8 Other external cause status
CPT/HCPCS: 36415; 71045; 72131; 80053; 81003; 81025; 83605; 83690; 85025; 85610; 85730; 87040; 96374; 96375; 99285; J2270; J2405; J7030

== ENCOUNTER 2020-02-11 23:52 | Emergency (ER) | payer OTHER, MEDICAID ==
[~2020-02-11] VITALS: Ht 154.9 cm; Wt 108.9 kg
[2020-02-12] VITALS: BP_SYST 114
--- NOTE | 2020-02-12 00:06 | NUR ---
Patient to ER bed 4 to gown for evaluation. Side rails up. Report given to Og ARITA.
--- NOTE | 2020-02-12 00:10 | NUR ---
Dr. Mao bedside for pt eval
[2020-02-12] MEDS ORDERED: DIPHENHYDRAMINE INJ 50 MG/ML VIAL IM ONE ×2 (00:15→02:00)
[2020-02-12] MEDS ORDERED: MORPHINE SULFATE 10 MG/ML VIAL IM ONE ×2 (00:15→02:00)
--- NOTE | 2020-02-12 00:17 | NUR ---
PT BIB FAMILY TO E/D C/O S/P SLIP AND FALL WHILE IN A SHOWER ROOM.C/O BACK PAIN AND LEFT LEG PAIN. VSS NO S/S OF ACUTE DISTRESS NO OTHER COMPLAINTS NOTED RESTING ON GURRIGID RAILS UP
--- NOTE | 2020-02-12 01:20 | NUR ---
Pt taken to Radiology in stable condition
--- NOTE | 2020-02-12 01:37 | NUR ---
Pt back from Radiology well tolerated
--- NOTE | 2020-02-12 02:05 | NUR ---
Portable X Ray bedside, well tolerated
--- NOTE | 2020-02-12 02:21 | NUR ---
2nd round IM medications well tolerated
--- NOTE | 2020-02-12 02:31 | NUR ---
Pt taken to Radiology in stable condition
--- NOTE | 2020-02-12 02:48 | NUR ---
Pt back from Radiology, well tolerated
[2020-02-12 03:55] VITALS: BP_SYST 114
--- NOTE | 2020-02-12 03:55 | NUR ---
Patient given written and verbal discharge instructions and verbalizes understanding. ER MD discussed with patient the results and treatment provided. Patient in stable condition. ID arm band removed. Patient educated on pain management and to follow up with PMD. Pain Scale 0/10 Opportunity for questions provided and answered.
== END 2020-02-12 03:55 | disposition home or self-care (01) ==
LOC: SED 23:52
DX: S83.412A Sprain of medial collateral ligament of left knee, initial encounter (principal); M54.5 Low back pain; J45.909 Unspecified asthma, uncomplicated; F41.9 Anxiety disorder, unspecified; Z79.899 Other long term (current) drug therapy; Z79.82 Long term (current) use of aspirin; Z88.0 Allergy status to penicillin; Z88.1 Allergy status to other antibiotic agents; Z88.2 Allergy status to sulfonamides; Z90.49 Acquired absence of other specified parts of digestive tract; W18.09XA Striking against other object with subsequent fall, initial encounter; Y93.89 Activity, other specified; Y92.89 Other specified places as the place of occurrence of the external cause; Y99.8 Other external cause status
CPT/HCPCS: 72131; 73564; 73700; 96372; 99285; J1200; J2270

== ENCOUNTER 2020-02-13 13:11 | Emergency (ER) | payer OTHER, MEDICAID ==
[~2020-02-13] VITALS: Ht 165.1 cm; Wt 90.7 kg
[2020-02-13 13:27] VITALS: BP_SYST 144
[2020-02-13] MEDS: PROCHLORPERAZINE EDISYLATE 10 MG/2 ML VIAL IM ONE (14:18)
[2020-02-13] MEDS: DIPHENHYDRAMINE INJ 50 MG/ML VIAL IM ONE (14:18)
[2020-02-13] MEDS: IBUPROFEN 800 MG TABLET PO ONE (16:21)
[2020-02-13 16:47] VITALS: BP_SYST 116
== END 2020-02-13 16:48 | disposition home or self-care (01) ==
LOC: SED 13:11
DX: S09.90XA Unspecified injury of head, initial encounter (principal); E03.9 Hypothyroidism, unspecified; J45.909 Unspecified asthma, uncomplicated; F41.9 Anxiety disorder, unspecified; Z86.14 Personal history of Methicillin resistant Staphylococcus aureus infection; Z90.710 Acquired absence of both cervix and uterus; Z85.850 Personal history of malignant neoplasm of thyroid; Z86.79 Personal history of other diseases of the circulatory system; Z79.899 Other long term (current) drug therapy; Z79.82 Long term (current) use of aspirin; Z88.1 Allergy status to other antibiotic agents; Z88.0 Allergy status to penicillin; Z88.2 Allergy status to sulfonamides; Z88.6 Allergy status to analgesic agent; Z91.018 Allergy to other foods; W18.2XXA Fall in (into) shower or empty bathtub, initial encounter; Y93.89 Activity, other specified; Y92.89 Other specified places as the place of occurrence of the external cause; Y99.8 Other external cause status
CPT/HCPCS: 70450; 96372; 99284; J0780; J1200

== ENCOUNTER 2020-02-15 15:23 | Emergency (ER) | payer OTHER, MEDICAID ==
[~2020-02-15] VITALS: Ht 154.9 cm; Wt 108.9 kg
[2020-02-15 15:32] VITALS: BP_SYST 111
--- NOTE | 2020-02-15 15:45 | NUR ---
DR LIRA IN TO ASSESS
--- NOTE | 2020-02-15 15:47 | NUR ---
Patient moved to bed 8.
--- NOTE | 2020-02-15 15:55 | NUR ---
YOLANDA TO ASSUME CARE, PLACED IN ROOM 8 ON MONITOR NSR, NORMOTENSIVE ALERT, CALM, RESP UNLABORED, SKIN WARM AND DRY. COMMUNICATES CLEARLY, TEARFUL MULTIPLE LOCATIONS TENDER TO THE TOUCH. C/O HEAD INJURY WITH VOMITING. PERRLA. MOVING ALL 4 EXT
[2020-02-15] MEDS ORDERED: fentaNYL CITRATE/PF 100 MCG/2 ML AMP IVP ONE (16:00)
--- NOTE | 2020-02-15 16:23 | NUR ---
X-RAYS IN PROGRESS
--- NOTE | 2020-02-15 17:05 | NUR ---
BACK FROM CT NO CHANGE IN MENTATION
[2020-02-15] MEDS ORDERED: IBUPROFEN 600 MG TABLET PO ONE (17:30)
[2020-02-15] MEDS ORDERED: ACETAMINOPHEN 500 MG TABLET PO ONE (17:30)
--- NOTE | 2020-02-15 17:40 | NUR ---
SITTING UP ALERT, TOLERATING PO WELL. NO DISTRESS
--- NOTE | 2020-02-15 18:22 | NUR ---
Patient given written and verbal discharge instructions and verbalizes understanding. ER MD discussed with patient the results and treatment provided. Patient in stable condition. ID arm band removed. IV catheter removed intact and dressing applied, no active bleeding. Rx of NONE given. Patient educated on pain management and to follow up with PMD. Pain Scale 0/10 Opportunity for questions provided and answered. Medication side effect fact sheet provided.
[2020-02-15 18:23] VITALS: BP_SYST 108
== END 2020-02-15 18:27 | disposition home or self-care (01) ==
LOC: SED 15:23
DX: S52.121A Displaced fracture of head of right radius, initial encounter for closed fracture (principal); M23.92 Unspecified internal derangement of left knee; F41.9 Anxiety disorder, unspecified; J45.909 Unspecified asthma, uncomplicated; E03.9 Hypothyroidism, unspecified; Z79.899 Other long term (current) drug therapy; Z85.850 Personal history of malignant neoplasm of thyroid; Z90.49 Acquired absence of other specified parts of digestive tract; Z90.710 Acquired absence of both cervix and uterus; Z79.82 Long term (current) use of aspirin; Z88.0 Allergy status to penicillin; Z88.1 Allergy status to other antibiotic agents; Z88.2 Allergy status to sulfonamides; Z88.6 Allergy status to analgesic agent; Z91.018 Allergy to other foods; W01.0XXA Fall on same level from slipping, tripping and stumbling without subsequent striking against object, initial encounter; Y93.89 Activity, other specified; Y92.89 Other specified places as the place of occurrence of the external cause; Y99.8 Other external cause status
CPT/HCPCS: 70450; 71045; 72125; 72170; 73080; 73130; 73552; 73560; 96374; 99285; J3010

== ENCOUNTER 2020-02-18 00:54 | Emergency (ER) | payer OTHER, MEDICAID ==
[~2020-02-18] VITALS: Ht 154.9 cm; Wt 108.9 kg
[2020-02-18 01:08] VITALS: BP_SYST 158
[2020-02-18] MEDS ORDERED: MORPHINE SULFATE 10 MG/ML VIAL IM ONE (01:30)
[2020-02-18] MEDS ORDERED: DIPHENHYDRAMINE INJ 50 MG/ML VIAL IM ONE (01:30)
[2020-02-18 01:51] VITALS: BP_SYST 158
== END 2020-02-18 01:51 | disposition home or self-care (01) ==
LOC: SED 00:54
DX: S83.92XA Sprain of unspecified site of left knee, initial encounter (principal); J45.909 Unspecified asthma, uncomplicated; E03.9 Hypothyroidism, unspecified; F41.9 Anxiety disorder, unspecified; F32.9 Major depressive disorder, single episode, unspecified; Z88.0 Allergy status to penicillin; Z88.2 Allergy status to sulfonamides; Z88.5 Allergy status to narcotic agent; X50.9XXA Other and unspecified overexertion or strenuous movements or postures, initial encounter; Y93.89 Activity, other specified; Y92.89 Other specified places as the place of occurrence of the external cause; Y99.8 Other external cause status
CPT/HCPCS: 96372; 99284; J1200; J2270

== ENCOUNTER 2020-02-22 14:28 | Emergency (ER) | payer OTHER, MEDICAID ==
[~2020-02-22] VITALS: Ht 154.9 cm; Wt 108.9 kg
--- NOTE | 2020-02-22 14:35 | NUR ---
Patient to ER bed 6 to gown for evaluation. Side rails up. Report given to Cindy ARITA
--- NOTE | 2020-02-22 14:38 | NUR ---
Pt reports falling last week on Monday in the shower. Pt reports having 10/10 LLE pain. Pt also states that she is unable to bear weight on the LE
[2020-02-22 14:39] VITALS: BP_SYST 130
--- NOTE | 2020-02-22 14:39 | NUR ---
JIMI Peterson at bedside examining patient.
[2020-02-22 14:57] VITALS: BP_SYST 130
== END 2020-02-22 14:58 | disposition home or self-care (01) ==
LOC: SED 14:28
DX: M25.562 Pain in left knee (principal); J45.909 Unspecified asthma, uncomplicated; E03.9 Hypothyroidism, unspecified; Z86.14 Personal history of Methicillin resistant Staphylococcus aureus infection; Z88.0 Allergy status to penicillin; Z88.1 Allergy status to other antibiotic agents; Z88.2 Allergy status to sulfonamides; Z91.018 Allergy to other foods; Z79.82 Long term (current) use of aspirin; Z79.899 Other long term (current) drug therapy
CPT/HCPCS: 99282

== ENCOUNTER 2020-02-26 07:57 | Emergency (ER) | payer OTHER, MEDICAID ==
[~2020-02-26] VITALS: Ht 154.9 cm; Wt 108.9 kg
--- NOTE | 2020-02-26 08:00 | NUR ---
Placed in room 6 . Placed on site monitor, blood pressure machine and pulse oximeter. To gown for exam. Side rails up.
--- NOTE | 2020-02-26 08:05 | NUR ---
ER Dr. Hawkins at bedside examining patient.
--- NOTE | 2020-02-26 08:05 | NUR ---
Pt bib to ER with c/o back pain 10 x3 days. Reports h/o chronic back pain, takes morphine at home but it isn't working. V/S stable, pt is afebrile. Currently resting in bed, will continue to monitor.
[2020-02-26 08:22] VITALS: BP_SYST 135
[2020-02-26] MEDS ORDERED: KETOROLAC TROMETHAMINE 30 MG VIAL IM ONE (08:30)
--- NOTE | 2020-02-26 09:25 | NUR ---
Patient given written and verbal discharge instructions and verbalizes understanding. ER MD discussed with patient the results and treatment provided. Patient in stable condition. ID arm band removed. No prescriptions given. Patient educated on pain management and to follow up with PMD. Pain Scale 0. Opportunity for questions provided and answered. Medication side effect fact sheet provided.
[2020-02-26 09:29] VITALS: BP_SYST 135
== END 2020-02-26 09:25 | disposition home or self-care (01) ==
LOC: SED 07:57
DX: M54.5 Low back pain (principal); F41.9 Anxiety disorder, unspecified; E03.9 Hypothyroidism, unspecified; J45.909 Unspecified asthma, uncomplicated; Z86.14 Personal history of Methicillin resistant Staphylococcus aureus infection; Z85.850 Personal history of malignant neoplasm of thyroid; Z86.79 Personal history of other diseases of the circulatory system; Z79.899 Other long term (current) drug therapy; Z79.82 Long term (current) use of aspirin; Z88.1 Allergy status to other antibiotic agents; Z88.0 Allergy status to penicillin; Z88.2 Allergy status to sulfonamides; Z88.6 Allergy status to analgesic agent; Z91.018 Allergy to other foods
CPT/HCPCS: 96372; 99283; J1885

== ENCOUNTER 2020-03-10 09:03 | Emergency (ER) | payer OTHER, MEDICAID ==
[~2020-03-10] VITALS: Ht 154.9 cm; Wt 108.9 kg
[~2020-03-10 09:03] MED LIST changes: -ASPI-1153 PO; +ASPI-1393 PO; -MONT10TA25 PO; +MONT10TA27 PO
[2020-03-10 09:12] VITALS: BP_SYST 118
--- NOTE | 2020-03-10 09:12 | NUR ---
Patient to ER bed 03 to gown for evaluation. Side rails up. Report given to LYLA ALFRED.
--- NOTE | 2020-03-10 09:17 | NUR ---
Patient ambulated to the bathroom with a steady gait. Urine specimen collected as ordered by Dr. Mao.
--- NOTE | 2020-03-10 10:04 | NUR ---
ER Dr. Mao at bedside examining patient.
--- NOTE | 2020-03-10 10:32 | NUR ---
Pt is alert and oriented. IVF continued. VSS
[2020-03-10] MEDS ORDERED: ONDANSETRON HCL 4 MG/2 ML VIAL IVP ONE (10:45)
[2020-03-10] MEDS ORDERED: NACL 0.9% 1,000 ML IV ONE (10:45)
--- NOTE | 2020-03-10 11:42 | NUR ---
Pt continues to C/O pain to left clavical area.
[2020-03-10] MEDS ORDERED: fentaNYL CITRATE/PF 100 MCG/2 ML AMP IVP ONE (12:00)
--- NOTE | 2020-03-10 12:30 | NUR ---
medicated as ordered with good effect. VSS
[2020-03-10 13:22] VITALS: BP_SYST 124
--- NOTE | 2020-03-10 13:23 | NUR ---
Patient given written and verbal discharge instructions and verbalizes understanding. ER MD Mao discussed with patient the results and treatment provided. Patient in stable condition. ID arm band removed. IV catheter removed intact and dressing applied, no active bleeding. Rx of ibuprofen given. Patient educated on pain management and to follow up with PMD. Pain Scale 1/10. Opportunity for questions provided and answered. Medication side effect fact sheet provided.
== END 2020-03-10 13:22 | disposition home or self-care (01) ==
LOC: SED 09:03
DX: S23.420A Sprain of sternoclavicular (joint) (ligament), initial encounter (principal); R07.89 Other chest pain; E03.9 Hypothyroidism, unspecified; J45.909 Unspecified asthma, uncomplicated; F41.9 Anxiety disorder, unspecified; Z90.49 Acquired absence of other specified parts of digestive tract; Z90.710 Acquired absence of both cervix and uterus; Z79.899 Other long term (current) drug therapy; Z79.82 Long term (current) use of aspirin; Z88.0 Allergy status to penicillin; Z88.1 Allergy status to other antibiotic agents; Z88.2 Allergy status to sulfonamides; Z88.6 Allergy status to analgesic agent; X58.XXXA Exposure to other specified factors, initial encounter; Y93.89 Activity, other specified; Y92.89 Other specified places as the place of occurrence of the external cause; Y99.8 Other external cause status
CPT/HCPCS: 73000; 73200; 81002; 96361; 96374; 96375; 99284; J2405; J3010; J7030

== ENCOUNTER 2020-03-17 07:06 | Emergency (ER) | payer OTHER, MEDICAID ==
[~2020-03-17] VITALS: Ht 154.9 cm; Wt 108.9 kg
[2020-03-17 07:11] VITALS: BP_SYST 104
--- NOTE | 2020-03-17 07:15 | NUR ---
Patient to ER bed 7 to gown for evaluation. Side rails up. Report given to Marivel ARITA.
--- NOTE | 2020-03-17 07:17 | NUR ---
Patient arrived in the ED c/o left collar bone pain that radiates to the left shoulder pain with shortness of breath that started a few days ago. Denied any chest pain or shortness of breath. Denied any fevers, chills, nausea or vomiting. Patient is alert and oriented x4, respirations even and unlabored, speaking in full sentences, and ambulating with a steady gait. VSS, pain level 10/10. Informed of the approximate wait time. Instructed to notify ED staff for any changes in condition or worsening of symptoms while waiting to be seen by an ED provider. Patient verbalized understanding.
--- NOTE | 2020-03-17 07:51 | NUR ---
ER Dr. Reich at bedside examining patient.
[2020-03-17] MEDS ORDERED: MORPHINE 4 MG/ML INJ. SYRINGE IM ONE (08:00)
--- NOTE | 2020-03-17 08:14 | NUR ---
Administered Morphine Sulfate IM as ordered by Dr. Reich. Patient tolerated the medications well. See eMAR for details.
[2020-03-17] MEDS ORDERED: MORPHINE 2 MG/ML INJ. SYRINGE IM ONE (09:30)
--- NOTE | 2020-03-17 09:34 | NUR ---
Administered Morphine Sulfate IM as ordered by Dr. Reich. Patient tolerated the medications well. See eMAR for details.
[2020-03-17 09:37] VITALS: BP_SYST 104
== END 2020-03-17 09:37 | disposition home or self-care (01) ==
LOC: SED 07:06
DX: M19.012 Primary osteoarthritis, left shoulder (principal); J45.909 Unspecified asthma, uncomplicated; E03.9 Hypothyroidism, unspecified; F41.9 Anxiety disorder, unspecified; Z86.14 Personal history of Methicillin resistant Staphylococcus aureus infection; Z79.899 Other long term (current) drug therapy; Z79.82 Long term (current) use of aspirin; Z88.0 Allergy status to penicillin; Z88.1 Allergy status to other antibiotic agents; Z91.018 Allergy to other foods; Z88.2 Allergy status to sulfonamides
CPT/HCPCS: 93005; 96372; 99284; J2270 ×2

== ENCOUNTER 2020-03-17 20:21 | Emergency (ER) | payer OTHER, MEDICAID ==
[~2020-03-17] VITALS: Ht 154.9 cm; Wt 108.9 kg
[2020-03-17 20:22] VITALS: BP_SYST 127
--- NOTE | 2020-03-17 20:45 | NUR ---
PT AMBULATED TO BED 7 PLACED ON FINAL OPERATIONS TECHNICIAN AND IN GOWN. BP CUFF AND PULSE OX PLACED. PT LAYING IN BED
--- NOTE | 2020-03-17 20:50 | NUR ---
DR. FINNEY AT THE BEDSIDE EVALUATING PT
--- NOTE | 2020-03-17 20:55 | NUR ---
PT PRESENTS FROM HOME WITH CO CHEST PAIN RADIATING TO THE LEFT SIDE SUBSTERNAL AND NEAR CLAVICLES AND AROUND TO LEFT SCAPULA. REPORTS THAT SHE WAS HERE THIS MORNING FOR SIMILAR PAIN AND WAS TREATED, HOWEVER, UPON RETURNING HOME THE PAIN HAS WORSENED. SHE HAS ALSO VOMITTED 3 TIMES. AAOX4, V/S STABLE. WILL CONTINUE TO MONITOR
--- NOTE | 2020-03-17 20:55 | NUR ---
PT GIVEN URINE COLLECTION CUP. PT ABLE TO VOID. SPECIMEN SENT TO LAB
--- NOTE | 2020-03-17 21:00 | NUR ---
# 20 gauge angiocath placed to LAC. Use of asceptic technique. Opsite placed over site. Blood return noted. Blood for lab drawn from site. Flushed with 10 cc of normal saline. No evidence of infiltration noted. Patient tolerated well.
[2020-03-17] MEDS: NACL 0.9% 1,000 ML IV ONE (21:19)
[2020-03-17 21:20] LABS: BASOPHILS # (AUTO) 0.1 K/uL (0.0-0.2); BASOPHILS % (AUTO) 0.5 % (0.0-2.0); EOSINOPHILS # (AUTO) 0.1 K/uL (0.0-0.4); EOSINOPHILS % (AUTO) 0.9 % (0.0-4.0); HEMOGLOBIN 11.8 g/dL (12.0-16.0); LYMPHOCYTES # (AUTO) 1.4 K/uL (1.0-5.5); LYMPHOCYTES % (AUTO) 11.3 % (20.5-51.5); MEAN CORPUSCULAR HEMOGLOBIN 27 pg (27-31); MEAN CORPUSCULAR HGB CONC 33 % (32-36); MEAN CORPUSCULAR VOLUME 83 fL (79.0-98.0); MONOCYTES # (AUTO) 0.7 K/uL (0.0-1.0); MONOCYTES % (AUTO) 5.7 % (1.7-9.3); NEUTROPHILS # (AUTO) 9.9 K/uL (1.8-7.7); NEUTROPHILS % (AUTO) 81.6 % (40.0-70.0); PLATELET COUNT (AUTO) 222 K/uL (130-430); RED BLOOD CELL COUNT(AUTO) 4.36 MIL/uL (4.2-6.2); RED CELL DISTRIBUTION WIDTH 15.7 % (9.0-15.0); WHITE BLOOD COUNT (AUTO) 12.2 K/uL (4.8-10.8)
[2020-03-17] MEDS: MORPHINE 4 MG/ML INJ. SYRINGE IVP ONE (21:20)
[2020-03-17] MEDS: ONDANSETRON HCL 4 MG/2 ML VIAL IVP ONE (21:21)
[2020-03-17] MEDS: NITROGLYCERIN 0.4 MG TAB.SUBL SL ONE (21:21)
[2020-03-17] MEDS: ASPIRIN 325 MG TABLET (ECOTRIN) PO ONE (21:21)
--- NOTE | 2020-03-17 21:22 | NUR ---
PT MEDICATED FOR PAIN PER MD ORDER, PT TOLERATED WELL
[2020-03-17 21:29] LABS: BILIRUBIN,URINE NEGATIVE (NEGATIVE); BLOOD, URINE NEGATIVE (NEGATIVE); CLARITY/URINE CLEAR (CLEAR); COLOR,URINE YELLOW (YELLOW); GLUCOSE,URINE NEGATIVE (NEGATIVE); KETONES,URINE NEGATIVE (NEGATIVE); LEUKOCYTE ESTERASE ,URINE NEGATIVE (NEGATIVE); NITRITE, URINE NEGATIVE (NEGATIVE); PROTEIN URINE NEGATIVE (NEGATIVE); UROBILINOGEN,URINE 0.2 (0.2-1.0)
[2020-03-17 21:35] LABS: ANION GAP 7 (5-15); CALCIUM 7.9 mg/dL (8.4-11.0); CHLORIDE 104 mmol/L (98-107); CREATININE 0.63 mg/dL (0.55-1.30); GLUCOSE 119 mg/dL (70-99); POTASSIUM 3.8 mmol/L (3.5-5.1); SODIUM SERUM 137 mmol/L (136-145); UREA NITROGEN, BLOOD 14 mg/dL (8-21)
[2020-03-17 21:44] LABS: ALANINE AMINOTRANSFERASE 21 U/L (12-78); ALBUMIN 3.1 g/dL (3.4-4.8); ASPARTATE AMINOTRANSFERASE 15 U/L (10-37); TOTAL BILIRUBIN 0.1 mg/dL (0.0-1.0)
[2020-03-17 21:47] LABS: ALCOHOL, BLOOD < 3 mg/dL (<10); GFR AFRICAN AMERICAN 133 mL/min (>90)
[2020-03-17 21:48] LABS: BARBITURATE, URINE NEGATIVE (NEG <=200); URINE AMPHETAMINE NEGATIVE (NEG <=500)
[2020-03-17 21:49] LABS: BENZODIAZEPINE, URINE POSITIVE (NEG <=150); CANNABINOID, URINE NEGATIVE (NEG <=50); COCAINE, URINE NEGATIVE (NEG <=150); METHAMPHETAMINES SCREEN,URINE NEGATIVE (NEG <=500); OPIATE, URINE POSITIVE (NEG <=100); PHENCYCLIDINE SCREEN,URINE NEGATIVE (NEG <=25); UR TRICYCLIC ANTIDEPRESSANTS NEGATIVE (NEG <=300); URINE METHADONE NEGATIVE (NEG <=200); URINE OXYCODONE SCREEN NEGATIVE (NEG <=100); URINE PROPOXYPHENE SCREEN NEGATIVE (NEG <=300)
[2020-03-17] MEDS: KETOROLAC TROMETHAMINE 30 MG VIAL IVP ONE (22:39)
--- NOTE | 2020-03-17 22:39 | NUR ---
PT MEDICATED WITH TORADOL PER MD ORDER, PT TOLERATED WELL
[2020-03-17 23:02] VITALS: BP_SYST 119
== END 2020-03-17 23:02 | disposition home or self-care (01) ==
LOC: SED 20:21
DX: R07.89 Other chest pain (principal); R11.2 Nausea with vomiting, unspecified; F41.9 Anxiety disorder, unspecified; J45.909 Unspecified asthma, uncomplicated; E03.9 Hypothyroidism, unspecified; Z85.850 Personal history of malignant neoplasm of thyroid; Z86.79 Personal history of other diseases of the circulatory system; Z79.899 Other long term (current) drug therapy; Z79.82 Long term (current) use of aspirin; Z88.1 Allergy status to other antibiotic agents; Z88.0 Allergy status to penicillin; Z88.2 Allergy status to sulfonamides; Z88.6 Allergy status to analgesic agent; Z91.018 Allergy to other foods
CPT/HCPCS: 36415; 71045; 80053; 80307; 81003; 83690; 83880; 84484; 85025; 85379; 93005; 96361; 96374; 96375; 99285; G0482; J1885; J2270; J2405; J7030

== ENCOUNTER 2020-03-19 20:02 | Emergency (ER) | payer OTHER, MEDICAID ==
[~2020-03-19] VITALS: Ht 154.9 cm; Wt 108.9 kg
[2020-03-19 20:03] VITALS: BP_SYST 144
--- NOTE | 2020-03-19 20:03 | NUR ---
Patient to ER bed 8 to gown for evaluation. Side rails up. Report given to AB GUERRERO RN.
--- NOTE | 2020-03-19 20:09 | NUR ---
RECEIVED AND IN ROOM, YOLANDA TO ASSUME CARE
--- NOTE | 2020-03-19 20:17 | NUR ---
DR DALY IN TO ASSESS
[2020-03-19 20:23] LABS: BASOPHILS # (AUTO) 0.1 K/uL (0.0-0.2); BASOPHILS % (AUTO) 0.9 % (0.0-2.0); EOSINOPHILS # (AUTO) 0.2 K/uL (0.0-0.4); EOSINOPHILS % (AUTO) 1.7 % (0.0-4.0); HEMATOCRIT 37.4 % (36-48); HEMOGLOBIN 12.1 g/dL (12.0-16.0); LYMPHOCYTES % (AUTO) 15.6 % (20.5-51.5); MEAN CORPUSCULAR HEMOGLOBIN 27 pg (27-31); MEAN CORPUSCULAR HGB CONC 33 % (32-36); MEAN CORPUSCULAR VOLUME 83 fL (79.0-98.0); MONOCYTES # (AUTO) 0.6 K/uL (0.0-1.0); NEUTROPHILS # (AUTO) 9.7 K/uL (1.8-7.7); NEUTROPHILS % (AUTO) 76.8 % (40.0-70.0); PLATELET COUNT (AUTO) 244 K/uL (130-430); RED CELL DISTRIBUTION WIDTH 15.6 % (9.0-15.0); WHITE BLOOD COUNT (AUTO) 12.7 K/uL (4.8-10.8)
--- NOTE | 2020-03-19 20:33 | NUR ---
OFF TO CT , CONSENT SIGNED, NO DISTRESS, ALERT AND CALM
[2020-03-19 20:49] LABS: CREATININE 0.81 mg/dL (0.55-1.30); POTASSIUM 3.3 mmol/L (3.5-5.1)
[2020-03-19 20:54] LABS: TOTAL BILIRUBIN 0.2 mg/dL (0.0-1.0)
[2020-03-19] MEDS: NITROGLYCERIN 0.4 MG TAB.SUBL SL ONE (20:58)
--- NOTE | 2020-03-19 21:15 | NUR ---
ALERT, SR ON MONITOR NO ECTOPY. RESP UNLABORED, CLEAR MENTATION
[2020-03-19] MEDS: LORazepam 2 MG/ML VIAL IVP ONE (21:37)
--- NOTE | 2020-03-19 22:04 | NUR ---
DR DALY IN TO REASSESS. PT CALM, COOPETRATIVE
[2020-03-19 22:17] VITALS: BP_SYST 113
--- NOTE | 2020-03-19 22:26 | NUR ---
Patient given written and verbal discharge instructions and verbalizes understanding. ER MD discussed with patient the results and treatment provided. Patient in stable condition. ID arm band removed. IV catheter removed intact and dressing applied, no active bleeding. Rx of BEN[place] given. Patient educated on pain management and to follow up with PMD. Pain Scale 2/10 Opportunity for questions provided and answered. Medication side effect fact sheet provided.
== END 2020-03-19 22:17 | disposition home or self-care (01) ==
LOC: SED 20:02
DX: R07.89 Other chest pain (principal); F41.9 Anxiety disorder, unspecified; J45.909 Unspecified asthma, uncomplicated; E03.9 Hypothyroidism, unspecified; Z85.850 Personal history of malignant neoplasm of thyroid; Z79.899 Other long term (current) drug therapy; Z79.82 Long term (current) use of aspirin; Z88.0 Allergy status to penicillin; Z88.1 Allergy status to other antibiotic agents; Z88.2 Allergy status to sulfonamides; Z88.6 Allergy status to analgesic agent; Z91.018 Allergy to other foods
CPT/HCPCS: 36415; 71045; 71275; 80053; 81002; 81025; 82550; 83880; 84484; 85025; 93005; 96374; 99285; J2060

== ENCOUNTER 2020-03-23 14:44 | Emergency (ER) | payer OTHER, MEDICAID ==
[~2020-03-23] VITALS: Ht 154.9 cm; Wt 108.9 kg
[2020-03-23 15:07] VITALS: BP_SYST 110
--- NOTE | 2020-03-23 15:10 | NUR ---
Patient to ER bed 5 to gown for evaluation. Side rails up. Report given to TASNEEM ARITA.
--- NOTE | 2020-03-23 15:11 | NUR ---
ER ERIBERTO HALEY examining patient.
--- NOTE | 2020-03-23 15:12 | NUR ---
Patient presented to ER C/O LEFT CLAVICLE PAIN Patient ambulatory to ER, afebrile, skin pink & warm, pain 03/05, denies N/V/D. Patient states she has left clavicle pain x2 days. Pt states she took morphine at midnight with temporary pain relief. Patient reports Hx of chronicle back pain.
[2020-03-23] MEDS ORDERED: KETOROLAC TROMETHAMINE 60 MG/2 ML VIAL IM ONE (15:45)
--- NOTE | 2020-03-23 17:03 | NUR ---
Patient given written and verbal discharge instructions and verbalizes understanding. ER MD discussed with patient the results and treatment provided. Patient in stable condition. ID arm band removed. no Rx given. Patient educated on pain management and to follow up with PMD. Pain Scale 4/10 . Opportunity for questions provided and answered. Medication side effect fact sheet provided.
[2020-03-23 17:05] VITALS: BP_SYST 112
== END 2020-03-23 17:05 | disposition home or self-care (01) ==
LOC: SED 14:44
DX: M94.0 Chondrocostal junction syndrome [Tietze] (principal); J45.909 Unspecified asthma, uncomplicated; E03.9 Hypothyroidism, unspecified; F41.9 Anxiety disorder, unspecified; Z85.850 Personal history of malignant neoplasm of thyroid; Z86.14 Personal history of Methicillin resistant Staphylococcus aureus infection; Z86.73 Personal history of transient ischemic attack (TIA), and cerebral infarction without residual deficits; Z86.79 Personal history of other diseases of the circulatory system; Z79.899 Other long term (current) drug therapy; Z88.0 Allergy status to penicillin; Z88.1 Allergy status to other antibiotic agents; Z88.2 Allergy status to sulfonamides; Z88.6 Allergy status to analgesic agent; Z91.018 Allergy to other foods
CPT/HCPCS: 36415; 81025; 84484; 93005; 96372; 99284; J1885

== ENCOUNTER 2020-03-31 13:51 | Emergency (ER) | payer OTHER, MEDICAID ==
[~2020-03-31] VITALS: Ht 154.9 cm; Wt 108.9 kg
[2020-03-31 14:00] VITALS: BP_SYST 145
[2020-03-31 14:42] VITALS: BP_SYST 145
== END 2020-03-31 14:41 | disposition home or self-care (01) ==
LOC: SED 13:51
DX: M19.019 Primary osteoarthritis, unspecified shoulder (principal); J45.909 Unspecified asthma, uncomplicated; E03.9 Hypothyroidism, unspecified; F41.9 Anxiety disorder, unspecified; Z86.14 Personal history of Methicillin resistant Staphylococcus aureus infection; Z86.79 Personal history of other diseases of the circulatory system; Z79.899 Other long term (current) drug therapy; Z88.0 Allergy status to penicillin; Z88.1 Allergy status to other antibiotic agents; Z88.2 Allergy status to sulfonamides; Z88.6 Allergy status to analgesic agent; Z91.018 Allergy to other foods
CPT/HCPCS: 99281

== ENCOUNTER 2020-04-02 07:18 | Emergency (ER) | payer OTHER, MEDICAID ==
[~2020-04-02] VITALS: Ht 154.9 cm; Wt 108.9 kg
[2020-04-02 07:24] VITALS: BP_SYST 140
--- NOTE | 2020-04-02 07:30 | NUR ---
Patient to ER bed 05 to gown for evaluation. Side rails up.
--- NOTE | 2020-04-02 07:33 | NUR ---
Pt came to ER for L shoulder pain rates 04/04, states it popped while she was attempting to get out of bed to use restroom.
--- NOTE | 2020-04-02 07:34 | NUR ---
ER at bedside examining patient.
--- NOTE | 2020-04-02 07:34 | NUR ---
Ciera hines in ED - 04/02/20 at 0800 by SDMARYW JIMI Hatch at bedside examining patient.
[2020-04-02] MEDS ORDERED: DIAZEPAM 5 MG TABLET (VALIUM) PO ONE (07:45)
[2020-04-02] MEDS ORDERED: KETOROLAC TROMETHAMINE 30 MG VIAL IM ONE (07:45)
[2020-04-02 08:27] VITALS: BP_SYST 140
--- NOTE | 2020-04-02 08:27 | NUR ---
Patient given written and verbal discharge instructions and verbalizes understanding. ER MD discussed with patient the results and treatment provided. Patient in stable condition. ID arm band removed. Rx of Naprosyn given. Patient educated on pain management and to follow up with PMD. Pain Scale 0/10. Opportunity for questions provided and answered. Medication side effect fact sheet provided.
== END 2020-04-02 08:27 | disposition home or self-care (01) ==
LOC: SED 07:18
DX: S46.912A Strain of unspecified muscle, fascia and tendon at shoulder and upper arm level, left arm, initial encounter (principal); J45.909 Unspecified asthma, uncomplicated; F41.9 Anxiety disorder, unspecified; E03.9 Hypothyroidism, unspecified; Z86.14 Personal history of Methicillin resistant Staphylococcus aureus infection; Z90.49 Acquired absence of other specified parts of digestive tract; Z90.710 Acquired absence of both cervix and uterus; Z79.899 Other long term (current) drug therapy; Z79.82 Long term (current) use of aspirin; Z88.0 Allergy status to penicillin; Z88.1 Allergy status to other antibiotic agents; Z88.2 Allergy status to sulfonamides; Z88.6 Allergy status to analgesic agent; Z91.018 Allergy to other foods; Z86.79 Personal history of other diseases of the circulatory system; X50.1XXA Overexertion from prolonged static or awkward postures, initial encounter; Y93.89 Activity, other specified; Y92.89 Other specified places as the place of occurrence of the external cause; Y99.8 Other external cause status
CPT/HCPCS: 73030; 96372; 99283; J1885

== ENCOUNTER 2020-04-27 15:21 | Emergency (ER) | payer OTHER, MEDICAID ==
[~2020-04-27] VITALS: Ht 154.9 cm; Wt 106.1 kg
[2020-04-27 16:04] VITALS: BP_SYST 122
[2020-04-27] MEDS ORDERED: COMMUNICATION ORDER XX ONE (18:00)
[2020-04-27] MEDS ORDERED: DAPTOmycin 500 MG in NS 50 ML IV ONE (18:30)
[2020-04-27] MEDS ORDERED: ONDANSETRON HCL 4 MG/2 ML VIAL IVP ONE (19:00)
[2020-04-27] MEDS ORDERED: DIPHENHYDRAMINE INJ 50 MG/ML VIAL IVP ONE (19:00)
[2020-04-27] MEDS ORDERED: KETOROLAC TROMETHAMINE 30 MG VIAL IVP ONE (19:00)
[2020-04-27 21:00] VITALS: BP_SYST 122
== END 2020-04-27 21:00 | disposition home or self-care (01) ==
LOC: SED 15:21
DX: L03.311 Cellulitis of abdominal wall (principal); R03.0 Elevated blood-pressure reading, without diagnosis of hypertension; J45.909 Unspecified asthma, uncomplicated; F41.9 Anxiety disorder, unspecified; E03.9 Hypothyroidism, unspecified; Z86.14 Personal history of Methicillin resistant Staphylococcus aureus infection; Z85.850 Personal history of malignant neoplasm of thyroid; Z86.79 Personal history of other diseases of the circulatory system; Z79.899 Other long term (current) drug therapy; Z79.82 Long term (current) use of aspirin; Z88.0 Allergy status to penicillin; Z88.1 Allergy status to other antibiotic agents; Z88.2 Allergy status to sulfonamides; Z88.6 Allergy status to analgesic agent; Z91.018 Allergy to other foods
CPT/HCPCS: 96365; 96375; 99284; J0878; J1200; J1885; J2405

== ENCOUNTER 2020-05-26 17:04 | Emergency (ER) | payer OTHER, MEDICAID, SELFPAY ==
[~2020-05-26] VITALS: Ht 154.9 cm; Wt 104.3 kg
[2020-05-26 17:05] VITALS: BP_SYST 137
--- NOTE | 2020-05-26 17:05 | NUR ---
PT TAKEN INTO COVID TENT, TRIAGED AND WILL ASSUME CARE.
--- NOTE | 2020-05-26 17:11 | NUR ---
PT STATES FOR THE LAST 2 DAYS SHE HAS HAD COVID SYMPTOMS, BUT TODAY SHE LOST HER TASTE AND SMELL. STATES BODY ACHES WITH COUGHING. DENIES ANY FEVERS. STATES SHE FEELS HORRIBLE.
--- NOTE | 2020-05-26 17:53 | NUR ---
DR LIRA TO TENT TO EVALUATE PT.
[2020-05-26 18:44] VITALS: BP_SYST 124
--- NOTE | 2020-05-26 18:45 | NUR ---
Patient given written and verbal discharge instructions and verbalizes understanding. ER MD discussed with patient the results and treatment provided. Patient in stable condition. ID arm band removed. Rx of NONE given. Patient educated on pain management and to follow up with PMD. Pain Scale 0/10. Opportunity for questions provided and answered. Medication side effect fact sheet provided.
== END 2020-05-26 18:44 | disposition home or self-care (01) ==
LOC: SED 17:04
DX: U07.1 COVID-19 (principal); J45.909 Unspecified asthma, uncomplicated; E03.9 Hypothyroidism, unspecified; F41.9 Anxiety disorder, unspecified; Z86.14 Personal history of Methicillin resistant Staphylococcus aureus infection; Z86.79 Personal history of other diseases of the circulatory system; Z85.850 Personal history of malignant neoplasm of thyroid; Z79.899 Other long term (current) drug therapy; Z79.82 Long term (current) use of aspirin; Z88.0 Allergy status to penicillin; Z88.1 Allergy status to other antibiotic agents; Z88.2 Allergy status to sulfonamides; Z88.6 Allergy status to analgesic agent; Z91.018 Allergy to other foods
CPT/HCPCS: 99283; C9803; U0003

== ENCOUNTER 2020-12-08 17:55 | Emergency (ER) | payer OTHER, MEDICAID, SELFPAY ==
[~2020-12-08] VITALS: Ht 154.9 cm; Wt 104.3 kg
[~2020-12-08 17:55] MED LIST changes: -MONT10TA27 PO; +MONT10TA33 PO
[2020-12-08 18:11] VITALS: BP_SYST 139
[2020-12-08] MEDS ORDERED: KETOROLAC TROMETHAMINE 30 MG VIAL IVP ONE (18:45)
[2020-12-08] MEDS ORDERED: HYDROcodone/ACETAMIN 10-325 MG TAB PO ONE (19:00)
[2020-12-08 19:16] LABS: BASOPHILS % (AUTO) 0.4 % (0.0-2.0); EOSINOPHILS # (AUTO) 0.2 K/uL (0.0-0.4); EOSINOPHILS % (AUTO) 1.9 % (0.0-4.0); HEMATOCRIT 35.2 % (36-48); HEMOGLOBIN 11.4 g/dL (12.0-16.0); LYMPHOCYTES # (AUTO) 1.7 K/uL (1.0-5.5); LYMPHOCYTES % (AUTO) 15.2 % (20.5-51.5); MEAN CORPUSCULAR HEMOGLOBIN 27 pg (27-31); MEAN CORPUSCULAR HGB CONC 33 % (32-36); MEAN CORPUSCULAR VOLUME 82 fL (79.0-98.0); MONOCYTES # (AUTO) 0.6 K/uL (0.0-1.0); MONOCYTES % (AUTO) 5.3 % (1.7-9.3); NEUTROPHILS # (AUTO) 8.6 K/uL (1.8-7.7); NEUTROPHILS % (AUTO) 77.2 % (40.0-70.0); PLATELET COUNT (AUTO) 282 K/uL (130-430); RED BLOOD CELL COUNT(AUTO) 4.32 MIL/uL (4.2-6.2); RED CELL DISTRIBUTION WIDTH 16.3 % (9.0-15.0); WHITE BLOOD COUNT (AUTO) 11.1 K/uL (4.8-10.8)
[2020-12-08 19:18] LABS: CREATININE 0.73 mg/dL (0.55-1.30); POTASSIUM 3.4 mmol/L (3.5-5.1)
[2020-12-08 19:40] LABS: PROTHROMBIN TIME 10.4 SECS (9.5-12.5)
[2020-12-08] MEDS ORDERED: HYDROcodone/ACETAMIN 5-325 MG TAB (NORCO/ VICODIN) PO ONE (20:00)
[2020-12-08] MEDS ORDERED: DEXAMETHASONE SOD PHOSPHATE 10 MG/ML VIAL IVP ONE (22:00)
[2020-12-08] MEDS ORDERED: LORazepam 2 MG/ML VIAL IVP ONE (23:00)
[2020-12-08] MEDS ORDERED: MORPHINE 4 MG INJ. 4 MG/ML VIAL IVP ONE (23:00)
[2020-12-08 23:12] VITALS: BP_SYST 135
== END 2020-12-08 23:13 | disposition short-term general hospital (02) ==
LOC: SED 17:55
DX: M54.5 Low back pain (principal); R20.0 Anesthesia of skin; R53.1 Weakness; J45.909 Unspecified asthma, uncomplicated; E03.9 Hypothyroidism, unspecified; Z88.0 Allergy status to penicillin; Z88.1 Allergy status to other antibiotic agents; Z88.8 Allergy status to other drugs, medicaments and biological substances; Z88.2 Allergy status to sulfonamides; Z79.899 Other long term (current) drug therapy; Z20.822 Contact with and (suspected) exposure to COVID-19
CPT/HCPCS: 36415; 72131; 76376; 80048; 81025; 85025; 85610; 86886; 86900; 86901; 87426; 96374; 96375; 99285; J1100; J1885; J2060; J2270

== ENCOUNTER 2021-01-15 14:33 | Emergency (ER) | payer OTHER, MEDICAID ==
[~2021-01-15] VITALS: Ht 154.9 cm; Wt 108.9 kg
[2021-01-15 15:00] VITALS: BP_SYST 118
[2021-01-15] MEDS ORDERED: KETOROLAC TROMETHAMINE 60 MG/2 ML VIAL IM ONE (15:45)
[2021-01-15 17:40] VITALS: BP_SYST 118
== END 2021-01-15 17:41 | disposition home or self-care (01) ==
LOC: SED 14:33
DX: S29.012A Strain of muscle and tendon of back wall of thorax, initial encounter (principal); E03.9 Hypothyroidism, unspecified; J45.909 Unspecified asthma, uncomplicated; F41.9 Anxiety disorder, unspecified; Z88.0 Allergy status to penicillin; Z88.1 Allergy status to other antibiotic agents; Z88.2 Allergy status to sulfonamides; Z88.8 Allergy status to other drugs, medicaments and biological substances; Z79.899 Other long term (current) drug therapy; W20.8XXA Other cause of strike by thrown, projected or falling object, initial encounter; Y93.89 Activity, other specified; Y92.89 Other specified places as the place of occurrence of the external cause; Y99.8 Other external cause status
CPT/HCPCS: 29505; 73564; 73610; 73630; 96372; 99284; J1885

== ENCOUNTER 2021-02-25 21:38 | Emergency (ER) | payer OTHER, MEDICAID ==
[~2021-02-25] VITALS: Ht 154.9 cm; Wt 104.3 kg
[2021-02-25 21:47] VITALS: BP_SYST 141
--- NOTE | 2021-02-25 21:54 | NUR ---
Patient to [facility] for evaluation. Side rails up.
--- NOTE | 2021-02-25 22:01 | NUR ---
Dr. Franz bedside for pt eval
[2021-02-25] MEDS ORDERED: HYDROcodone/ACETAMIN 5-325 MG TAB (NORCO/ VICODIN) PO ONE (22:15)
[2021-02-25] MEDS ORDERED: IBUPROFEN 600 MG TABLET PO ONE (22:15)
--- NOTE | 2021-02-25 22:15 | NUR ---
Dr. Starks taking over care
[2021-02-25] MEDS ORDERED: HYDROcodone/ACETAMIN 5-325 MG TAB (NORCO/ VICODIN) ONE (22:17)
--- NOTE | 2021-02-25 22:18 | NUR ---
PT BIB FAMILY TO ED C/O +RT KNEE PAIN, HEARD A "POP" WHILE GETTING INTO BED. NO HX AND VSS NO S/S OF ACUTE DISTRESS RESTING ON GURNEY RAILS UP
[2021-02-25] MEDS ORDERED: HYDR-3917 PO (23:18)
[2021-02-25] MEDS ORDERED: NAPR-686 PO (23:18)
[2021-02-25 23:25] VITALS: BP_SYST 141
--- NOTE | 2021-02-25 23:25 | NUR ---
Patient given written and verbal discharge instructions and verbalizes understanding. ER MD discussed with patient the results and treatment provided. Patient in stable condition. ID arm band removed. Rx of Naproxen and [facility] given. Patient educated on pain management and to follow up with PMD. Pain Scale 0/10 Opportunity for questions provided and answered. Medication side effect fact sheet provided.
== END 2021-02-25 23:25 | disposition home or self-care (01) ==
LOC: SED 21:38
DX: M23.91 Unspecified internal derangement of right knee (principal); M25.461 Effusion, right knee; E03.9 Hypothyroidism, unspecified; J45.909 Unspecified asthma, uncomplicated; F41.9 Anxiety disorder, unspecified; Z88.0 Allergy status to penicillin; Z88.1 Allergy status to other antibiotic agents; Z88.2 Allergy status to sulfonamides; Z79.899 Other long term (current) drug therapy; Z88.8 Allergy status to other drugs, medicaments and biological substances
CPT/HCPCS: 73564; 99283

== ENCOUNTER 2021-03-05 21:33 | Emergency (ER) | payer OTHER, MEDICAID ==
[~2021-03-05] VITALS: Ht 154.9 cm; Wt 106.6 kg
[~2021-03-05 21:33] MED LIST changes: +HYDR-3917 PO; +NAPR-686 PO
[2021-03-05 22:00] VITALS: BP_SYST 147
== END 2021-03-05 23:00 | disposition left against medical advice (07) ==
LOC: SED 21:33
DX: L02.211 Cutaneous abscess of abdominal wall (principal); L02.01 Cutaneous abscess of face; Z53.21 Procedure and treatment not carried out due to patient leaving prior to being seen by health care provider

== ENCOUNTER 2022-03-08 19:44 | Emergency (ER) | payer OTHER, MEDICAID ==
[~2022-03-08] VITALS: Ht 154.9 cm; Wt 108.9 kg
[~2022-03-08 19:44] MED LIST changes: +MONT-40 PO; -MONT10TA33 PO
[2022-03-08 20:03] VITALS: BP_SYST 130
--- NOTE | 2022-03-08 20:05 | NUR ---
Pt from home with c/o of headache, neck pain, back, N/V and diarrhea. Pt reports spraining back while putting on clothes this weekend. Report separate incident of hitting head and fallin after she states her "legs feel like jello" LOC for 3-4 minutes, wintessed by . Pt has DVT in left arm since April.
--- NOTE | 2022-03-08 20:18 | NUR ---
Patient to ER bed HB1 to gown for evaluation. Side rails up. Report given to Zen ARITA.
--- NOTE | 2022-03-08 20:31 | NUR ---
patient in hallway. Assessed patient and answered all questions
--- NOTE | 2022-03-08 20:48 | NUR ---
went to see patient
[2022-03-08] MEDS ORDERED: METOCLOPRAMIDE HCL 10 MG/2 ML VIAL IVP ONE (21:00)
[2022-03-08] MEDS ORDERED: DIPHENHYDRAMINE INJ 50 MG/ML VIAL IVP ONE (21:00)
[2022-03-08] MEDS ORDERED: MORPHINE 4 MG INJ. 4 MG/ML VIAL IVP ONE (21:00)
[2022-03-08] MEDS ORDERED: NACL 0.9% 1,000 ML IV ONE (21:00)
--- NOTE | 2022-03-08 21:18 | NUR ---
# 20 gauge angiocath placed to RAC. Use of asceptic technique. Opsite placed over site. Blood return noted. Blood for lab drawn from site. Flushed with 10 cc of normal saline. No evidence of infiltration noted. Patient tolerated well.
--- NOTE | 2022-03-08 21:40 | NUR ---
patient went to CT scan
[2022-03-08 21:56] LABS: ALBUMIN 3.3 g/dL (3.4-4.8); CALCIUM 9.1 mg/dL (8.4-11.0); CREATININE 0.85 mg/dL (0.55-1.30); POTASSIUM 3.8 mmol/L (3.5-5.1); TOTAL BILIRUBIN 0.3 mg/dL (0.0-1.0)
[2022-03-08 22:01] LABS: BASOPHILS % (AUTO) 0.3 % (0.0-2.0); EOSINOPHILS # (AUTO) 0.2 K/uL (0.0-0.4); EOSINOPHILS % (AUTO) 1.6 % (0.0-4.0); HEMATOCRIT 37.4 % (36-48); LYMPHOCYTES # (AUTO) 2.1 K/uL (1.0-5.5); LYMPHOCYTES % (AUTO) 15.7 % (20.5-51.5); MEAN CORPUSCULAR VOLUME 80 fL (79.0-98.0); MONOCYTES # (AUTO) 0.6 K/uL (0.0-1.0); MONOCYTES % (AUTO) 4.5 % (1.7-9.3); NEUTROPHILS # (AUTO) 10.5 K/uL (1.8-7.7); NEUTROPHILS % (AUTO) 77.9 % (40.0-70.0); PLATELET COUNT (AUTO) 290 K/uL (130-430); RED BLOOD CELL COUNT(AUTO) 4.68 MIL/uL (4.2-6.2); RED CELL DISTRIBUTION WIDTH 17.1 % (9.0-15.0); WHITE BLOOD COUNT (AUTO) 13.5 K/uL (4.8-10.8)
[2022-03-08] MEDS ORDERED: METO-290 PO (23:07)
[2022-03-08 23:23] VITALS: BP_SYST 93
--- NOTE | 2022-03-08 23:23 | NUR ---
Patient given written and verbal discharge instructions and verbalizes understanding. ER Dr. Tena discussed with patient the results and treatment provided. Patient in stable condition. ID arm band removed. IV catheter removed intact and dressing applied, no active bleeding. Rx of reglan given. Patient educated on pain management and to follow up with PMD. Pain Scale 0. Opportunity for questions provided and answered. Medication side effect fact sheet provided.
== END 2022-03-08 23:23 | disposition home or self-care (01) ==
LOC: SED 19:44
DX: S06.0X0A Concussion without loss of consciousness, initial encounter (principal); R11.10 Vomiting, unspecified; R42 Dizziness and giddiness; J45.909 Unspecified asthma, uncomplicated; Z88.0 Allergy status to penicillin; Z88.1 Allergy status to other antibiotic agents; Z88.2 Allergy status to sulfonamides; Z79.899 Other long term (current) drug therapy; X58.XXXA Exposure to other specified factors, initial encounter; Y93.89 Activity, other specified; Y92.89 Other specified places as the place of occurrence of the external cause; Y99.8 Other external cause status
CPT/HCPCS: 99284; 96374; 70450; 96375; 96361; 80053; 83690; 85025; 36415; 76376; 81025; J1200; J2765; J2270; J7030

== ENCOUNTER 2022-08-03 10:04 | Emergency (ER) | payer OTHER, MEDICAID ==
[~2022-08-03] VITALS: Ht 154.9 cm; Wt 111.1 kg
[~2022-08-03 10:04] MED LIST changes: +METO-290 PO
[2022-08-03 10:05] VITALS: BP_SYST 148
--- NOTE | 2022-08-03 10:10 | NUR ---
Patient triaged and placed in waiting room. VSS and patient appears in no acute distress at this time. Accompanied by SPOUSE, awaiting available bed, and MD notified of need for MSE.
--- NOTE | 2022-08-03 10:22 | NUR ---
SEEN AND EVALUATED BY DR MORLEY IN WAITING ROOM. ORDERS TO BE PLACED
--- NOTE | 2022-08-03 10:25 | NUR ---
PT STATES THAT SHE HAS HAD RIGHT ARM PAIN FROM SHOULDER TO FINGERTIPS FOR LAST 3 DAYS, PT DENIES ANY INJURY OR TRAUMA. PT STATES RIGHT HAND IS SWOLLEN AND JOINTS HURT TO WHOLE ARM. LIMITED ROM DUE TO PAIN.
[2022-08-03] MEDS ORDERED: HYDROcodone/ACETAMIN 5-325 MG TAB (NORCO/ VICODIN) PO ONE (14:00)
[2022-08-03] MEDS ORDERED: IBUP-1969 PO (14:23)
--- NOTE | 2022-08-03 15:28 | NUR ---
Patient given verbal discharge instructions and verbalizes understanding. ER MD discussed with patient the results and treatment provided. Patient in stable condition. ID arm band removed. IV catheter removed intact and dressing applied, no active bleeding. Rx of IBUPROFEN given. Patient educated on pain management and to follow up with PMD. Pain Scale 0/10. Opportunity for questions provided and answered. Medication side effect fact sheet provided.
[2022-08-03 15:31] VITALS: BP_SYST 148
== END 2022-08-03 15:28 | disposition home or self-care (01) ==
LOC: SED 10:04
DX: I82.621 Acute embolism and thrombosis of deep veins of right upper extremity (principal); M79.621 Pain in right upper arm; J45.909 Unspecified asthma, uncomplicated; Z88.0 Allergy status to penicillin; Z88.1 Allergy status to other antibiotic agents; Z88.2 Allergy status to sulfonamides; Z88.5 Allergy status to narcotic agent; Z79.899 Other long term (current) drug therapy
CPT/HCPCS: 71045; 93971; 99284